=== PATIENT | male | born 1940 | race Caucasian/White ===

== ENCOUNTER 2016-06-02 20:44 | Inpatient (IN) | payer MEDICARE, BC ==
[~2016-06-02] VITALS: Ht 177.8 cm; Wt 103.5 kg
[~2016-06-02 20:44] MED LIST: ASPI81TA2 PO; CITA20TA5 PO; CLON0.5T3 PO; DOCU50CA9 PO; DONE10TA7 PO; LEVO137T3 PO; MELA3TAB PO; MEMA10TA PO; MULT-18 PO; OMEG300C PO; OMEP40CA5 PO; SIMV40TA3 PO; colon health
[2016-06-02 21:55] LABS: BASO # 0.1 x10^3/uL (0.0-0.2); BASO % 1 % (0-3); EOS % 2 % (0-3); HEMATOCRIT 31.7 % (39.0-53.0); HEMOGLOBIN 10.4 g/dL (13.0-17.5); LYMPH # 2.3 x10^3/uL (1.0-4.8); LYMPH % 20 % (24-48); MEAN CORPUSCULAR HEMOGLOBIN 29 pg (25-35); MEAN CORPUSCULAR HGB CONC 33 g/dL (31-37); MEAN CORPUSCULAR VOLUME 88 fL (79-100); MONO % 6 % (0-9); NEUT % 71 % (31-73); PLATELET COUNT 426 x10^3/uL (140-400); RED BLOOD COUNT 3.58 x10^6/uL (4.30-5.70); RED CELL DISTRIBUTION WIDTH 14.8 % (11.5-14.5); WHITE BLOOD COUNT 11.2 x10^3/uL (4.0-11.0)
[2016-06-02] MEDS ORDERED: FUROSEMIDE 40 MG/4 ML VIAL IVP ONE (22:00)
[2016-06-02 22:10] LABS: CALCIUM 8.8 mg/dL (8.5-10.1); CREATININE 1.4 mg/dL (0.7-1.3); GFR 49.4; POTASSIUM 4.1 mmol/L (3.5-5.1)
[2016-06-02 22:14] LABS: ALBUMIN 2.9 g/dL (3.4-5.0); DIRECT BILIRUBIN 0.1 mg/dL (0.0-0.2); TOTAL BILIRUBIN 0.6 mg/dL (0.2-1.0)
[2016-06-02 22:18] LABS: % BASOS 2 % (0-3); % EOS 1 % (0-5); PLT ESTIMATE INCREASED (ADEQUATE)
[2016-06-02] MEDS ORDERED: ACETAMINOPHEN 325 MG TABLET. PO PRN (23:00)
[2016-06-02] MEDS ORDERED: ONDANSETRON PF 4 MG/2 ML VIAL. IV PRN (23:00)
[2016-06-02 23:14] LABS: INR 1.7 (0.8-1.1); PROTHROMBIN TIME PATIENT 18.7 SEC (11.7-14.0)
[2016-06-03] VITALS (7 sets, daily range): BP systolic 100–131; BP diastolic 55–76
[2016-06-03] MEDS ORDERED: WARF5TAB7 PO (01:15)
[2016-06-03] MEDS ORDERED: LEVO150T5 PO (01:15)
[2016-06-03] MEDS ORDERED: CITA40TA5 PO (01:15)
[2016-06-03] MEDS ORDERED: ENOX100D3 SQ (01:15)
--- NOTE | 2016-06-03 05:20 | PHYS DOC ---
Past Medical History Past Medical History: DVT, Other Additional Past Medical Histor: pulmonary embolism, Alzheimer's, sleep apnea Past Surgical History: Knee Replacement, Other Additional Past Surgical Histo: IVC filter, stimulator in back, cataracts Alcohol Use: None Drug Use: None Adult General Chief Complaint Chief Complaint: LOWER EXTREMITY SWELLING HPI HPI Patient is a 76 year old gentleman who has a history significant for DVT in the past presents to ER today secondary to anasarca. Patient apparently had a DVT back in 2008 and had an inferior vena cava filter placed at that time. Patient was admitted to [facility] approximately 2 weeks ago at which time he was found to have a DVT in his right lower extremity on May 19 and then again another DVT. Left lower external E on May 27. Patient was discharged home on May 31. The patient's reports that she has been taking care of him without any incident up until this evening when she noticed that he was complaining of pain to his groin. She reports that she looked his groin and she had a significant amount of swelling around his scrotum although his legs as well as stomach. Patient reports that her has no shortness of breath chest pain fever shakes chills. She reports she has had a small cough. She reports it had decreased by mouth intake. She reports that he's had decreased urinary output as well. Patient has no history of hypertension diabetes living longer kidney problems. She denies any history of CHF in the past. Review of Systems Review of Systems Constitutional: Denies fever or chills [] Eyes: Denies change in visual acuity, redness, or eye pain [] All other review of systems are negative except as documented in the history of present illness portion. Current Medications Current Medications Current Medications Medications (Trade) Dose Ordered Sig/[facility] Start Time Stop Time Status Last Admin Dose Admin Acetaminophen (Tylenol) 650 mg PRN Q4HRS PRN 06/02/16 23:00 06/03/16 22:59 Furosemide (Lasix) 40 mg 1X ONCE 06/02/16 22:00 06/02/16 22:01 DC 06/02/16 22:13 40 MG Ondansetron HCl (Zofran) 4 mg PRN Q8HRS PRN 06/02/16 23:00 06/03/16 22:59 Allergies Allergies Allergies Coded Allergies Type Severity Reaction Last Updated Verified No Known Drug Allergies 06/18/14 No Physical Exam Physical Exam Constitutional: Well developed, well nourished, no acute distress, non-toxic appearance. [] HENT: Normocephalic, atraumatic, bilateral external ears normal, oropharynx moist, no oral exudates, nose normal. [] Eyes: PERRLA, EOMI, conjunctiva normal, no discharge. [] Neck: Normal range of motion, no tenderness, supple, no stridor. [] Cardiovascular:Heart rate regular rhythm, no murmur [] Lungs & Thorax: Bilateral breath sounds clear to auscultation [] Abdomen: Bowel sounds normal, soft, no tenderness, no masses, no pulsatile masses. [] Skin: Warm, dry, no erythema, no rash. [] Back: No tenderness, no CVA tenderness. [] Extremities: Patient has 3+ pitting edema all the way up to his abdomen. Patient has a significant amount of scrotal edema. Patient has a significant amount of penile edema. Neurologic: Alert and oriented X 3, normal motor function, normal sensory function, no focal deficits noted. [] Psychologic: Affect normal, judgement normal, mood normal. [] Current Patient Data Vital Signs Vital Signs Date Time Temp Pulse Resp B/P Pulse Ox O2 Delivery O2 Flow Rate FiO2 06/02/16 22:49 72 17 125/66 98 Room Air 06/02/16 20:45 98.8 98.8 Lab Values Laboratory Tests Test 06/02/16 20:50 White Blood Count 11.2x10^3/uL (4.0-11.0) H Red Blood Count 3.58x10^6/uL (4.30-5.70) L Hemoglobin 10.4g/dL (13.0-17.5) L Hematocrit 31.7% (39.0-53.0) L Mean Corpuscular Volume 88fL (79-100) Mean Corpuscular Hemoglobin 29pg (25-35) Mean Corpuscular Hemoglobin Concent 33g/dL (31-37) Red Cell Distribution Width 14.8% (11.5-14.5) H Platelet Count 426x10^3/uL (140-400) H Neutrophils (%) (Auto) 71% (31-73) Lymphocytes (%) (Auto) 20% (24-48) L Monocytes (%) (Auto) 6% (0-9) Eosinophils (%) (Auto) 2% (0-3) Basophils (%) (Auto) 1% (0-3) Neutrophils # (Auto) 8.0x10^3uL (1.8-7.7) H Lymphocytes # (Auto) 2.3x10^3/uL (1.0-4.8) Monocytes # (Auto) 0.7x10^3/uL (0.0-1.1) Eosinophils # (Auto) 0.2x10^3/uL (0.0-0.7) Basophils # (Auto) 0.1x10^3/uL (0.0-0.2) Segmented Neutrophils % 66% (35-66) Band Neutrophils % 2% (0-9) Lymphocytes % 21% (24-48) L Atypical Lymphocytes % (Manual) 1% (0-0) H Monocytes % 7% (0-10) Eosinophils % 1% (0-5) Basophils % 2% (0-3) Platelet Estimate Increased (ADEQUATE) Prothrombin Time 18.7SEC (11.7-14.0) H Prothrombin Time INR 1.7 (0.8-1.1) H Sodium Level 140mmol/L (136-145) Potassium Level 4.1mmol/L (3.5-5.1) Chloride Level 105mmol/L (98-107) Carbon Dioxide Level 26mmol/L (21-32) Anion Gap 9 (6-14) Blood Urea Nitrogen 23mg/dL (8-26) Creatinine 1.4mg/dL (0.7-1.3) H Estimated GFR (Cockcroft-Gault) 49.4 Glucose Level 95mg/dL (70-99) Calcium Level 8.8mg/dL (8.5-10.1) Total Bilirubin 0.6mg/dL (0.2-1.0) Direct Bilirubin 0.1mg/dL (0.0-0.2) Aspartate Amino Transferase (AST) 64U/L (15-37) H Alanine Aminotransferase (ALT) 60U/L (16-63) Alkaline Phosphatase 90U/L (46-116) Troponin I Quantitative < 0.017ng/mL (0.000-0.055) TE-Tjq-C-Type Natriuretic Peptide 559pg/mL (0-449) H Total Protein 7.0g/dL (6.4-8.2) Albumin 2.9g/dL (3.4-5.0) L Laboratory Tests 06/02/16 20:50 Laboratory Tests 06/02/16 20:50 EKG EKG [] Radiology/Procedures Radiology/Procedures [] Chest x-ray did not reveal any evidence of pulmonary edema. Patient's EKG reveals sinus tachycardia at 107 with evidence of a right bundle branch block. Course & Med Decision Making Course & Med Decision Making Pertinent Labs and Imaging studies reviewed. (See chart for details) [] This is a 76-year-old gentleman who presents to the ER today with anasarca. Patient has an elevated BNP. This is concerning for possible new onset CHF versus increased peripheral edema secondary to his IVC filter with possible migration of this clot proximally. Patient is currently on Lovenox and Coumadin. Patient will be admitted for diuresis and further evaluation of his cardiac status and for assessment and treatment of his anasarca. Dragon Disclaimer Dragon Disclaimer This electronic medical record was generated, in whole or in part, using a voice recognition dictation system. Departure Departure Impression: Primary Impression: Anasarca Disposition: ADMITTED INPATIENT Admitting Physician: Sam Warren Condition: GUARDED Referrals: LAURO PRESSLEY MD (PCP) VU URIBE MD Jun 03, 2016 05:20
--- NOTE | 2016-06-03 08:23 | RAD ---
Portable chest, 06/02/2016: History: Anasarca Comparison is made to a study from 06/18/2014. The heart size and pulmonary vascularity are normal. No pulmonary infiltrates are seen. There is no evidence of pleural fluid. IMPRESSION: No acute cardiopulmonary abnormality is detected.
--- NOTE | 2016-06-03 10:47 | PDOC2 ---
CHIQUI PLEITEZ BONUS CLERK 06/03/16 1047: CARDIAC CONSULT DATE OF CONSULT Date of Consult DATE: 06/03/16 TIME: 10:38 REASON FOR CONSULT Reason for Consult: Anasarca, elevated BNP REFERRING PHYSICIAN Referring Physician: Manjit SOURCE Source: Chart review, Patient HISTORY OF PRESENT ILLNESS HISTORY OF PRESENT ILLNESS This is a 76 yo male admitted for notable anasarca with LE DVTs. His LE DVTs are well documented with placement of IVC filter in the past as well. He has Alzheimers dementia and currently confused which is likely his baseline. I was unable to obtain details of his symptoms since his family is not available. Per chart review, no notable symptoms of SOA nor CORDOVA. No noted CP, no palpitations, or reports of any arrhythmias via tele monitor. He has been noted with right groin tenderness, scrotal edema, anasarca. Consult is for anasarca and elevated BNP. Clinically no symptoms of acute CHF. No known CAD. CHF. PAST MEDICAL HISTORY Cardiovascular: HTN, Syncope, Hyperlipidemia Pulmonary: Pulmonary embolus (with multiple LE DVT), Other (KEM) CENTRAL NERVOUS SYSTEM: CVA, Dementia (alzheimers) GI: Constipation Musculoskeletal: Osteoarthritis Endocrine: Diabetes (2), Hypothyroidism Dermatology: No pertinent hx PAST SURGICAL HISTORY Past Surgical History: Cataract Removal, Total knee replacement, Other (back stimulator; IVC filter; colon surgery) FAMILY HISTORY Family History: Family History Unknown SOCIAL HISTORY Smoke: No ALCOHOL: none Drugs: None Lives: Half-Way CURRENT MEDICATIONS CURRENT MEDICATIONS Current Medications Medications (Trade) Dose Ordered Sig/Luis Armando Route PRN Reason Start Time Stop Time Status Last Admin Dose Admin Furosemide (Lasix) 40 mg 1X ONCE IVP 06/02/16 22:00 06/02/16 22:01 DC 06/02/16 22:13 ALLERGIES ALLERGIES: Coded Allergies: No Known Drug Allergies (Unverified , 06/18/14) ROS Review of System unreliable due to dementia PHYSICAL EXAM General: Alert, Cooperative, No acute distress HEENT: Atraumatic, Mucous membr. moist/pink Lungs: Clear to auscultation, Normal air movement Heart: Regular rate, Normal S1, Normal S2, Other (possible ansarca) Abdomen: Other (unable to assess due to active tension to abdominal muscles during palpation, but notable grimacing) Extremities: No cyanosis, Other (2-3+ bilateral LE pitting edema from foot to thigh. scrotal edema, ) Skin: No breakdown, No significant lesion, Other (multiple small scab lesions to left thigh) Neuro: Normal speech, Sensation intact Psych/Mental Status: Other (confused but pleasant) MUSCULOSKELETAL: Osteoarthritic changes both hands VITALS VITALS Vital Signs Date Time Temp Pulse Resp B/P Pulse Ox O2 Delivery O2 Flow Rate FiO2 06/03/16 07:00 98.0 66 20 102/57 95 Nasal Cannula 2.0 98.0 LABS Lab: Laboratory Tests Test 06/02/16 20:50 White Blood Count 11.2x10^3/uL (4.0-11.0) Red Blood Count 3.58x10^6/uL (4.30-5.70) Hemoglobin 10.4g/dL (13.0-17.5) Hematocrit 31.7% (39.0-53.0) Mean Corpuscular Volume 88fL (79-100) Mean Corpuscular Hemoglobin 29pg (25-35) Mean Corpuscular Hemoglobin Concent 33g/dL (31-37) Red Cell Distribution Width 14.8% (11.5-14.5) Platelet Count 426x10^3/uL (140-400) Neutrophils (%) (Auto) 71% (31-73) Lymphocytes (%) (Auto) 20% (24-48) Monocytes (%) (Auto) 6% (0-9) Eosinophils (%) (Auto) 2% (0-3) Basophils (%) (Auto) 1% (0-3) Neutrophils # (Auto) 8.0x10^3uL (1.8-7.7) Lymphocytes # (Auto) 2.3x10^3/uL (1.0-4.8) Monocytes # (Auto) 0.7x10^3/uL (0.0-1.1) Eosinophils # (Auto) 0.2x10^3/uL (0.0-0.7) Basophils # (Auto) 0.1x10^3/uL (0.0-0.2) Segmented Neutrophils % 66% (35-66) Band Neutrophils % 2% (0-9) Lymphocytes % 21% (24-48) Atypical Lymphocytes % (Manual) 1% (0-0) Monocytes % 7% (0-10) Eosinophils % 1% (0-5) Basophils % 2% (0-3) Platelet Estimate Increased (ADEQUATE) Prothrombin Time 18.7SEC (11.7-14.0) Prothromb Time International Ratio 1.7 (0.8-1.1) Sodium Level 140mmol/L (136-145) Potassium Level 4.1mmol/L (3.5-5.1) Chloride Level 105mmol/L (98-107) Carbon Dioxide Level 26mmol/L (21-32) Anion Gap 9 (6-14) Blood Urea Nitrogen 23mg/dL (8-26) Creatinine 1.4mg/dL (0.7-1.3) Estimated GFR (Cockcroft-Gault) 49.4 Glucose Level 95mg/dL (70-99) Calcium Level 8.8mg/dL (8.5-10.1) Total Bilirubin 0.6mg/dL (0.2-1.0) Direct Bilirubin 0.1mg/dL (0.0-0.2) Aspartate Amino Transf (AST/SGOT) 64U/L (15-37) Alanine Aminotransferase (ALT/SGPT) 60U/L (16-63) Alkaline Phosphatase 90U/L (46-116) Troponin I Quantitative < 0.017ng/mL (0.000-0.055) JX-Dgb-C-Type Natriuretic Peptide 559pg/mL (0-449) Total Protein 7.0g/dL (6.4-8.2) Albumin 2.9g/dL (3.4-5.0) ASSESSMENT/PLAN ASSESSMENT/PLAN 1. Acute DVT: extensive to bilateral LE with ultrasound noted on 05/21/2016 and . Recent discharge from [facility] noted with start of lovenox and coumadin. Defer to PCP. 2. Anasarca with elevated BNP: No acute symptoms of CHF. Peripheral edema primarily to LE and scrotal region more likely from extensive DVT. Inferior vena cava syndrome would also be part of the differential. Would recommend imaging especially to IVC filter site and will defer to PCP. Pro NT BNP at 559 which is when age adjusted does not reflect any significant CHF. No notable bradycardia in relation to aricept use. Will obtain EKG and TTE if cooperative to note baseline otherwise no further cardiac testing is warranted. 3. HTN: controlled. 4. HLP 5. 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 Alzheimers dementia: likely moderate to advanced stage 7. Hx of CVA 8. Hx of hypothyroidism Problems: TINY TSANG MD 06/03/16 1156: CARDIAC CONSULT ALLERGIES ALLERGIES: Coded Allergies: No Known Drug Allergies (Unverified , 06/18/14) ASSESSMENT/PLAN ASSESSMENT/PLAN Patient seen and examined. Agree with AEROSPACE TECHNICIAN's assessment and plan. Anasarca multifactorial probably due to combination of extensive DVT, mild acute on chronic diastolic heart failure and hypoalbuminemia. Continue gentle diuresis. Continue treatment for DVT per PCP. Check 2-D echo to assess LV systolic function. Thank you for consultation. Problems: CHIQUI PLEITEZ APRN Jun 03, 2016 10:47 TINY TSANG MD Jun 03, 2016 11:56
[2016-06-03] MEDS ORDERED: FUROSEMIDE 40 MG/4 ML VIAL IVP ONE (12:00)
--- NOTE | 2016-06-03 12:22 | EKG ---
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
--- NOTE | 2016-06-03 12:32 | HP ---
ADMIT DATE: 06/03/2016 CHIEF COMPLAINT: Swelling of the legs. HISTORY OF PRESENT ILLNESS: The patient is a pleasant elderly male who presented to the ER with some swelling. He has a history of DVT and has an IVC filter. He also has anasarca. His BNP level was 559 in the ER. I have discussed the case with the ER physician. We are going to admit the patient and consult Cardiology. PAST MEDICAL HISTORY: DVT, chronic swelling, IVC filter, hypertension, previous syncope, previous PE, dementia, osteoarthritis, diabetes. ALLERGIES: None. FAMILY HISTORY: Diabetes. SOCIAL HISTORY: Does not drink, smoke or take drugs. MEDICATIONS: Reviewed, please refer to the MRAD. REVIEW OF SYSTEMS: Unreliable. The patient is too confused. PHYSICAL EXAMINATION: VITAL SIGNS: Temperature afebrile, pulse 80, respirations 18, blood pressure 117/65. GENERAL: He is alert but very confused, pleasant. HEART: Normal S1, S2. LUNGS: Clear. ABDOMEN: Soft, positive bowel sounds. EXTREMITIES: 2-3+ edema. SKIN: No rashes. PSYCHIATRIC: He is very anxious. VASCULAR: Good capillary refill. ENDOCRINE: No thyromegaly. LYMPHATICS: No cervical nodes. HEMATOPOIETIC: No bruising. LABORATORY DATA: White count 11, hemoglobin 10, platelets 426. Electrolytes are normal other than a creatinine of 1.4. AST slightly high at 64. Troponin is 0. BNP 559, albumin 2.9. ASSESSMENT AND PLAN: Swelling with probable anasarca and malnutrition and elevated BNP with possible congestive heart failure. The patient has been admitted, will consult Cardiology, serial enzymes, serial EKGs, cardiac monitoring, IV Lasix, continue home medicines, PT/OT, fdc evaluation. FELICITA GOMEZ DO DR: BEVERLY/aleksandr JOB#: [id number] / [id number]
--- NOTE | 2016-06-03 13:16 | EKG ---
[facility] [address] [place] [address] Test Date: 2016-06-03 Test Time: 13:02:14 Pat Name: LYNNE MCLEAN Department: Room: 532 1 Gender: M General Service Officer: TARUN : 1940 Requested By: CHIQUI PLEITEZ Order Number: [id number] Reading MD: Cici Kramer Measurements Intervals [place] Rate: 76 P: 0 CT: 176 QRS: -28 QRSD: 104 T: 20 QT: 422 QTc: 480 Interpretive Statements SINUS RHYTHM LEFTWARD AXIS LOW LIMB LEAD VOLTAGE QRS(T) CONTOUR ABNORMALITY CONSIDER ANTEROSEPTAL MYOCARDIAL DAMAGE T ABNORMALITY IN ANTERIOR LEADS PRLONGED QT ABNORMAL ECG Electronically Signed On 06-05-2016 0:34:24 ASSISTANT TENNIS COACH by Cici Kramer
[2016-06-03] MEDS ORDERED: WARFARIN 6 MG TABLET. PO ONE (16:00)
[2016-06-03] MEDS: ASPIRIN 81 MG TAB.CHEW PO SCH (17:25)
[2016-06-03] MEDS: CITALOPRAM 20 MG TABLET. PO SCH (17:25)
[2016-06-03] MEDS: DOCUSATE SODIUM 100 MG CAPSULE PO SCH (17:25)
[2016-06-03] MEDS: ENOXAPARIN ** NOTE DOSE ** SYRINGE SQ SCH ×2 (17:25→23:19)
[2016-06-03] MEDS: MULTIVITAMIN with MINERAL TABLET. PO SCH (17:25)
[2016-06-03] MEDS ORDERED: NON FORMULARY ITEM (Melatonin 1 TAB) PO SCH (21:00)
[2016-06-04 03:06] VITALS: BP 107/75
[2016-06-04 07:00] VITALS: BP 142/88
[2016-06-04] MEDS: PANTOPRAZOLE 40 MG TABLET. PO SCH ×2 (07:30→11:10)
[2016-06-04] MEDS ORDERED: WARFARIN 5 MG TABLET. PO SCH (09:00)
--- NOTE | 2016-06-04 10:06 | CARD ---
APPROVED REPORT EXAM: Two-dimensional and M-mode echocardiogram with Doppler and color Doppler. Other Information Quality : Fair INDICATION Murmur Elevated BNP 2D DIMENSIONS RVDd3.4 (2.9-3.5cm)Left Atrium(2D)4.2 (1.6-4.0cm) IVSd1.4 (0.7-1.1cm)Aortic Root(2D)3.6 (2.0-3.7cm) LVDd4.6 (3.9-5.9cm)LVOT Diameter2.2 (1.8-2.4cm) PWd1.3 (0.7-1.1cm)LVDs3.4 (2.5-4.0cm) FS (%) 27.2 %SV51.8 ml LVEF(%)53.0 (>50%) Mitral Valve MV E Ddunugll31.0cm/sMV DECEL ODOH555il MV A Dcarcyma98.4cm/sE/A Ratio0.6 TDI Lateral E' P. V8.37cm/sMedial E' P. V5.73cm/s E/Lateral E'6.5E/Medial E'9.4 LEFT VENTRICLE The left ventricle is normal size. There is mild concentric left ventricular hypertrophy. The left ve ntricular systolic function is normal. The Ejection Fraction is 55-60%. There is normal LV segmental wall motion. Transmitral Doppler flow pattern is Grade I-abnormal relaxation pattern. RIGHT VENTRICLE The right ventricle is normal size. The right ventricular systolic function is normal. ATRIA The left atrium is mildly dilated. The right atrium size is normal. The interatrial septum is intact with no evidence for an atrial septal defect or patent foramen ovale as noted on 2-D or Doppler imagi ng. AORTIC VALVE The aortic valve is calcified but opens well. Doppler and Color Flow revealed no significant aortic r egurgitation. There is no significant aortic valvular stenosis. MITRAL VALVE The mitral valve is calcified but opens well. There is no evidence of mitral valve prolapse. There is no mitral valve stenosis. Doppler and Color-flow revealed trace mitral regurgitation. TRICUSPID VALVE The tricuspid valve is normal in structure and function. Doppler and Color Flow revealed trace tricus pid regurgitation. There is no pulmonary hypertension. There is no tricuspid valve stenosis. PULMONIC VALVE The pulmonic valve is not well visualized. GREAT VESSELS The aortic root is mildly enlarged at 3.6 cm. The ascending aorta is not well seen. The IVC was not v isualized. PERICARDIAL EFFUSION There is no evidence of significant pericardial effusion. Critical Notification Critical Value: No <Conclusion> The left ventricular systolic function is normal. The Ejection Fraction is 55-60%. There is normal LV segmental wall motion. Transmitral Doppler flow pattern is Grade I-abnormal relaxation pattern. The left atrium is mildly dilated. Trace mitral regurgitation. Doppler and Color Flow revealed trace tricuspid regurgitation. There is no evidence of significant pericardial effusion.
[2016-06-04 10:27] VITALS: BP 140/80
[2016-06-04] MEDS: LEVOTHYROXINE 150 MCG TABLET PO SCH (11:10)
[2016-06-04] MEDS: MULTIVITAMIN with MINERAL TABLET. PO SCH (11:10)
[2016-06-04] MEDS: CITALOPRAM 20 MG TABLET. PO SCH (11:10)
[2016-06-04] MEDS: DOCUSATE SODIUM 100 MG CAPSULE PO SCH (11:10)
[2016-06-04] MEDS: ASPIRIN 81 MG TAB.CHEW PO SCH (11:10)
[2016-06-04] MEDS: ENOXAPARIN ** NOTE DOSE ** SYRINGE SQ SCH ×2 (11:11→21:01)
--- NOTE | 2016-06-04 14:20 | PDOC ---
PROGRESS NOTES Chief Complaint Chief Complaint CHF DVT, chronic swelling, IVC filter, hypertension, previous syncope, previous PE, dementia, osteoarthritis, diabetes. History of Present Illness History of Present Illness Pt pleasantly confused VSS DWRN Vitals Vitals Vital Signs Date Time Temp Pulse Resp B/P Pulse Ox O2 Delivery O2 Flow Rate FiO2 06/04/16 10:27 97.6 77 16 140/80 94 Room Air 97.6 06/03/16 11:00 Physical Exam General: Alert, Cooperative, No acute distress Heart: Regular rate, Normal S1, Normal S2, Other (possible ansarca) Lungs: Crackles Abdomen: Normal bowel sounds, Soft, Other (unable to assess due to active tension to abdominal muscles during palpation, but notable grimacing) Extremities: Other (2-3+ bilateral LE pitting edema from foot to thigh. scrotal edema, ) Skin: No rashes, No breakdown, No significant lesion, Other (multiple small scab lesions to left thigh) Review of Systems Review of Systems unreliable Assessment and Plan Assessmemt and Plan Problems Medical Problems: (1) Anasarca Status: Acute CHF DVT, chronic swelling, IVC filter, hypertension, previous syncope, previous PE, dementia, osteoarthritis, diabetes. Plan Diuretics Cardio consult Enzymes Echo PTOT Home meds child monitor Prog guarded long trem LTC? Problems: Comment Review of Relevant I have reviewed the following items jorge (where applicable) has been applied. Labs Laboratory Tests Test 06/02/16 20:50 White Blood Count 11.2x10^3/uL (4.0-11.0) Red Blood Count 3.58x10^6/uL (4.30-5.70) Hemoglobin 10.4g/dL (13.0-17.5) Hematocrit 31.7% (39.0-53.0) Mean Corpuscular Volume 88fL (79-100) Mean Corpuscular Hemoglobin 29pg (25-35) Mean Corpuscular Hemoglobin Concent 33g/dL (31-37) Red Cell Distribution Width 14.8% (11.5-14.5) Platelet Count 426x10^3/uL (140-400) Neutrophils (%) (Auto) 71% (31-73) Lymphocytes (%) (Auto) 20% (24-48) Monocytes (%) (Auto) 6% (0-9) Eosinophils (%) (Auto) 2% (0-3) Basophils (%) (Auto) 1% (0-3) Neutrophils # (Auto) 8.0x10^3uL (1.8-7.7) Lymphocytes # (Auto) 2.3x10^3/uL (1.0-4.8) Monocytes # (Auto) 0.7x10^3/uL (0.0-1.1) Eosinophils # (Auto) 0.2x10^3/uL (0.0-0.7) Basophils # (Auto) 0.1x10^3/uL (0.0-0.2) Segmented Neutrophils % 66% (35-66) Band Neutrophils % 2% (0-9) Lymphocytes % 21% (24-48) Atypical Lymphocytes % (Manual) 1% (0-0) Monocytes % 7% (0-10) Eosinophils % 1% (0-5) Basophils % 2% (0-3) Platelet Estimate Increased (ADEQUATE) Prothrombin Time 18.7SEC (11.7-14.0) Prothromb Time International Ratio 1.7 (0.8-1.1) Sodium Level 140mmol/L (136-145) Potassium Level 4.1mmol/L (3.5-5.1) Chloride Level 105mmol/L (98-107) Carbon Dioxide Level 26mmol/L (21-32) Anion Gap 9 (6-14) Blood Urea Nitrogen 23mg/dL (8-26) Creatinine 1.4mg/dL (0.7-1.3) Estimated GFR (Cockcroft-Gault) 49.4 Glucose Level 95mg/dL (70-99) Calcium Level 8.8mg/dL (8.5-10.1) Total Bilirubin 0.6mg/dL (0.2-1.0) Direct Bilirubin 0.1mg/dL (0.0-0.2) Aspartate Amino Transf (AST/SGOT) 64U/L (15-37) Alanine Aminotransferase (ALT/SGPT) 60U/L (16-63) Alkaline Phosphatase 90U/L (46-116) Troponin I Quantitative < 0.017ng/mL (0.000-0.055) KT-Gpk-M-Type Natriuretic Peptide 559pg/mL (0-449) Total Protein 7.0g/dL (6.4-8.2) Albumin 2.9g/dL (3.4-5.0) Medications Current Medications Furosemide (Lasix) 40 mg 1X ONCE IVP Last administered on 06/02/16 22:13; Start 06/02/16 at 22:00; Stop 06/02/16 at 22:01; Status DC Ondansetron HCl (Zofran) 4 mg PRN Q8HRS PRN IV NAUSEA/VOMITING; Start 06/02/16 at 23:00; Stop 06/03/16 at 22:59; Status DC Acetaminophen (Tylenol) 650 mg PRN Q4HRS PRN PO FEVER; Start 06/02/16 at 23:00 ; Stop 06/03/16 at 22:59; Status DC Furosemide (Lasix) 40 mg 1X ONCE IVP Last administered on 06/03/16 12:23; Start 06/03/16 at 12:00; Stop 06/03/16 at 12:01; Status DC Aspirin (Children'S Aspirin) 81 mg DAILY PO Last administered on 06/04/16 11: 10; Start 06/03/16 at 15:00 Enoxaparin Sodium (Lovenox 100mg Syringe) 100 mg BID SQ Last administered on 11:11; Start 06/03/16 at 14:00 Levothyroxine Sodium (Synthroid) 150 mcg DAILYAC PO Last administered on 11:10; Start 06/04/16 at 07:30 Warfarin Sodium (Coumadin) 5 mg DAILY PO ; Start 06/04/16 at 09:00; Stop at 09:00; Status DC Citalopram Hydrobromide (Celexa) 40 mg DAILY PO Last administered on 06/04/16 11:10; Start 06/03/16 at 15:00 Non-Formulary Medication 1 tab QHS PO ; Start 06/03/16 at 21:00; Stop 06/03/16 at 21:00; Status DC Pantoprazole Sodium (Protonix) 40 mg DAILYAC PO Last administered on 06/04/16 11:10; Start 06/03/16 at 17:30 Docusate Sodium (Colace) 100 mg DAILY PO Last administered on 06/04/16 11:10; Start 06/03/16 at 15:00 Multivitamins/ Calcium (Thera M Plus) 1 tab DAILY PO Last administered on 11:10; Start 06/03/16 at 15:00 Warfarin Sodium (Coumadin Per Pharmacy) 1 each PRN DAILY PRN [facility] SEE COMMENTS Last administered on 06/03/16 15:35; Start 06/03/16 at 15:00 Warfarin Sodium (Coumadin) 6 mg 1X WARF ONCE PO Last administered on 17:25; Start 06/03/16 at 16:00; Stop 06/03/16 at 16:01; Status DC Active Scripts Active Reported Levothyroxine Sodium 150 Mcg Tablet 150 Mcg PO DAILY Enoxaparin Sodium 100 Mg/1 Ml Disp.syrin 100 Mg SQ BID Warfarin Sodium 5 Mg Tablet 5 Mg PO DAILY Citalopram Hbr (Citalopram Hydrobromide) 40 Mg Tablet 40 Mg PO DAILY Stool Softener (Docusate Sodium) 50 Mg Capsule Unknown Dose PO Daily Vitamin (Multivitamin) 1 Each Tablet 1 Each PO Melatonin 3 Mg Tablet 1 Tab PO QHS Aspirin 81 Mg Tab.chew 1 Tab PO DAILY Simvastatin 40 Mg Tablet 1 Tab PO QHS Omeprazole 40 Mg Capsule. 1 Cap PO DAILY Vitals/I & O Vital Sign - Last 24 Hours 06/03/16 06/03/16 06/03/16 06/03/16 14:56 19:00 20:00 23:00 Temp 97.9 95.9 97.5 97.9 95.9 97.5 Pulse 72 79 78 Resp 20 20 20 B/P 100/55 107/70 131/76 Pulse Ox 96 94 96 O2 Delivery Room Air Room Air Room Air Room Air 06/04/16 06/04/16 06/04/16 03:06 07:00 10:27 Temp 98.5 98.1 97.6 98.5 98.1 97.6 Pulse 66 76 77 Resp 20 16 16 B/P 107/75 142/88 140/80 Pulse Ox 95 95 94 O2 Delivery Room Air Room Air Room Air Intake and Output 06/03/16 06/03/16 06/04/16 15:00 23:00 07:00 Intake Total 100 ml 60 ml Output Total 1550 ml 1300 ml 250 ml Balance -1550 ml -1200 ml -190 ml CASTLE,NIAL K III DO Jun 04, 2016 14:20
[2016-06-04 14:33] VITALS: BP 125/68
[2016-06-04 17:33] LABS: INR 2.2 (0.8-1.1)
[2016-06-04 19:00] VITALS: BP 125/75
[2016-06-04] MEDS ORDERED: ANTI-COAG MONITOR BY PHARMACY. MC PRN (19:00)
[2016-06-04] MEDS: WARFARIN 5 MG TABLET. PO SCH (21:11)
[2016-06-04 23:00] VITALS: BP 152/95
[2016-06-05 03:08] VITALS: BP 122/66
[2016-06-05 07:00] VITALS: BP 118/71
[2016-06-05 08:04] LABS: INR 2.4 (0.8-1.1); PROTHROMBIN TIME PATIENT 25.1 SEC (11.7-14.0)
[2016-06-05] MEDS: ENOXAPARIN ** NOTE DOSE ** SYRINGE SQ SCH (09:00)
--- NOTE | 2016-06-05 09:28 | PDOC ---
PROGRESS NOTES Chief Complaint Chief Complaint A/P 1. Acute DVT: extensive to bilateral LE on Warfarin 2. Anasarca with elevated BNP: Echo normal EF, due to DVT, 3. HTN: controlled. 5. 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 Alzheimer dementia: at baseline 7. Hx of CVA 8. Hx of hypothyroidism Plan Echo results reviewed, not acute CHF leg swelling due to DVT Warfarin INR goal 2-3. Placement SNU vs HH , History of Present Illness History of Present Illness Pt pleasantly confused VSS DWRN Vitals Vitals Vital Signs Date Time Temp Pulse Resp B/P Pulse Ox O2 Delivery O2 Flow Rate FiO2 06/05/16 07:00 98.3 68 118/71 99 Room Air 98.3 06/05/16 03:08 20 Physical Exam General: Alert, Cooperative, No acute distress, Other (not oriented. ) Heart: Regular rate, Normal S1, Normal S2, Other (possible ansarca) Lungs: Crackles Abdomen: Normal bowel sounds, Soft, Other (unable to assess due to active tension to abdominal muscles during palpation, but notable grimacing) Extremities: Other (2-3+ bilateral LE pitting edema from foot to thigh. scrotal edema, ) Skin: No rashes, No breakdown, No significant lesion, Other (multiple small scab lesions to left thigh) Labs LABS Laboratory Tests Test 06/04/16 17:05 06/05/16 07:25 Prothrombin Time 23.0SEC (11.7-14.0) 25.1SEC (11.7-14.0) Prothromb Time International Ratio 2.2 (0.8-1.1) 2.4 (0.8-1.1) Assessment and Plan Assessmemt and Plan Problems Medical Problems: (1) Anasarca Status: Acute Problems: Comment Review of Relevant I have reviewed the following items jorge (where applicable) has been applied. Labs Laboratory Tests Test 06/04/16 17:05 06/05/16 07:25 Prothrombin Time 23.0SEC (11.7-14.0) 25.1SEC (11.7-14.0) Prothromb Time International Ratio 2.2 (0.8-1.1) 2.4 (0.8-1.1) Laboratory Tests Test 06/04/16 17:05 06/05/16 07:25 Prothrombin Time 23.0SEC (11.7-14.0) 25.1SEC (11.7-14.0) Prothromb Time International Ratio 2.2 (0.8-1.1) 2.4 (0.8-1.1) Medications Current Medications Furosemide (Lasix) 40 mg 1X ONCE IVP Last administered on 06/02/16 22:13; Start 06/02/16 at 22:00; Stop 06/02/16 at 22:01; Status DC Ondansetron HCl (Zofran) 4 mg PRN Q8HRS PRN IV NAUSEA/VOMITING; Start 06/02/16 at 23:00; Stop 06/03/16 at 22:59; Status DC Acetaminophen (Tylenol) 650 mg PRN Q4HRS PRN PO FEVER; Start 06/02/16 at 23:00 ; Stop 06/03/16 at 22:59; Status DC Furosemide (Lasix) 40 mg 1X ONCE IVP Last administered on 06/03/16 12:23; Start 06/03/16 at 12:00; Stop 06/03/16 at 12:01; Status DC Aspirin (Children'S Aspirin) 81 mg DAILY PO Last administered on 06/04/16 11: 10; Start 06/03/16 at 15:00 Enoxaparin Sodium (Lovenox 100mg Syringe) 100 mg BID SQ Last administered on 21:01; Start 06/03/16 at 14:00 Levothyroxine Sodium (Synthroid) 150 mcg DAILYAC PO Last administered on 11:10; Start 06/04/16 at 07:30 Warfarin Sodium (Coumadin) 5 mg DAILY PO ; Start 06/04/16 at 09:00; Stop at 09:00; Status DC Citalopram Hydrobromide (Celexa) 40 mg DAILY PO Last administered on 06/04/16 11:10; Start 06/03/16 at 15:00 Non-Formulary Medication 1 tab QHS PO ; Start 06/03/16 at 21:00; Stop 06/03/16 at 21:00; Status DC Pantoprazole Sodium (Protonix) 40 mg DAILYAC PO Last administered on 06/04/16 11:10; Start 06/03/16 at 17:30 Docusate Sodium (Colace) 100 mg DAILY PO Last administered on 06/04/16 11:10; Start 06/03/16 at 15:00 Multivitamins/ Calcium (Thera M Plus) 1 tab DAILY PO Last administered on 11:10; Start 06/03/16 at 15:00 Warfarin Sodium (Coumadin Per Pharmacy) 1 each PRN DAILY PRN [facility] SEE COMMENTS Last administered on 06/04/16 19:01; Start 06/03/16 at 15:00 Warfarin Sodium (Coumadin) 6 mg 1X WARF ONCE PO Last administered on 17:25; Start 06/03/16 at 16:00; Stop 06/03/16 at 16:01; Status DC Warfarin Sodium (Coumadin) 5 mg DAILY16 PO Last administered on 06/04/16 21:11 ; Start 06/04/16 at 18:51 Info (Anti-Coagulation Monitoring By Pharmacy) 1 each PRN DAILY PRN [facility] SEE COMMENTS; Start 06/04/16 at 19:00 Active Scripts Active Reported Levothyroxine Sodium 150 Mcg Tablet 150 Mcg PO DAILY Enoxaparin Sodium 100 Mg/1 Ml Disp.syrin 100 Mg SQ BID Warfarin Sodium 5 Mg Tablet 5 Mg PO DAILY Citalopram Hbr (Citalopram Hydrobromide) 40 Mg Tablet 40 Mg PO DAILY Stool Softener (Docusate Sodium) 50 Mg Capsule Unknown Dose PO Daily Vitamin (Multivitamin) 1 Each Tablet 1 Each PO Melatonin 3 Mg Tablet 1 Tab PO QHS Aspirin 81 Mg Tab.chew 1 Tab PO DAILY Simvastatin 40 Mg Tablet 1 Tab PO QHS Omeprazole 40 Mg Capsule. 1 Cap PO DAILY Vitals/I & O Vital Sign - Last 24 Hours 06/04/16 06/04/16 06/04/16 06/04/16 10:27 14:33 19:00 20:00 Temp 97.6 97.5 98.4 97.6 97.5 98.4 Pulse 77 69 74 Resp 16 16 20 B/P 140/80 125/68 125/75 Pulse Ox 94 94 95 O2 Delivery Room Air Room Air Room Air Room Air 06/04/16 06/05/16 06/05/16 23:00 03:08 07:00 Temp 98.7 98.7 98.3 98.7 98.7 98.3 Pulse 91 73 68 Resp 20 20 B/P 152/95 122/66 118/71 Pulse Ox 94 95 99 O2 Delivery Room Air Room Air Room Air Intake and Output 06/04/16 06/04/16 06/05/16 15:00 23:00 07:00 Intake Total 360 ml 580 ml 240 ml Output Total 350 ml 300 ml Balance 360 ml 230 ml -60 ml LEONOR ALBARRAN MD Jun 05, 2016 09:28
[2016-06-05 10:35] VITALS: BP 126/66
[2016-06-05] MEDS: PANTOPRAZOLE 40 MG TABLET. PO SCH (13:21)
[2016-06-05] MEDS: DOCUSATE SODIUM 100 MG CAPSULE PO SCH (13:22)
[2016-06-05] MEDS: ASPIRIN 81 MG TAB.CHEW PO SCH (13:22)
[2016-06-05] MEDS: LEVOTHYROXINE 150 MCG TABLET PO SCH (13:22)
[2016-06-05] MEDS: CITALOPRAM 20 MG TABLET. PO SCH (13:22)
[2016-06-05] MEDS: MULTIVITAMIN with MINERAL TABLET. PO SCH (13:22)
[2016-06-05 15:00] VITALS: BP 121/72
[2016-06-05] MEDS: WARFARIN 5 MG TABLET. PO SCH (17:19)
[2016-06-05 19:00] VITALS: BP 120/77
[2016-06-05 23:00] VITALS: BP 110/64
[2016-06-06 03:00] VITALS: BP 124/48
[2016-06-06 05:39] LABS: BASO # 0.1 x10^3/uL (0.0-0.2); BASO % 1 % (0-3); EOS % 3 % (0-3); HEMOGLOBIN 9.8 g/dL (13.0-17.5); LYMPH # 2.2 x10^3/uL (1.0-4.8); LYMPH % 24 % (24-48); MEAN CORPUSCULAR HEMOGLOBIN 29 pg (25-35); MEAN CORPUSCULAR HGB CONC 33 g/dL (31-37); MEAN CORPUSCULAR VOLUME 88 fL (79-100); MONO % 6 % (0-9); NEUT % 67 % (31-73); PLATELET COUNT 392 x10^3/uL (140-400); RED CELL DISTRIBUTION WIDTH 14.6 % (11.5-14.5); WHITE BLOOD COUNT 9.2 x10^3/uL (4.0-11.0)
[2016-06-06 05:45] LABS: INR 2.4 (0.8-1.1); PROTHROMBIN TIME PATIENT 24.9 SEC (11.7-14.0)
[2016-06-06 06:00] LABS: CALCIUM 8.5 mg/dL (8.5-10.1); CREATININE 1.2 mg/dL (0.7-1.3); POTASSIUM 3.8 mmol/L (3.5-5.1)
[2016-06-06 07:00] VITALS: BP 114/58
[2016-06-06] MEDS: PANTOPRAZOLE 40 MG TABLET. PO SCH (08:35)
[2016-06-06] MEDS: LEVOTHYROXINE 150 MCG TABLET PO SCH (08:35)
[2016-06-06] MEDS: CITALOPRAM 20 MG TABLET. PO SCH (08:35)
[2016-06-06] MEDS: MULTIVITAMIN with MINERAL TABLET. PO SCH (08:35)
[2016-06-06] MEDS: DOCUSATE SODIUM 100 MG CAPSULE PO SCH (08:35)
[2016-06-06] MEDS: ASPIRIN 81 MG TAB.CHEW PO SCH (08:35)
[2016-06-06 11:00] VITALS: BP 110/60
[2016-06-06 15:00] VITALS: BP_SYST 112; BP_SYST 118; BP_DIAS 19; BP_DIAS 22
--- NOTE | 2016-06-06 15:12 | PDOC ---
PROGRESS NOTES Chief Complaint Chief Complaint A/P 1. Acute DVT: extensive to bilateral LE on Warfarin 2. Anasarca with elevated BNP: Echo normal EF, due to DVT, 3. HTN: controlled. 5. 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 Alzheimer dementia: at baseline 7. Hx of CVA 8. Hx of hypothyroidism 9. Jerky movements , History of Present Illness History of Present Illness Pt pleasantly confused Jerky movements ABle to feed himself Recently klonipin was dcd bec "had too many meds". HAs been on it for yrs - Will go home with HH PLAN: REstart low dose klonipin BID Likely this is from withdrawal of the benzo causing the jerky movements MAy consult [facility] ilia with HH Dw family -agreeable Vitals Vitals Vital Signs Date Time Temp Pulse Resp B/P Pulse Ox O2 Delivery O2 Flow Rate FiO2 06/06/16 11:00 97.7 70 20 110/60 96 Room Air 97.7 Physical Exam General: Alert, Cooperative, No acute distress, Other (not oriented. ) Heart: Regular rate, Normal S1, Normal S2, Other (possible ansarca) Lungs: Crackles Abdomen: Normal bowel sounds, Soft, Other (unable to assess due to active tension to abdominal muscles during palpation, but notable grimacing) Extremities: Other (2-3+ bilateral LE pitting edema from foot to thigh. scrotal edema, ) Skin: No rashes, No breakdown, No significant lesion, Other (multiple small scab lesions to left thigh) Labs LABS Laboratory Tests Test 06/06/16 05:00 White Blood Count 9.2x10^3/uL (4.0-11.0) Red Blood Count 3.40x10^6/uL (4.30-5.70) Hemoglobin 9.8g/dL (13.0-17.5) Hematocrit 30.0% (39.0-53.0) Mean Corpuscular Volume 88fL (79-100) Mean Corpuscular Hemoglobin 29pg (25-35) Mean Corpuscular Hemoglobin Concent 33g/dL (31-37) Red Cell Distribution Width 14.6% (11.5-14.5) Platelet Count 392x10^3/uL (140-400) Neutrophils (%) (Auto) 67% (31-73) Lymphocytes (%) (Auto) 24% (24-48) Monocytes (%) (Auto) 6% (0-9) Eosinophils (%) (Auto) 3% (0-3) Basophils (%) (Auto) 1% (0-3) Neutrophils # (Auto) 6.1x10^3uL (1.8-7.7) Lymphocytes # (Auto) 2.2x10^3/uL (1.0-4.8) Monocytes # (Auto) 0.6x10^3/uL (0.0-1.1) Eosinophils # (Auto) 0.2x10^3/uL (0.0-0.7) Basophils # (Auto) 0.1x10^3/uL (0.0-0.2) Prothrombin Time 24.9SEC (11.7-14.0) Prothromb Time International Ratio 2.4 (0.8-1.1) Sodium Level 143mmol/L (136-145) Potassium Level 3.8mmol/L (3.5-5.1) Chloride Level 106mmol/L (98-107) Carbon Dioxide Level 30mmol/L (21-32) Anion Gap 7 (6-14) Blood Urea Nitrogen 16mg/dL (8-26) Creatinine 1.2mg/dL (0.7-1.3) Estimated GFR (Cockcroft-Gault) 59.0 Glucose Level 98mg/dL (70-99) Calcium Level 8.5mg/dL (8.5-10.1) Review of Systems Review of Systems limited - dementia Assessment and Plan Assessmemt and Plan REstart low dose klonipin BID Likely this is from withdrawal of the benzo causing the jerky movements MAy consult [facility] ilia with SANJANA Winkler family -agreeable Problems Medical Problems: (1) Anasarca Status: Acute Problems: Comment Review of Relevant I have reviewed the following items jorge (where applicable) has been applied. Labs Laboratory Tests Test 06/04/16 17:05 06/05/16 07:25 06/06/16 05:00 Prothrombin Time 23.0SEC (11.7-14.0) 25.1SEC (11.7-14.0) 24.9SEC (11.7-14.0) Prothromb Time International Ratio 2.2 (0.8-1.1) 2.4 (0.8-1.1) 2.4 (0.8-1.1) White Blood Count 9.2x10^3/uL (4.0-11.0) Red Blood Count 3.40x10^6/uL (4.30-5.70) Hemoglobin 9.8g/dL (13.0-17.5) Hematocrit 30.0% (39.0-53.0) Mean Corpuscular Volume 88fL (79-100) Mean Corpuscular Hemoglobin 29pg (25-35) Mean Corpuscular Hemoglobin Concent 33g/dL (31-37) Red Cell Distribution Width 14.6% (11.5-14.5) Platelet Count 392x10^3/uL (140-400) Neutrophils (%) (Auto) 67% (31-73) Lymphocytes (%) (Auto) 24% (24-48) Monocytes (%) (Auto) 6% (0-9) Eosinophils (%) (Auto) 3% (0-3) Basophils (%) (Auto) 1% (0-3) Neutrophils # (Auto) 6.1x10^3uL (1.8-7.7) Lymphocytes # (Auto) 2.2x10^3/uL (1.0-4.8) Monocytes # (Auto) 0.6x10^3/uL (0.0-1.1) Eosinophils # (Auto) 0.2x10^3/uL (0.0-0.7) Basophils # (Auto) 0.1x10^3/uL (0.0-0.2) Sodium Level 143mmol/L (136-145) Potassium Level 3.8mmol/L (3.5-5.1) Chloride Level 106mmol/L (98-107) Carbon Dioxide Level 30mmol/L (21-32) Anion Gap 7 (6-14) Blood Urea Nitrogen 16mg/dL (8-26) Creatinine 1.2mg/dL (0.7-1.3) Estimated GFR (Cockcroft-Gault) 59.0 Glucose Level 98mg/dL (70-99) Calcium Level 8.5mg/dL (8.5-10.1) Laboratory Tests Test 06/06/16 05:00 White Blood Count 9.2x10^3/uL (4.0-11.0) Red Blood Count 3.40x10^6/uL (4.30-5.70) Hemoglobin 9.8g/dL (13.0-17.5) Hematocrit 30.0% (39.0-53.0) Mean Corpuscular Volume 88fL (79-100) Mean Corpuscular Hemoglobin 29pg (25-35) Mean Corpuscular Hemoglobin Concent 33g/dL (31-37) Red Cell Distribution Width 14.6% (11.5-14.5) Platelet Count 392x10^3/uL (140-400) Neutrophils (%) (Auto) 67% (31-73) Lymphocytes (%) (Auto) 24% (24-48) Monocytes (%) (Auto) 6% (0-9) Eosinophils (%) (Auto) 3% (0-3) Basophils (%) (Auto) 1% (0-3) Neutrophils # (Auto) 6.1x10^3uL (1.8-7.7) Lymphocytes # (Auto) 2.2x10^3/uL (1.0-4.8) Monocytes # (Auto) 0.6x10^3/uL (0.0-1.1) Eosinophils # (Auto) 0.2x10^3/uL (0.0-0.7) Basophils # (Auto) 0.1x10^3/uL (0.0-0.2) Prothrombin Time 24.9SEC (11.7-14.0) Prothromb Time International Ratio 2.4 (0.8-1.1) Sodium Level 143mmol/L (136-145) Potassium Level 3.8mmol/L (3.5-5.1) Chloride Level 106mmol/L (98-107) Carbon Dioxide Level 30mmol/L (21-32) Anion Gap 7 (6-14) Blood Urea Nitrogen 16mg/dL (8-26) Creatinine 1.2mg/dL (0.7-1.3) Estimated GFR (Cockcroft-Gault) 59.0 Glucose Level 98mg/dL (70-99) Calcium Level 8.5mg/dL (8.5-10.1) Medications Current Medications Furosemide (Lasix) 40 mg 1X ONCE IVP Last administered on 06/02/16 22:13; Start 06/02/16 at 22:00; Stop 06/02/16 at 22:01; Status DC Ondansetron HCl (Zofran) 4 mg PRN Q8HRS PRN IV NAUSEA/VOMITING; Start 06/02/16 at 23:00; Stop 06/03/16 at 22:59; Status DC Acetaminophen (Tylenol) 650 mg PRN Q4HRS PRN PO FEVER; Start 06/02/16 at 23:00 ; Stop 06/03/16 at 22:59; Status DC Furosemide (Lasix) 40 mg 1X ONCE IVP Last administered on 06/03/16 12:23; Start 06/03/16 at 12:00; Stop 06/03/16 at 12:01; Status DC Aspirin (Children'S Aspirin) 81 mg DAILY PO Last administered on 06/06/16 08: 35; Start 06/03/16 at 15:00 Enoxaparin Sodium (Lovenox 100mg Syringe) 100 mg BID SQ Last administered on 21:01; Start 06/03/16 at 14:00; Stop 06/05/16 at 12:51; Status DC Levothyroxine Sodium (Synthroid) 150 mcg DAILYAC PO Last administered on 08:35; Start 06/04/16 at 07:30 Warfarin Sodium (Coumadin) 5 mg DAILY PO ; Start 06/04/16 at 09:00; Stop at 09:00; Status DC Citalopram Hydrobromide (Celexa) 40 mg DAILY PO Last administered on 06/06/16 08:35; Start 06/03/16 at 15:00 Non-Formulary Medication 1 tab QHS PO ; Start 06/03/16 at 21:00; Stop 06/03/16 at 21:00; Status DC Pantoprazole Sodium (Protonix) 40 mg DAILYAC PO Last administered on 06/06/16 08:35; Start 06/03/16 at 17:30 Docusate Sodium (Colace) 100 mg DAILY PO Last administered on 06/06/16 08:35; Start 06/03/16 at 15:00 Multivitamins/ Calcium (Thera M Plus) 1 tab DAILY PO Last administered on 08:35; Start 06/03/16 at 15:00 Warfarin Sodium (Coumadin Per Pharmacy) 1 each PRN DAILY PRN MC SEE COMMENTS Last administered on 06/06/16 13:20; Start 06/03/16 at 15:00 Warfarin Sodium (Coumadin) 6 mg 1X WARF ONCE PO Last administered on 17:25; Start 06/03/16 at 16:00; Stop 06/03/16 at 16:01; Status DC Warfarin Sodium (Coumadin) 5 mg DAILY16 PO Last administered on 06/05/16 17:19 ; Start 06/04/16 at 18:51 Info (Anti-Coagulation Monitoring By Pharmacy) 1 each PRN DAILY PRN MC SEE COMMENTS; Start 06/04/16 at 19:00; Stop 06/05/16 at 12:51; Status DC Active Scripts Active Reported Levothyroxine Sodium 150 Mcg Tablet 150 Mcg PO DAILY Enoxaparin Sodium 100 Mg/1 Ml Disp.syrin 100 Mg SQ BID Warfarin Sodium 5 Mg Tablet 5 Mg PO DAILY Citalopram Hbr (Citalopram Hydrobromide) 40 Mg Tablet 40 Mg PO DAILY Stool Softener (Docusate Sodium) 50 Mg Capsule Unknown Dose PO Daily Vitamin (Multivitamin) 1 Each Tablet 1 Each PO Melatonin 3 Mg Tablet 1 Tab PO QHS Aspirin 81 Mg Tab.chew 1 Tab PO DAILY Simvastatin 40 Mg Tablet 1 Tab PO QHS Omeprazole 40 Mg Capsule. 1 Cap PO DAILY Vitals/I & O Vital Sign - Last 24 Hours 06/05/16 06/05/16 06/05/16 06/06/16 19:00 20:00 23:00 03:00 Temp 98.1 97.5 97.7 98.1 97.5 97.7 Pulse 74 69 65 Resp 18 18 18 B/P 120/77 110/64 124/48 Pulse Ox 95 97 97 O2 Delivery Room Air Room Air Room Air Room Air 06/06/16 06/06/16 06/06/16 07:00 08:00 11:00 Temp 98.4 97.7 98.4 97.7 Pulse 61 70 Resp 19 20 B/P 114/58 110/60 Pulse Ox 96 96 O2 Delivery Room Air Room Air Room Air Intake and Output 06/05/16 06/05/16 06/06/16 15:00 23:00 07:00 Intake Total 350 ml 360 ml 0 ml Output Total 650 ml Balance 350 ml 360 ml -650 ml EKATERINA CRUMP MD Jun 06, 2016 15:12
[2016-06-06] MEDS: WARFARIN 5 MG TABLET. PO SCH (15:29)
[2016-06-06] MEDS: CLONAZEPAM 0.5 MG TABLET PO SCH ×2 (15:29→23:02)
--- NOTE | 2016-06-06 16:54 | PDOC2 ---
NEUROLOGY CONSULT Date of Admission Date of Admission DATE: 06/06/16 TIME: 16:43 Reason for Consult Reason for Consult: IMPRESSION: Abnormal jerking movements. LE edema. HTN HLD Hypothyroidism Anxiety Depression DVT s/p IVC placement RECOMMENDATIONS/PLAN: HCT Lab: see orders. EEG Beta-block Treat medical diseases. HISTORY OF THE PRESENT ILLNESS: [id number]-male patient was admitted due to LE edema and other medical diseases. He has been having chronic abnormal jerking like movements in hands and feet, but more obvious in hands. PAST MEDICAL HISTORY: Please see above. PAST SURGERY HISTORY: IVC placement. Knee surgery ALLERGY: Reviewed. MEDICATIONS: Refer to [facility] HISTORY: Non contributory. Unknown PD hx. SOCIAL HISTORY: Denies smoking, drinking, and illicit drug use. REVIEW OF SYSTEMS: Constitutional: No malnutrition, weight loss, cachexia. Head: No traumatic brain or head injury. Skin: No edema, or rash. Ear: No infection, tinnitus. Eyes: No vision loss or color blindness. Nose: No bleeding or purulent discharges. Hearing: Hearing decrease. Neck: No injury. Cardiac: Syncope, HTN, HLD. Pulmonary: No COPD. GI: No GI ulcer, GI bleeding. Urinary/genital: No dysuria, hematuria, incontinence. Endocrinologic: Diabetes Mellitus Skeletomuscular: No muscular atrophy, deformity. Neurological: see HP. Psychiatric: Denies drug use/abuse. Otherwise, not [id number] review of systems. PHYSICAL EXAMINATION: General appearance is in no acute distress. HEENT: Normocephalic and nontraumatic. Eyes, nose, ears, and throat are unremarkable. Neck is supple. No lymphadenopathy. No bruits are heard over the carotid artery. No crepitus. Cardiovascular: S1, S2, regular rate and rhythm. Pulmonary: Clear to auscultation bilaterally. Abdomen: Bowel sounds are positive. Extremities: No rash, lesions, or edema. No restriction of range of motion NEUROLOGICAL EXAMINATION: Awake. Oriented to time, place and person. PERRL. EOMI. CN: no focal findings. Muscle tone: Mildly increased in right UE. Muscle strength: 5- DTR: 2- Plantar reflex: Flexor response bilaterally Gait: not examined in bed. Sensory exam: no abnormal findings. No cerebellar signs elicited. F-T-N test accurate. Current Medications Current Medications Current Medications Furosemide (Lasix) 40 mg 1X ONCE IVP Last administered on 06/02/16 22:13; Start 06/02/16 at 22:00; Stop 06/02/16 at 22:01; Status DC Ondansetron HCl (Zofran) 4 mg PRN Q8HRS PRN IV NAUSEA/VOMITING; Start 06/02/16 at 23:00; Stop 06/03/16 at 22:59; Status DC Acetaminophen (Tylenol) 650 mg PRN Q4HRS PRN PO FEVER; Start 06/02/16 at 23:00 ; Stop 06/03/16 at 22:59; Status DC Furosemide (Lasix) 40 mg 1X ONCE IVP Last administered on 06/03/16 12:23; Start 06/03/16 at 12:00; Stop 06/03/16 at 12:01; Status DC Aspirin (Children'S Aspirin) 81 mg DAILY PO Last administered on 06/06/16 08: 35; Start 06/03/16 at 15:00 Enoxaparin Sodium (Lovenox 100mg Syringe) 100 mg BID SQ Last administered on 21:01; Start 06/03/16 at 14:00; Stop 06/05/16 at 12:51; Status DC Levothyroxine Sodium (Synthroid) 150 mcg DAILYAC PO Last administered on 08:35; Start 06/04/16 at 07:30 Warfarin Sodium (Coumadin) 5 mg DAILY PO ; Start 06/04/16 at 09:00; Stop at 09:00; Status DC Citalopram Hydrobromide (Celexa) 40 mg DAILY PO Last administered on 06/06/16 08:35; Start 06/03/16 at 15:00 Non-Formulary Medication 1 tab QHS PO ; Start 06/03/16 at 21:00; Stop 06/03/16 at 21:00; Status DC Pantoprazole Sodium (Protonix) 40 mg DAILYAC PO Last administered on 06/06/16 08:35; Start 06/03/16 at 17:30 Docusate Sodium (Colace) 100 mg DAILY PO Last administered on 06/06/16 08:35; Start 06/03/16 at 15:00 Multivitamins/ Calcium (Thera M Plus) 1 tab DAILY PO Last administered on 08:35; Start 06/03/16 at 15:00 Warfarin Sodium (Coumadin Per Pharmacy) 1 each PRN DAILY PRN MC SEE COMMENTS Last administered on 06/06/16 13:20; Start 06/03/16 at 15:00 Warfarin Sodium (Coumadin) 6 mg 1X WARF ONCE PO Last administered on 17:25; Start 06/03/16 at 16:00; Stop 06/03/16 at 16:01; Status DC Warfarin Sodium (Coumadin) 5 mg DAILY16 PO Last administered on 06/06/16 15:29 ; Start 06/04/16 at 18:51 Info (Anti-Coagulation Monitoring By Pharmacy) 1 each PRN DAILY PRN MC SEE COMMENTS; Start 06/04/16 at 19:00; Stop 06/05/16 at 12:51; Status DC Clonazepam (Klonopin) 0.5 mg BID PO Last administered on 06/06/16 15:29; Start 06/06/16 at 15:15 Active Scripts Active Reported Levothyroxine Sodium 150 Mcg Tablet 150 Mcg PO DAILY Enoxaparin Sodium 100 Mg/1 Ml Disp.syrin 100 Mg SQ BID Warfarin Sodium 5 Mg Tablet 5 Mg PO DAILY Citalopram Hbr (Citalopram Hydrobromide) 40 Mg Tablet 40 Mg PO DAILY Stool Softener (Docusate Sodium) 50 Mg Capsule Unknown Dose PO Daily Vitamin (Multivitamin) 1 Each Tablet 1 Each PO Melatonin 3 Mg Tablet 1 Tab PO QHS Aspirin 81 Mg Tab.chew 1 Tab PO DAILY Simvastatin 40 Mg Tablet 1 Tab PO QHS Omeprazole 40 Mg Capsule. 1 Cap PO DAILY Allergies Allergies: Coded Allergies: No Known Drug Allergies (Unverified , 06/18/14) Vitals VITALS Vital Signs Date Time Temp Pulse Resp B/P Pulse Ox O2 Delivery O2 Flow Rate FiO2 06/06/16 15:00 112/22 06/06/16 15:00 98.1 81 22 92 Room Air 98.1 Labs Labs Laboratory Tests Test 06/04/16 17:05 06/05/16 07:25 06/06/16 05:00 Prothrombin Time 23.0SEC (11.7-14.0) 25.1SEC (11.7-14.0) 24.9SEC (11.7-14.0) Prothromb Time International Ratio 2.2 (0.8-1.1) 2.4 (0.8-1.1) 2.4 (0.8-1.1) White Blood Count 9.2x10^3/uL (4.0-11.0) Red Blood Count 3.40x10^6/uL (4.30-5.70) Hemoglobin 9.8g/dL (13.0-17.5) Hematocrit 30.0% (39.0-53.0) Mean Corpuscular Volume 88fL (79-100) Mean Corpuscular Hemoglobin 29pg (25-35) Mean Corpuscular Hemoglobin Concent 33g/dL (31-37) Red Cell Distribution Width 14.6% (11.5-14.5) Platelet Count 392x10^3/uL (140-400) Neutrophils (%) (Auto) 67% (31-73) Lymphocytes (%) (Auto) 24% (24-48) Monocytes (%) (Auto) 6% (0-9) Eosinophils (%) (Auto) 3% (0-3) Basophils (%) (Auto) 1% (0-3) Neutrophils # (Auto) 6.1x10^3uL (1.8-7.7) Lymphocytes # (Auto) 2.2x10^3/uL (1.0-4.8) Monocytes # (Auto) 0.6x10^3/uL (0.0-1.1) Eosinophils # (Auto) 0.2x10^3/uL (0.0-0.7) Basophils # (Auto) 0.1x10^3/uL (0.0-0.2) Sodium Level 143mmol/L (136-145) Potassium Level 3.8mmol/L (3.5-5.1) Chloride Level 106mmol/L (98-107) Carbon Dioxide Level 30mmol/L (21-32) Anion Gap 7 (6-14) Blood Urea Nitrogen 16mg/dL (8-26) Creatinine 1.2mg/dL (0.7-1.3) Estimated GFR (Cockcroft-Gault) 59.0 Glucose Level 98mg/dL (70-99) Calcium Level 8.5mg/dL (8.5-10.1) Laboratory Tests Test 06/06/16 05:00 White Blood Count 9.2x10^3/uL (4.0-11.0) Red Blood Count 3.40x10^6/uL (4.30-5.70) Hemoglobin 9.8g/dL (13.0-17.5) Hematocrit 30.0% (39.0-53.0) Mean Corpuscular Volume 88fL (79-100) Mean Corpuscular Hemoglobin 29pg (25-35) Mean Corpuscular Hemoglobin Concent 33g/dL (31-37) Red Cell Distribution Width 14.6% (11.5-14.5) Platelet Count 392x10^3/uL (140-400) Neutrophils (%) (Auto) 67% (31-73) Lymphocytes (%) (Auto) 24% (24-48) Monocytes (%) (Auto) 6% (0-9) Eosinophils (%) (Auto) 3% (0-3) Basophils (%) (Auto) 1% (0-3) Neutrophils # (Auto) 6.1x10^3uL (1.8-7.7) Lymphocytes # (Auto) 2.2x10^3/uL (1.0-4.8) Monocytes # (Auto) 0.6x10^3/uL (0.0-1.1) Eosinophils # (Auto) 0.2x10^3/uL (0.0-0.7) Basophils # (Auto) 0.1x10^3/uL (0.0-0.2) Prothrombin Time 24.9SEC (11.7-14.0) Prothromb Time International Ratio 2.4 (0.8-1.1) Sodium Level 143mmol/L (136-145) Potassium Level 3.8mmol/L (3.5-5.1) Chloride Level 106mmol/L (98-107) Carbon Dioxide Level 30mmol/L (21-32) Anion Gap 7 (6-14) Blood Urea Nitrogen 16mg/dL (8-26) Creatinine 1.2mg/dL (0.7-1.3) Estimated GFR (Cockcroft-Gault) 59.0 Glucose Level 98mg/dL (70-99) Calcium Level 8.5mg/dL (8.5-10.1) ARLENE ZHOU MD Jun 06, 2016 16:54
--- NOTE | 2016-06-06 17:54 | RAD ---
PROCEDURE CT scan of the head without contrast 06/06/2016 HISTORY Abnormal movements with confusion and dementia. TECHNIQUE Unenhanced contiguous, 5 millimeter axial sections were obtained through the head. One or more of the following individualized dose reduction techniques were utilized for this study: 1. Automated exposure control. 2. Adjustment of the mA and/or kV according to patient size. 3. Use of iterative reconstruction technique. FINDINGS Comparison study is dated 06/18/2014. There is generalized parenchymal atrophy. Areas of decreased attenuation are seen within the periventricular and subcortical white matter both cerebral hemispheres consistent with areas of small vessel ischemic disease. No acute parenchymal abnormality is seen. No extra-axial fluid collection is noted. No skull fracture is seen. Moderate mucosal thickening is seen involving right maxillary sinus. The moderate-sized fluid level seen involving left maxillary sinus. Mild mucosal thickening is seen along the left maxillary sinus. Mild to moderate mucosal thickening is seen involving the ethmoid air cells bilaterally. IMPRESSION No acute intracranial abnormality is seen. Electronically signed by: Saurav Putnam MD (Jun 06, 2016 17:53:19)
[2016-06-06] MEDS: METOPROLOL SUCC 24HR ER 25 MG TAB.ER.24H. PO SCH (18:00)
[2016-06-06 19:00] VITALS: BP 129/64
[2016-06-06 23:00] VITALS: BP 121/70
[2016-06-07 03:00] VITALS: BP 108/59
[2016-06-07 06:30] LABS: INR 2.4 (0.8-1.1); PROTHROMBIN TIME PATIENT 24.6 SEC (11.7-14.0)
[2016-06-07 07:00] VITALS: BP 106/48
[2016-06-07] MEDS: LEVOTHYROXINE 150 MCG TABLET PO SCH (07:30)
[2016-06-07] MEDS: PANTOPRAZOLE 40 MG TABLET. PO SCH (07:30)
[2016-06-07] MEDS: CITALOPRAM 20 MG TABLET. PO SCH (09:00)
[2016-06-07] MEDS: DOCUSATE SODIUM 100 MG CAPSULE PO SCH (09:00)
[2016-06-07] MEDS: ASPIRIN 81 MG TAB.CHEW PO SCH (10:30)
[2016-06-07] MEDS: CLONAZEPAM 0.5 MG TABLET PO SCH ×2 (10:30→20:23)
[2016-06-07] MEDS: MULTIVITAMIN with MINERAL TABLET. PO SCH (10:30)
[2016-06-07] MEDS: METOPROLOL SUCC 24HR ER 25 MG TAB.ER.24H. PO SCH (10:30)
[2016-06-07 11:00] VITALS: BP_SYST 107; BP_SYST 112; BP_SYST 78; BP_DIAS 47; BP_DIAS 62; BP_DIAS 68
--- NOTE | 2016-06-07 13:24 | EEG ---
DATE OF SERVICE: 06/07/2016 EEG NUMBER: [id number] OBJECTIVE: This is a 76-year-old male patient with history of mental status changes and abnormal jerking movements. EEG was requested to evaluate cerebral activity and help rule out seizure. METHODS: Twenty electrodes were applied according to the international 10-20 electrode placement system. EKG monitoring, hyperventilation, intermittent photic stimulation, monopolar and bipolar montages are routinely utilized. The record was obtained on a digital system with video monitoring. MEDICATIONS: No antiseizure medication. FINDINGS: 1. Background: The patient was recorded in the awake, drowsy and sleep states. The overall background amplitude is 10-20 microvolts. A posterior dominant rhythm of 7-8 Hz is observed with superimposed mixture in theta frequency. 2. Abnormalities: No specific epileptiform discharge or electrographic seizure is seen. Slowing in theta frequency noted < 50% of time. 3. Activation: Hyperventilation was not performed because the patient was unable to fully follow the commands. Intermittent photic stimulation was performed with photic driving. IMPRESSION: This EEG is an abnormal study for the awake, drowsy and sleep states. The posterior dominant rhythm of 7-8 Hz is slow for age. There is superimposed slowing in theta frequency < 50% of the time. No focal, lateralizing, specific epileptiform discharge, or electrographic seizure is seen. This pattern of EEG may suggest mild encephalopathy. ARLENE ZHOU MD DR: ISAC/aleksandr JOB#: [id number] / [id number] ELEUTERIO
--- NOTE | 2016-06-07 13:41 | PDOC ---
PROGRESS NOTES Chief Complaint Chief Complaint A/P 1. Acute DVT: extensive to bilateral LE on Warfarin 2. Anasarca with elevated BNP: Echo normal EF, due to DVT, 3. HTN: controlled. 5. 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 Alzheimer dementia: at baseline 7. Hx of CVA 8. Hypothyroidism, not controlled, TSH 15, 9. Jerky movements Plan 1. EEG Pending, 2. Orthostatic hypotension this morning, Bolus 500mls NS 3. Hold metoprolol 4. Echo results reviewed 5. PT/OT 6. either administration of Synthroid or timing of Synthroid should be reconsidered, it should on empty stomach, in AM Repeat TSH in few weeks and follow up with pcp. , History of Present Illness History of Present Illness Pt pleasantly confused Jerky movements ABle to feed himself Recently klonipin was dcd bec "had too many meds". HAs been on it for yrs - Will go home with HH PLAN: REstart low dose klonipin BID Likely this is from withdrawal of the benzo causing the jerky movements MAy consult enuro Home ilia with Dw family -agreeable Vitals Vitals Vital Signs Date Time Temp Pulse Resp B/P Pulse Ox O2 Delivery O2 Flow Rate FiO2 06/07/16 11:00 98.1 69 20 112/68 97 Room Air 98.1 Physical Exam General: Alert, Cooperative, No acute distress, Other (not oriented. ) Heart: Regular rate, Normal S1, Normal S2, Other Lungs: Crackles Abdomen: Normal bowel sounds, Soft, Other (unable to assess due to active tension to abdominal muscles during palpation, but notable grimacing) Extremities: Other (2-3+ bilateral LE pitting edema from foot to thigh. scrotal edema, ) Skin: No rashes, No breakdown, No significant lesion, Other (multiple small scab lesions to left thigh) Labs LABS Laboratory Tests Test 06/06/16 18:50 06/07/16 05:55 Ionized Calcium 1.16mmol/L (1.13-1.32) Thyroid Stimulating Hormone (TSH) 17.719uIU/mL (0.358-3.74) Prothrombin Time 24.6SEC (11.7-14.0) Prothromb Time International Ratio 2.4 (0.8-1.1) Assessment and Plan Assessmemt and Plan Problems Medical Problems: (1) Anasarca Status: Acute Problems: Comment Review of Relevant I have reviewed the following items jorge (where applicable) has been applied. Labs Laboratory Tests Test 06/06/16 05:00 06/06/16 18:50 06/07/16 05:55 White Blood Count 9.2x10^3/uL (4.0-11.0) Red Blood Count 3.40x10^6/uL (4.30-5.70) Hemoglobin 9.8g/dL (13.0-17.5) Hematocrit 30.0% (39.0-53.0) Mean Corpuscular Volume 88fL (79-100) Mean Corpuscular Hemoglobin 29pg (25-35) Mean Corpuscular Hemoglobin Concent 33g/dL (31-37) Red Cell Distribution Width 14.6% (11.5-14.5) Platelet Count 392x10^3/uL (140-400) Neutrophils (%) (Auto) 67% (31-73) Lymphocytes (%) (Auto) 24% (24-48) Monocytes (%) (Auto) 6% (0-9) Eosinophils (%) (Auto) 3% (0-3) Basophils (%) (Auto) 1% (0-3) Neutrophils # (Auto) 6.1x10^3uL (1.8-7.7) Lymphocytes # (Auto) 2.2x10^3/uL (1.0-4.8) Monocytes # (Auto) 0.6x10^3/uL (0.0-1.1) Eosinophils # (Auto) 0.2x10^3/uL (0.0-0.7) Basophils # (Auto) 0.1x10^3/uL (0.0-0.2) Prothrombin Time 24.9SEC (11.7-14.0) 24.6SEC (11.7-14.0) Prothromb Time International Ratio 2.4 (0.8-1.1) 2.4 (0.8-1.1) Sodium Level 143mmol/L (136-145) Potassium Level 3.8mmol/L (3.5-5.1) Chloride Level 106mmol/L (98-107) Carbon Dioxide Level 30mmol/L (21-32) Anion Gap 7 (6-14) Blood Urea Nitrogen 16mg/dL (8-26) Creatinine 1.2mg/dL (0.7-1.3) Estimated GFR (Cockcroft-Gault) 59.0 Glucose Level 98mg/dL (70-99) Calcium Level 8.5mg/dL (8.5-10.1) Ionized Calcium 1.16mmol/L (1.13-1.32) Thyroid Stimulating Hormone (TSH) 17.719uIU/mL (0.358-3.74) Laboratory Tests Test 06/06/16 18:50 06/07/16 05:55 Ionized Calcium 1.16mmol/L (1.13-1.32) Thyroid Stimulating Hormone (TSH) 17.719uIU/mL (0.358-3.74) Prothrombin Time 24.6SEC (11.7-14.0) Prothromb Time International Ratio 2.4 (0.8-1.1) Medications Current Medications Furosemide (Lasix) 40 mg 1X ONCE IVP Last administered on 06/02/16 22:13; Start 06/02/16 at 22:00; Stop 06/02/16 at 22:01; Status DC Ondansetron HCl (Zofran) 4 mg PRN Q8HRS PRN IV NAUSEA/VOMITING; Start 06/02/16 at 23:00; Stop 06/03/16 at 22:59; Status DC Acetaminophen (Tylenol) 650 mg PRN Q4HRS PRN PO FEVER; Start 06/02/16 at 23:00 ; Stop 06/03/16 at 22:59; Status DC Furosemide (Lasix) 40 mg 1X ONCE IVP Last administered on 06/03/16 12:23; Start 06/03/16 at 12:00; Stop 06/03/16 at 12:01; Status DC Aspirin (Children'S Aspirin) 81 mg DAILY PO Last administered on 06/06/16 08: 35; Start 06/03/16 at 15:00 Enoxaparin Sodium (Lovenox 100mg Syringe) 100 mg BID SQ Last administered on 21:01; Start 06/03/16 at 14:00; Stop 06/05/16 at 12:51; Status DC Levothyroxine Sodium (Synthroid) 150 mcg DAILYAC PO Last administered on 08:35; Start 06/04/16 at 07:30 Warfarin Sodium (Coumadin) 5 mg DAILY PO ; Start 06/04/16 at 09:00; Stop at 09:00; Status DC Citalopram Hydrobromide (Celexa) 40 mg DAILY PO Last administered on 06/06/16 08:35; Start 06/03/16 at 15:00 Non-Formulary Medication 1 tab QHS PO ; Start 06/03/16 at 21:00; Stop 06/03/16 at 21:00; Status DC Pantoprazole Sodium (Protonix) 40 mg DAILYAC PO Last administered on 06/06/16 08:35; Start 06/03/16 at 17:30 Docusate Sodium (Colace) 100 mg DAILY PO Last administered on 06/06/16 08:35; Start 06/03/16 at 15:00 Multivitamins/ Calcium (Thera M Plus) 1 tab DAILY PO Last administered on 08:35; Start 06/03/16 at 15:00 Warfarin Sodium (Coumadin Per Pharmacy) 1 each PRN DAILY PRN MC SEE COMMENTS Last administered on 06/06/16 13:20; Start 06/03/16 at 15:00 Warfarin Sodium (Coumadin) 6 mg 1X WARF ONCE PO Last administered on 17:25; Start 06/03/16 at 16:00; Stop 06/03/16 at 16:01; Status DC Warfarin Sodium (Coumadin) 5 mg DAILY16 PO Last administered on 06/06/16 15:29 ; Start 06/04/16 at 18:51 Info (Anti-Coagulation Monitoring By Pharmacy) 1 each PRN DAILY PRN MC SEE COMMENTS; Start 06/04/16 at 19:00; Stop 06/05/16 at 12:51; Status DC Clonazepam (Klonopin) 0.5 mg BID PO Last administered on 06/06/16 23:02; Start 06/06/16 at 15:15 Metoprolol Succinate (Toprol Xl) 25 mg DAILY PO ; Start 06/06/16 at 18:00 Active Scripts Active Reported Levothyroxine Sodium 150 Mcg Tablet 150 Mcg PO DAILY Enoxaparin Sodium 100 Mg/1 Ml Disp.syrin 100 Mg SQ BID Warfarin Sodium 5 Mg Tablet 5 Mg PO DAILY Citalopram Hbr (Citalopram Hydrobromide) 40 Mg Tablet 40 Mg PO DAILY Stool Softener (Docusate Sodium) 50 Mg Capsule Unknown Dose PO Daily Vitamin (Multivitamin) 1 Each Tablet 1 Each PO Melatonin 3 Mg Tablet 1 Tab PO QHS Aspirin 81 Mg Tab.chew 1 Tab PO DAILY Simvastatin 40 Mg Tablet 1 Tab PO QHS Omeprazole 40 Mg Capsule. 1 Cap PO DAILY Vitals/I & O Vital Sign - Last 24 Hours 06/06/16 06/06/16 06/06/16 06/06/16 15:00 15:00 19:00 20:00 Temp 98.1 97.9 98.1 97.9 Pulse 81 77 Resp 22 20 B/P 118/19 112/22 129/64 Pulse Ox 92 91 O2 Delivery Room Air Room Air Room Air 06/06/16 06/07/16 06/07/16 06/07/16 23:00 03:00 07:00 11:00 Temp 97.9 97.9 97.7 98.1 97.9 97.9 97.7 98.1 Pulse 74 64 65 67 Resp 16 20 20 19 B/P 121/70 108/59 106/48 107/62 Pulse Ox 98 92 95 97 O2 Delivery Room Air Room Air Room Air Room Air 06/07/16 06/07/16 11:00 11:00 Temp 98.1 98.1 98.1 98.1 Pulse 74 69 Resp 22 20 B/P 78/47 112/68 Pulse Ox 97 97 O2 Delivery Room Air Room Air Intake and Output 06/06/16 06/06/16 06/07/16 15:00 23:00 07:00 Intake Total 300 ml 850 ml 0 ml Output Total 600 ml 225 ml Balance 300 ml 250 ml -225 ml LEONOR ALBARRAN MD Jun 07, 2016 13:41
--- NOTE | 2016-06-07 14:56 | PDOC ---
PROGRESS NOTES Assessment Assessment Abnormal jerking movements. LE edema. HTN HLD Hypothyroidism, TSH 17.7 Anxiety Depression DVT s/p IVC placement RECOMMENDATIONS/PLAN: Beta-block Treat medical diseases. OT/PT HCT on 06/06: No acute findings. EEG on 06/07/16: Posterior dominant rhythm is slow for age. HISTORY OF THE PRESENT ILLNESS: 57-s-[id number]-male patient was admitted due to LE edema and other medical diseases. He has been having chronic abnormal jerking like movements in hands and feet, but more obvious in hands. PAST MEDICAL HISTORY: Please see above. PAST SURGERY HISTORY: IVC placement. Knee surgery ALLERGY: Reviewed. MEDICATIONS: Refer to [facility] HISTORY: Non contributory. Unknown PD hx. SOCIAL HISTORY: Denies smoking, drinking, and illicit drug use. REVIEW OF SYSTEMS: Constitutional: No malnutrition, weight loss, cachexia. Head: No traumatic brain or head injury. Skin: No edema, or rash. Ear: No infection, tinnitus. Eyes: No vision loss or color blindness. Nose: No bleeding or purulent discharges. Hearing: Hearing decrease. Neck: No injury. Cardiac: Syncope, HTN, HLD. Pulmonary: No COPD. GI: No GI ulcer, GI bleeding. Urinary/genital: No dysuria, hematuria, incontinence. Endocrinologic: Diabetes Mellitus Skeletomuscular: No muscular atrophy, deformity. Neurological: see HP. Psychiatric: Denies drug use/abuse. Otherwise, not [id number] review of systems. PHYSICAL EXAMINATION: General appearance is in no acute distress. HEENT: Normocephalic and nontraumatic. Eyes, nose, ears, and throat are unremarkable. Neck is supple. No lymphadenopathy. No bruits are heard over the carotid artery. No crepitus. Cardiovascular: S1, S2, regular rate and rhythm. Pulmonary: Clear to auscultation bilaterally. Abdomen: Bowel sounds are positive. Extremities: No rash, lesions. Edema in LE. No restriction of range of motion NEUROLOGICAL EXAMINATION: Awake. Oriented to time, place and person. PERRL. EOMI. CN: no focal findings. Muscle tone: Mildly increased in right UE. Muscle strength: 4+ DTR: 2- Plantar reflex: Flexor response bilaterally Gait: not examined in bed. Sensory exam: no abnormal findings. No obvious cerebellar signs elicited. F-T-N test fine. Objective Objective Vital Signs Date Time Temp Pulse Resp B/P Pulse Ox O2 Delivery O2 Flow Rate FiO2 06/07/16 11:00 98.1 69 20 112/68 97 Room Air 98.1 Intake and Output 06/07/16 07:00 Intake Total 1150 ml Output Total 825 ml Balance 325 ml Intake Oral 1150 ml Output Urine Total 825 ml Vitals Signs Vitals VS - Last 72 Hours, by Label Date Time Temp Pulse Resp B/P Pulse Ox O2 Delivery O2 Flow Rate FiO2 06/07/16 11:00 98.1 69 20 112/68 97 Room Air 98.1 06/07/16 11:00 98.1 74 22 78/47 97 Room Air 98.1 06/07/16 11:00 98.1 67 19 107/62 97 Room Air 98.1 06/07/16 10:30 74 78/47 06/07/16 08:00 Room Air 06/07/16 07:00 97.7 65 20 106/48 95 Room Air 97.7 06/07/16 03:00 97.9 64 20 108/59 92 Room Air 97.9 06/06/16 23:00 97.9 74 16 121/70 98 Room Air 97.9 06/06/16 20:00 Room Air 06/06/16 19:00 97.9 77 20 129/64 91 Room Air 97.9 06/06/16 15:00 112/22 06/06/16 15:00 98.1 81 22 118/19 92 Room Air 98.1 06/06/16 11:00 97.7 70 20 110/60 96 Room Air 97.7 06/06/16 08:00 Room Air 06/06/16 07:00 98.4 61 19 114/58 96 Room Air 98.4 Laboratory Laboratory Laboratory Tests Test 06/06/16 18:50 06/07/16 05:55 Ionized Calcium 1.16mmol/L (1.13-1.32) Vitamin B12 Level 550pg/mL (211-946) Thyroid Stimulating Hormone (TSH) 17.719uIU/mL (0.358-3.74) Prothrombin Time 24.6SEC (11.7-14.0) Prothromb Time International Ratio 2.4 (0.8-1.1) Medication Medications Current Medications Clonazepam (Klonopin) 0.5 mg BID PO Last administered on 06/07/16t 10:30; Start 06/06/16 at 15:15 Metoprolol Succinate (Toprol Xl) 25 mg DAILY PO ; Start 06/06/16 at 18:00 Comment Review of Relevant I have reviewed the following items jorge (where applicable) has been applied. ARLENE ZHOU MD Jun 07, 2016 14:56
[2016-06-07 15:00] VITALS: BP_SYST 111; BP_SYST 173; BP_SYST 95; BP_DIAS 107; BP_DIAS 73; BP_DIAS 75
[2016-06-07 17:17] LABS: PTH INTACT 26 pg/mL (15-65)
[2016-06-07 19:00] VITALS: BP 105/65
[2016-06-07] MEDS: WARFARIN 5 MG TABLET. PO SCH (20:23)
[2016-06-07 23:00] VITALS: BP 109/62
[2016-06-07 23:10] LABS: VITAMIN D25(OH)TOTAL 27.8 ng/mL (30.0-100.0)
[2016-06-08 02:55] VITALS: BP 108/59
[2016-06-08 07:00] VITALS: BP 119/59
[2016-06-08] MEDS ORDERED: POLYETHYLENE GLYCOL 3350 17 GM PACKET. PO ONE (08:00)
[2016-06-08] MEDS: CLONAZEPAM 0.5 MG TABLET PO SCH ×2 (08:32→19:52)
[2016-06-08] MEDS: CITALOPRAM 20 MG TABLET. PO SCH (08:32)
[2016-06-08] MEDS: PANTOPRAZOLE 40 MG TABLET. PO SCH (08:32)
[2016-06-08] MEDS: ASPIRIN 81 MG TAB.CHEW PO SCH (08:32)
[2016-06-08] MEDS: LEVOTHYROXINE 150 MCG TABLET PO SCH (08:32)
[2016-06-08] MEDS: MULTIVITAMIN with MINERAL TABLET. PO SCH (08:32)
[2016-06-08] MEDS: DOCUSATE SODIUM 100 MG CAPSULE PO SCH (08:33)
[2016-06-08] MEDS ORDERED: CLON0.5T PO (09:58)
--- NOTE | 2016-06-08 10:02 | PDOC3 ---
Discharge Summary Visit Information Date of Admission: Jun 02, 2016 Date of Discharge: Jun 08, 2016 Admitting Diagnosis Comment: 1. 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 Anasarca with elevated BNP: Echo normal EF,resolved 3. Tremors sec to BZ witrhdrawal 4. Alzheimer dementia: at baseline 5. Hx of CVA 6. Hx of hypothyroidism 7. Orthostatic HYPOtension Final Diagnosis Problems Medical Problems: (1) Anasarca Status: Acute (2) Orthostatic hypotension Status: Acute Brief Hospital Course Allergies Allergies Coded Allergies Type Severity Reaction Last Updated Verified No Known Drug Allergies 06/18/14 No Vital Signs Vital Signs Date Time Temp Pulse Resp B/P Pulse Ox O2 Delivery O2 Flow Rate FiO2 06/08/16 08:00 Room Air 06/08/16 07:00 98.8 60 19 119/59 96 98.8 Lab Results Laboratory Tests Test 06/06/16 18:50 06/07/16 05:55 Estimated GFR (Non- 64 (>59) Ionized Calcium 1.16mmol/L (1.13-1.32) EGFR 74 (>59) Vitamin B12 Level 550pg/mL (211-946) 25-Hydroxy Vitamin D Total 27.8ng/mL (30.0-100.0) Thyroid Stimulating Hormone (TSH) 17.719uIU/mL (0.358-3.74) PTH (Intact) Specimen Description Comment (.) Parathyroid Hormone (Intact) 26pg/mL (15-65) Calcium (PTH Intact) 8.3mg/dL (8.6-10.2) Creatinine (PTH Intact) 1.12mg/dL (0.76-1.27) Phosphorus (PTH Intact) 3.2mg/dL (2.5-4.5) Prothrombin Time 24.6SEC (11.7-14.0) Prothromb Time International Ratio 2.4 (0.8-1.1) Brief Hospital Course Mr. Syed is a 76 old male with baseline dementia, lives at home with family admitted for new DVT, on top of old pE on warf, INR at goal. IVC filter indwelling. VEry limited mobility sec to dementia,. COurse remarkable for tremors, has been on klonipin for yrs and dcd by PCP bec "too much meds" Upon resumption of low dose klonipin jerky movements gone, able to sleep and feed himslef. COurse remarkable for orthostasis with PT. Dcd BB, better BP now, WIll go home with HH Pt seen and examined Dw RN at bedside/; time 31 mins in paperowrk etc Discharge Information Condition at Discharge: Improved, Stable Disposition/Orders: D/C to Home w/ HH Scheduled Aspirin (Aspirin) 1 TAB PO DAILY (Reported) Citalopram Hydrobromide (Citalopram Hbr) 40 MG PO DAILY (Reported) Enoxaparin Sodium (Enoxaparin Sodium) 100 MG SQ BID (Reported) Levothyroxine Sodium (Levothyroxine Sodium) 150 MCG PO DAILY (Reported) Melatonin (Melatonin) 1 TAB PO QHS (Reported) Omeprazole (Omeprazole) 1 CAP PO DAILY (Reported) Simvastatin (Simvastatin) 1 TAB PO QHS (Reported) Warfarin Sodium (Warfarin Sodium) 5 MG PO DAILY (Reported) Miscellaneous Medications Docusate Sodium (Stool Softener) Unknown Dose PO (Reported) Multivitamin (Daily Vitamin) 1 EACH PO (Reported) Discontinued Medications Clonazepam (Clonazepam) 1 TAB PO QHS (Reported) Levothyroxine Sodium (Levothyroxine Sodium) 1 TAB PO DAILY (Reported) Memantine Hcl (Namenda) 1 TAB PO BID (Reported) [place]-3 Fatty Acids (Fish Oil) Unknown Dose PO (Reported) EKATERINA CRUMP MD Jun 08, 2016 10:02
[2016-06-08 11:00] VITALS: BP 106/64
--- NOTE | 2016-06-08 11:57 | PDOC ---
Provider Note Provider Note orthostatic still TSH is 17, on synthroid 150 PLAN: NS bokl Abdominal binder Inc synthroid to 175 Check AM cortisiol Hold dc EKATERINA Marshall RN, MD Jun 08, 2016 11:57
[2016-06-08] MEDS: CHOLECALCIFEROL (VITAMIN D3) 5,000 UNIT CAPSULE PO SCH (11:59)
[2016-06-08] MEDS: CALCIUM CARBONATE 500 MG TABLET PO SCH ×2 (11:59→18:09)
[2016-06-08] MEDS ORDERED: IV NORMAL SALINE 500ML BAG 500 ML IV ONE (12:00)
[2016-06-08] MEDS: MIDODRINE 2.5 MG TABLET PO SCH ×2 (13:09→18:09)
--- NOTE | 2016-06-08 13:59 | PDOC ---
PROGRESS NOTES Assessment Assessment Abnormal jerking movements. Orthostatic hypotension. LE edema. HTN HLD Hypothyroidism, TSH 17.7 Vit D insufficience/deficience. Anxiety Depression DVT s/p IVC placement RECOMMENDATIONS/PLAN: Discontinue beta-block, though low dose. Treat medical diseases. Vit D and Ca++ supplement, further management per PCP. OT/PT HCT on 06/06: No acute findings. EEG on 06/07/16: Posterior dominant rhythm is slow for age. HISTORY OF THE PRESENT ILLNESS: 38-i-aez-male patient was admitted due to LE edema and other medical diseases. He has been having chronic abnormal jerking like movements in hands and feet, but more obvious in hands. PAST MEDICAL HISTORY: Please see above. PAST SURGERY HISTORY: IVC placement. Knee surgery ALLERGY: Reviewed. MEDICATIONS: Refer to [facility] FAMILY HISTORY: Non contributory. Unknown PD hx. SOCIAL HISTORY: Denies smoking, drinking, and illicit drug use. REVIEW OF SYSTEMS: Constitutional: No malnutrition, weight loss, cachexia. Head: No traumatic brain or head injury. Skin: No edema, or rash. Ear: No infection, tinnitus. Eyes: No vision loss or color blindness. Nose: No bleeding or purulent discharges. Hearing: Hearing decrease. Neck: No injury. Cardiac: Syncope, HTN, HLD. Pulmonary: No COPD. GI: No GI ulcer, GI bleeding. Urinary/genital: No dysuria, hematuria, incontinence. Endocrinologic: Diabetes Mellitus Skeletomuscular: No muscular atrophy, deformity. Neurological: see HP. Psychiatric: Denies drug use/abuse. Otherwise, not [id number] review of systems. PHYSICAL EXAMINATION: General appearance is in no acute distress. HEENT: Normocephalic and nontraumatic. Eyes, nose, ears, and throat are unremarkable. Neck is supple. No lymphadenopathy. No bruits are heard over the carotid artery. No crepitus. Cardiovascular: S1, S2, regular rate and rhythm. Pulmonary: Clear to auscultation bilaterally. Abdomen: Bowel sounds are positive. Extremities: No rash, lesions. Non pitting edema in LE. No restriction of range of motion NEUROLOGICAL EXAMINATION: Awake. Oriented to time, place and person. PERRL. EOMI. CN: no focal findings. Muscle tone: Mildly increased in right UE. Muscle strength: 4+ DTR: 2- Plantar reflex: Flexor response bilaterally Gait: not examined in bed. Sensory exam: no abnormal findings. No obvious cerebellar signs elicited. F-T-N test fine. Objective Objective Vital Signs Date Time Temp Pulse Resp B/P Pulse Ox O2 Delivery O2 Flow Rate FiO2 06/08/16 13:09 65 106/64 06/08/16 11:00 98.9 19 96 Room Air 98.9 Intake and Output 06/08/16 07:00 Intake Total 1050 ml Output Total 950 ml Balance 100 ml Intake Oral 1050 ml Output Urine Total 950 ml Vitals Signs Vitals VS - Last 72 Hours, by Label Date Time Temp Pulse Resp B/P Pulse Ox O2 Delivery O2 Flow Rate FiO2 06/08/16 13:09 65 106/64 06/08/16 11:00 98.9 65 19 106/64 96 Room Air 98.9 06/08/16 08:00 Room Air 06/08/16 07:00 98.8 60 19 119/59 96 Room Air 98.8 06/08/16 02:55 97.7 61 20 108/59 97 Room Air 97.7 06/07/16 23:00 98.1 57 20 109/62 96 Room Air 98.1 06/07/16 20:00 Room Air 06/07/16 19:00 97.7 73 20 105/65 97 Room Air 97.7 06/07/16 15:00 96.6 73 19 111/75 94 Room Air 96.6 06/07/16 15:00 96.6 77 19 95/73 94 Room Air 96.6 06/07/16 15:00 96.6 64 19 173/107 98 Room Air 96.6 06/07/16 11:00 98.1 69 20 112/68 97 Room Air 98.1 06/07/16 11:00 98.1 74 22 78/47 97 Room Air 98.1 06/07/16 11:00 98.1 67 19 107/62 97 Room Air 98.1 06/07/16 10:30 74 78/47 06/07/16 08:00 Room Air 06/07/16 07:00 97.7 65 20 106/48 95 Room Air 97.7 Medication Medications Current Medications Calcium Carbonate/ Glycine (Oscal) 500 mg BIDWMEALS PO Last administered on t 11:59; Start 06/08/16 at 11:30 Levothyroxine Sodium (Synthroid) 175 mcg DAILY07 PO ; Start 06/09/16 at 07:00 Midodrine 2.5 mg 2.5 mg [id number] PO Last administered on 06/08/16 13:09; Start 06/08/16 at 13:00 Polyethylene Glycol (miraLAX PACKET) 17 gm 1X ONCE PO Last administered on 08:32; Start 06/08/16 at 08:00; Stop 06/08/16 at 08:04; Status DC Sodium Chloride (Iv Sodium Chloride 0.9% 500ml Bag) 500 ml @ 500 mls/hr 1X ONCE IV Last administered on 06/08/16 11:59; Start 06/08/16 at 12:00; Stop at 12:59; Status DC Vitamin D (Vitamin D3) 5,000 unit DAILY PO Last administered on 06/08/16 11:59 ; Start 06/08/16 at 11:00 Comment Review of Relevant I have reviewed the following items jorge (where applicable) has been applied. ARLENE ZHOU MD Jun 08, 2016 13:59
[2016-06-08 15:30] VITALS: BP_SYST 100; BP_SYST 107; BP_SYST 115; BP_DIAS 56; BP_DIAS 60; BP_DIAS 70
[2016-06-08] MEDS: WARFARIN 5 MG TABLET. PO SCH (18:09)
[2016-06-08] MEDS ORDERED: LORAZEPAM 2 MG/ML VIAL IV ONE (18:20)
[2016-06-08 19:00] VITALS: BP 120/65
[2016-06-08 23:00] VITALS: BP 128/56
[2016-06-09] VITALS (7 sets, daily range): BP systolic 67–126; BP diastolic 42–71
[2016-06-09] MEDS: PANTOPRAZOLE 40 MG TABLET. PO SCH (06:53)
[2016-06-09] MEDS: LEVOTHYROXINE 175 MCG TABLET PO SCH (06:54)
[2016-06-09] MEDS: CHOLECALCIFEROL (VITAMIN D3) 5,000 UNIT CAPSULE PO SCH (08:41)
[2016-06-09] MEDS: ASPIRIN 81 MG TAB.CHEW PO SCH (08:41)
[2016-06-09] MEDS: CALCIUM CARBONATE 500 MG TABLET PO SCH ×2 (08:41→17:49)
[2016-06-09] MEDS: CLONAZEPAM 0.5 MG TABLET PO SCH ×2 (08:41→21:48)
[2016-06-09] MEDS: MULTIVITAMIN with MINERAL TABLET. PO SCH (08:41)
[2016-06-09] MEDS: CITALOPRAM 20 MG TABLET. PO SCH (08:41)
[2016-06-09] MEDS: MIDODRINE 2.5 MG TABLET PO SCH ×2 (08:42→13:58)
[2016-06-09 08:49] LABS: INR 2.4 (0.8-1.1); PROTHROMBIN TIME PATIENT 24.8 SEC (11.7-14.0)
[2016-06-09] MEDS: DOCUSATE SODIUM 100 MG CAPSULE PO SCH (09:00)
--- NOTE | 2016-06-09 12:04 | PDOC ---
Provider Note Provider Note UROLOGY; c/c scrotal/penile mass Patient examined, advanced Alzheimers dx Exam: patient has an inflatable penile prosthesis 2 corporal cylinders and a pump located in Right scrotum does not appear functional. Plan: no intervention necessary ThanksKARINA ROY K DO Jun 09, 2016 12:04
--- NOTE | 2016-06-09 12:55 | PDOC ---
PROGRESS NOTES Chief Complaint Chief Complaint A/P 1. Acute DVT: extensive to bilateral LE on Warfarin 2. Anasarca with elevated BNP: Echo normal EF, due to DVT, 3. HTN: controlled. 5. 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 Alzheimer dementia: at baseline 7. Hx of CVA 8. Hypothyroidism, not controlled, TSH 15, 9. Jerky movements 10. Orthostatic Hypotension Plan 1. EEG no acute findings. 2. severe Orthostatic hypotension didn't' respond to fluids, re consult cardiology 3. Hold metoprolol 4. Echo results reviewed 5. PT/OT 6. either administration of Synthroid or timing of Synthroid should be reconsidered, it should on empty stomach, in AM Repeat TSH in few weeks and follow up with pcp. 7. Urology consult 8. Fall risk , History of Present Illness History of Present Illness no fever no chills low BP Vitals Vitals Vital Signs Date Time Temp Pulse Resp B/P Pulse Ox O2 Delivery O2 Flow Rate FiO2 06/09/16 11:49 98.1 67 16 105/69 93 Room Air 98.1 Physical Exam General: Alert, Cooperative, No acute distress, Other (not oriented. ) Heart: Regular rate, Normal S1, Normal S2, Other Lungs: Crackles Abdomen: Normal bowel sounds, Soft, Other (unable to assess due to active tension to abdominal muscles during palpation, but notable grimacing) Extremities: Other (2-3+ bilateral LE pitting edema from foot to thigh. scrotal edema, ) Skin: No rashes, No breakdown, No significant lesion, Other (multiple small scab lesions to left thigh) Labs LABS Laboratory Tests Test 06/08/16 15:35 06/09/16 08:10 Creatine Kinase 57U/L (39-308) Prothrombin Time 24.8SEC (11.7-14.0) Prothromb Time International Ratio 2.4 (0.8-1.1) Assessment and Plan Assessmemt and Plan Problems Medical Problems: (1) Anasarca Status: Acute (2) Orthostatic hypotension Status: Acute Problems: Comment Review of Relevant I have reviewed the following items jorge (where applicable) has been applied. Labs Laboratory Tests Test 06/08/16 15:35 06/09/16 08:10 Creatine Kinase 57U/L (39-308) Prothrombin Time 24.8SEC (11.7-14.0) Prothromb Time International Ratio 2.4 (0.8-1.1) Laboratory Tests Test 06/08/16 15:35 06/09/16 08:10 Creatine Kinase 57U/L (39-308) Prothrombin Time 24.8SEC (11.7-14.0) Prothromb Time International Ratio 2.4 (0.8-1.1) Medications Current Medications Furosemide (Lasix) 40 mg 1X ONCE IVP Last administered on 06/02/16 22:13; Start 06/02/16 at 22:00; Stop 06/02/16 at 22:01; Status DC Ondansetron HCl (Zofran) 4 mg PRN Q8HRS PRN IV NAUSEA/VOMITING; Start 06/02/16 at 23:00; Stop 06/03/16 at 22:59; Status DC Acetaminophen (Tylenol) 650 mg PRN Q4HRS PRN PO FEVER; Start 06/02/16 at 23:00 ; Stop 06/03/16 at 22:59; Status DC Furosemide (Lasix) 40 mg 1X ONCE IVP Last administered on 06/03/16 12:23; Start 06/03/16 at 12:00; Stop 06/03/16 at 12:01; Status DC Aspirin (Children'S Aspirin) 81 mg DAILY PO Last administered on 06/09/16 08: 41; Start 06/03/16 at 15:00 Enoxaparin Sodium (Lovenox 100mg Syringe) 100 mg BID SQ Last administered on 21:01; Start 06/03/16 at 14:00; Stop 06/05/16 at 12:51; Status DC Levothyroxine Sodium (Synthroid) 150 mcg DAILYAC PO Last administered on 08:32; Start 06/04/16 at 07:30; Stop 06/08/16 at 11:57; Status DC Warfarin Sodium (Coumadin) 5 mg DAILY PO ; Start 06/04/16 at 09:00; Stop at 09:00; Status DC Citalopram Hydrobromide (Celexa) 40 mg DAILY PO Last administered on 06/09/16 08:41; Start 06/03/16 at 15:00 Non-Formulary Medication 1 tab QHS PO ; Start 06/03/16 at 21:00; Stop 06/03/16 at 21:00; Status DC Pantoprazole Sodium (Protonix) 40 mg DAILYAC PO Last administered on 06/09/16 06:53; Start 06/03/16 at 17:30 Docusate Sodium (Colace) 100 mg DAILY PO Last administered on 06/06/16 08:35; Start 06/03/16 at 15:00 Multivitamins/ Calcium (Thera M Plus) 1 tab DAILY PO Last administered on 08:41; Start 06/03/16 at 15:00 Warfarin Sodium (Coumadin Per Pharmacy) 1 each PRN DAILY PRN MC SEE COMMENTS Last administered on 06/08/16 14:09; Start 06/03/16 at 15:00 Warfarin Sodium (Coumadin) 6 mg 1X WARF ONCE PO Last administered on 17:25; Start 06/03/16 at 16:00; Stop 06/03/16 at 16:01; Status DC Warfarin Sodium (Coumadin) 5 mg DAILY16 PO Last administered on 06/08/16 18:09 ; Start 06/04/16 at 18:51 Info (Anti-Coagulation Monitoring By Pharmacy) 1 each PRN DAILY PRN MC SEE COMMENTS; Start 06/04/16 at 19:00; Stop 06/05/16 at 12:51; Status DC Clonazepam (Klonopin) 0.5 mg BID PO Last administered on 06/09/16 08:41; Start 06/06/16 at 15:15 Metoprolol Succinate (Toprol Xl) 25 mg DAILY PO ; Start 06/06/16 at 18:00; Stop 06/07/16 at 16:24; Status DC Polyethylene Glycol (miraLAX PACKET) 17 gm 1X ONCE PO Last administered on 08:32; Start 06/08/16 at 08:00; Stop 06/08/16 at 08:04; Status DC Vitamin D (Vitamin D3) 5,000 unit DAILY PO Last administered on 06/09/16 08:41 ; Start 06/08/16 at 11:00 Calcium Carbonate/ Glycine (Oscal) 500 mg BIDWMEALS PO Last administered on 08:41; Start 06/08/16 at 11:30 Midodrine 2.5 mg 2.5 mg [id number] PO Last administered on 06/09/16 08:42; Start 06/08/16 at 13:00 Sodium Chloride (Iv Sodium Chloride 0.9% 500ml Bag) 500 ml @ 500 mls/hr 1X ONCE IV Last administered on 06/08/16 11:59; Start 06/08/16 at 12:00; Stop at 12:59; Status DC Levothyroxine Sodium (Synthroid) 175 mcg DAILY07 PO Last administered on 06:54; Start 06/09/16 at 07:00 Lorazepam (Ativan) 1 mg 1X ONCE IV Last administered on 06/08/16 18:25; Start 06/08/16 at 18:20; Stop 06/08/16 at 18:21; Status DC Active Scripts Active Klonopin (Clonazepam) 0.5 Mg Tablet 1 Tab PO BID Reported Levothyroxine Sodium 150 Mcg Tablet 150 Mcg PO DAILY Warfarin Sodium 5 Mg Tablet 5 Mg PO DAILY Citalopram Hbr (Citalopram Hydrobromide) 40 Mg Tablet 40 Mg PO DAILY Stool Softener (Docusate Sodium) 50 Mg Capsule Unknown Dose PO Daily Vitamin (Multivitamin) 1 Each Tablet 1 Each PO Melatonin 3 Mg Tablet 1 Tab PO QHS Aspirin 81 Mg Tab.chew 1 Tab PO DAILY Simvastatin 40 Mg Tablet 1 Tab PO QHS Omeprazole 40 Mg Capsule.dr Thomas Cap PO DAILY Vitals/I & O Vital Sign - Last 24 Hours 06/08/16 06/08/16 06/08/16 06/08/16 13:09 15:30 15:30 15:30 Pulse 65 68 66 79 B/P 106/64 107/56 115/70 100/60 06/08/16 06/08/16 06/08/16 06/08/16 18:09 19:00 20:00 23:00 Temp 97.7 96.8 97.7 96.8 Pulse 68 56 55 Resp 18 18 B/P 115/70 120/65 128/56 Pulse Ox 92 98 O2 Delivery Room Air Room Air Room Air 06/09/16 06/09/16 06/09/16 06/09/16 03:00 07:00 08:00 08:42 Temp 97.9 97.9 Pulse 61 58 58 Resp 20 14 B/P 126/63 114/69 114/69 Pulse Ox 97 93 O2 Delivery Room Air Room Air Room Air 06/09/16 06/09/16 06/09/16 10:30 10:40 11:49 Temp 98.1 98.1 Pulse 67 80 67 Resp 16 B/P 105/66 67/42 105/69 Pulse Ox 93 O2 Delivery Room Air Intake and Output 06/08/16 06/08/16 06/09/16 15:00 23:00 07:00 Intake Total 430 ml 440 ml Balance 430 ml 440 ml LEONOR ALBARRAN MD Jun 09, 2016 12:55
--- NOTE | 2016-06-09 13:21 | PDOC ---
CHIQUI PLEITEZ BOW REHAIRER 06/09/16 1321: CARDIO Progress Notes Date and Time Date of Service 06/09/2016 Time of Evaluation 1410 Subjective Subjective: No Chest Pain, No shortness of breath, No Palpitations, Other (no discomfort, confuse) Vitals Vitals Vital Signs Date Time Temp Pulse Resp B/P Pulse Ox O2 Delivery O2 Flow Rate FiO2 06/09/16 11:49 98.1 67 16 105/69 93 Room Air 98.1 Weight Weight [ ] Input and Output Intake and Output Intake and Output 06/09/16 07:00 Intake Total 870 ml Balance 870 ml Intake Oral 870 ml # Voids 7 Laboratory Labs Laboratory Tests Test 06/08/16 15:35 06/09/16 08:10 Creatine Kinase 57U/L (39-308) Prothrombin Time 24.8SEC (11.7-14.0) Prothromb Time International Ratio 2.4 (0.8-1.1) Physical Exam HEENT: Neck Supple W Full Motion Chest: Symmetric LUNGS: Clear to Auscultation Heart: S1S2, RRR Abdomen: Other (anasarca) Extremities: No Calf Tenderness, Other (3-4+ bilateral LE pitting edema) Neurology: alert, follow commands, confused (but cooperative) Assessment Assessment 1. Acute bilateral LE DVT: Extensive. on coumadin. Defer to PCP. 2. Anasarca with elevated BNP: Improved Due to extensive DVT. 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 IVC filter in place and on coumadin. Recent TTE with normal wall motion, preserved EF and no significant valvular abnormalities. 3. Orthostatic Hypotension: Persist even with IVF. Would consider neurogenic hypotension but would also suspect of orthostasis likely from inadequate preload from third spacing and possible IVC syndrome as well as contributing compression r/t constipation, Await further verification via abd CT.. Hypothyroidism contributing. Agree with midodrine. Florinef is an alternative. Mechanical compression mainly abd binder to continue. Would defer to neurology if there is an element of neurogenic issue. Await result of CT before further recommendation. 4. Constipation: no BM for 7 days now. 3. HTN: antiHTN being held. 4. HLP 5. 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 Alzheimers dementia: likely moderate to advanced stage 7. Hx of CVA 8. Hx of hypothyroidism TINY TSANG MD 06/09/16 1650: CARDIO Progress Notes Assessment Assessment Patient seen and examined. Agree with TOLL BRIDGE ATTENDANT's assessment and plan. CT scan abdomen pending. Agree with midodrine for orthostasis. CHIQUI PLEITEZ APRN Jun 09, 2016 13:21 TINY TSANG MD Jun 09, 2016 16:50
--- NOTE | 2016-06-09 14:33 | PDOC ---
PROGRESS NOTES Assessment Assessment Abnormal jerking movements. Orthostatic hypotension. LE edema. LE weakness. HTN HLD Hypothyroidism, TSH 17.7 Vit D insufficience/deficience. Anxiety Depression DVT s/p IVC placement RECOMMENDATIONS/PLAN: L-spine MRI w/wo contrast. Treat medical diseases. Vit D and Ca++ supplement, further management per PCP. OT/PT HCT on 06/06: No acute findings. EEG on 06/07/16: Posterior dominant rhythm is slow for age. HISTORY OF THE PRESENT ILLNESS: 5-g-mrc-male patient was admitted due to LE edema and other medical diseases. He has been having chronic abnormal jerking like movements in hands and feet, but more obvious in hands. PAST MEDICAL HISTORY: Please see above. PAST SURGERY HISTORY: IVC placement. Knee surgery ALLERGY: Reviewed. MEDICATIONS: Refer to [facility] FAMILY HISTORY: Non contributory. Unknown PD hx. SOCIAL HISTORY: Denies smoking, drinking, and illicit drug use. REVIEW OF SYSTEMS: Constitutional: No malnutrition, weight loss, cachexia. Head: No traumatic brain or head injury. Skin: No edema, or rash. Ear: No infection, tinnitus. Eyes: No vision loss or color blindness. Nose: No bleeding or purulent discharges. Hearing: Hearing decrease. Neck: No injury. Cardiac: Syncope, HTN, HLD. Pulmonary: No COPD. GI: No GI ulcer, GI bleeding. Urinary/genital: No dysuria, hematuria, incontinence. Endocrinologic: Diabetes Mellitus Skeletomuscular: No muscular atrophy, deformity. Neurological: see HP. Psychiatric: Denies drug use/abuse. Otherwise, not [id number] review of systems. PHYSICAL EXAMINATION: General appearance is in no acute distress. HEENT: Normocephalic and nontraumatic. Eyes, nose, ears, and throat are unremarkable. Neck is supple. No lymphadenopathy. No bruits are heard over the carotid artery. No crepitus. Cardiovascular: S1, S2, regular rate and rhythm. Pulmonary: Clear to auscultation bilaterally. Abdomen: Bowel sounds are positive. Extremities: No rash, lesions. Non pitting edema in LE. No restriction of range of motion NEUROLOGICAL EXAMINATION: Sleepiness but arousable. Oriented to place and person. PERRL. EOMI. CN: no focal findings. Muscle tone: Mildly increased in right UE. Muscle strength: 4+ UE, 3 LE DTR: 2-, 1 LE Plantar reflex: Flexor response bilaterally Gait: not examined in bed. Sensory exam: no abnormal findings. No obvious cerebellar signs elicited. F-T-N test fine. Objective Objective Vital Signs Date Time Temp Pulse Resp B/P Pulse Ox O2 Delivery O2 Flow Rate FiO2 06/09/16 13:58 63 107/61 06/09/16 11:49 98.1 16 93 Room Air 98.1 Intake and Output 06/09/16 07:00 Intake Total 870 ml Balance 870 ml Intake Oral 870 ml # Voids 7 Vitals Signs Vitals VS - Last 72 Hours, by Label Date Time Temp Pulse Resp B/P Pulse Ox O2 Delivery O2 Flow Rate FiO2 06/09/16 13:58 63 107/61 06/09/16 11:49 98.1 67 16 105/69 93 Room Air 98.1 06/09/16 10:40 80 67/42 06/09/16 10:30 67 105/66 06/09/16 08:42 58 114/69 06/09/16 08:00 Room Air 06/09/16 07:00 58 14 114/69 93 Room Air 06/09/16 03:00 97.9 61 20 126/63 97 Room Air 97.9 06/08/16 23:00 96.8 55 18 128/56 98 Room Air 96.8 06/08/16 20:00 Room Air 06/08/16 19:00 97.7 56 18 120/65 92 Room Air 97.7 06/08/16 18:09 68 115/70 06/08/16 15:30 79 100/60 06/08/16 15:30 66 115/70 06/08/16 15:30 68 107/56 06/08/16 13:09 65 106/64 06/08/16 11:00 98.9 65 19 106/64 96 Room Air 98.9 06/08/16 08:00 Room Air 06/08/16 07:00 98.8 60 19 119/59 96 Room Air 98.8 Laboratory Laboratory Laboratory Tests Test 06/08/16 15:35 06/09/16 08:10 Creatine Kinase 57U/L (39-308) Prothrombin Time 24.8SEC (11.7-14.0) Prothromb Time International Ratio 2.4 (0.8-1.1) Medication Medications Current Medications Levothyroxine Sodium (Synthroid) 175 mcg DAILY07 PO Last administered on 06:54; Start 06/09/16 at 07:00 Lorazepam (Ativan) 1 mg 1X ONCE IV Last administered on 06/08/16 18:25; Start 06/08/16 at 18:20; Stop 06/08/16 at 18:21; Status DC Comment Review of Relevant I have reviewed the following items jorge (where applicable) has been applied. ARLENE ZHOU MD Jun 09, 2016 14:33
[2016-06-09 14:34] LABS: ALBUMIN 2.8 g/dL (3.4-5.0); ALBUMIN/GLOBULIN RATIO 0.7 (1.0-1.7); CALCIUM 8.6 mg/dL (8.5-10.1); CREATININE 1.1 mg/dL (0.7-1.3); GFR 65.3; MAGNESIUM 2.2 mg/dL (1.8-2.4); POTASSIUM 4.4 mmol/L (3.5-5.1); TOTAL BILIRUBIN 0.5 mg/dL (0.2-1.0); TOTAL PROTEIN 7.1 g/dL (6.4-8.2)
[2016-06-09] MEDS ORDERED: IOHEXOL 300 MG/ML 75 ML VIAL IV ONE (15:00)
[2016-06-09] MEDS ORDERED: CONTRAST GIVEN MC PRN (15:00)
--- NOTE | 2016-06-09 16:00 | RAD ---
CT of the abdomen and pelvis with contrast, 06/09/2016: History: Abdominal pain, constipation, check IVC filter Multidetector CT imaging was performed following an IV bolus injection of iodinated contrast material. No oral contrast material was administered for this study. Comparison is made to a study from 01/13/2009. There are artifacts projected over the upper abdomen related to the patient's arms. No hepatic abnormality is seen. The gallbladder is unremarkable. The pancreas and spleen show no abnormality. There are several intrarenal calculi on the right. The renal collecting systems are not dilated. No renal mass is evident. There is moderate aortoiliac calcific plaquing. There is no evidence of aneurysm. An inferior vena cava filter is in place centered below the level of the renal veins. It appears to be unchanged. No abdominal or pelvic adenopathy is detected. There is mild diffuse thickening of the bladder ratliff, probably accentuated by its lack of distention. A penile implant is in place. There is a fluid collection in the anterior aspect of the upper pelvis on the right adjacent to the inflation bulb of the implant. It measures 6 x 3.5 cm. This presumably represents a reservoir. An old seroma on a postsurgical basis could give a similar appearance. Stool mixed with radiopaque material is present throughout the colon. The radiopaque material likely represents medication. There is no evidence of obstruction. The small bowel loops are unremarkable. No free air or free fluid is evident in the abdomen or pelvis. There is electronic device in the subcutaneous soft tissues in the right gluteal region posteriorly. An electrode lead, or less likely a catheter, extends through the left sacral foramen into the left presacral region. There is streaky increased density in the presacral fat compatible with inflammation. Moderate degenerative change is noted in the lower lumbar spine. There is mild subcutaneous edema in the flank regions posterolaterally extending into the lateral gluteal regions. IMPRESSION: 1. An inferior vena cava filter is unchanged in position. 2. Nonobstructing intrarenal calculi on the right. 3. Mild presacral edema and/or scarring, perhaps related to a surgical implant extending into this region. 4. Mild diffuse bladder wall thickening. 5. Penile implant in place.
[2016-06-09] MEDS ORDERED: MIDODRINE 2.5 MG TABLET PO PRN (16:30)
[2016-06-09] MEDS: FLUDROCORTISONE 0.1 MG TABLET PO SCH (17:48)
[2016-06-09] MEDS: WARFARIN 5 MG TABLET. PO SCH (17:49)
[2016-06-10] VITALS (7 sets, daily range): BP systolic 102–123; BP diastolic 53–72
--- NOTE | 2016-06-10 05:26 | CONS ---
DATE OF CONSULTATION: 06/09/2016 CHIEF COMPLAINT: Penile/scrotal mass. HISTORY OF PRESENT ILLNESS: This is a 76-year-old male who was admitted to the hospital on 06/03/2016. He is experiencing swelling of the legs, findings consistent with anasarca and congestive heart failure. The patient also has Alzheimer disease, rather advanced and he is not a historian. PAST MEDICAL HISTORY: Includes deep vein thrombosis, chronic swelling, hypertension, syncope, previous pulmonary embolus, advanced dementia, osteoarthritis and diabetes. Urology was asked to see the patient. He was found to have scrotal mass and a mass alongside the penis. PHYSICAL EXAMINATION: GENERAL DESCRIPTION: A 76-year-old male. He has a serious dementia. He cannot give any history. His is not present at the time. ABDOMEN: Soft, nontender. Negative for flank pain bilaterally. No palpable abdominal masses. No suprapubic tenderness. GENITALIA: The penis is palpated. The patient appears to have a penile prosthesis with a cylinder in each corpora, which is deflated. Scrotal examination reveals that the mass on the right scrotum was actually a pump mechanism for his inflatable penile prosthesis. It does not appear to be working. EXTREMITIES: Lower extremities, the patient has edema of the lower extremities. IMPRESSION: Penile/scrotal mass -- nonfunctioning inflatable penile prosthesis. PLAN: No intervention is necessary at this time. SAMANTHA COLLINS DO DR: DEBORAH/[email or web address] JOB#: [id number] / [id number]
[2016-06-10] MEDS: LEVOTHYROXINE 175 MCG TABLET PO SCH (06:39)
[2016-06-10] MEDS: PANTOPRAZOLE 40 MG TABLET. PO SCH (07:30)
[2016-06-10] MEDS: LANSOPRAZOLE 30 MG TAB.RAP.DR FT SCH (08:59)
[2016-06-10] MEDS: CLONAZEPAM 0.5 MG TABLET PO SCH ×2 (09:00→19:42)
[2016-06-10] MEDS: MULTIVITAMIN with MINERAL TABLET. PO SCH (09:00)
[2016-06-10] MEDS: FLUDROCORTISONE 0.1 MG TABLET PO SCH (09:00)
[2016-06-10] MEDS: CITALOPRAM 20 MG TABLET. PO SCH (09:00)
[2016-06-10] MEDS: DOCUSATE SODIUM 100 MG CAPSULE PO SCH (09:00)
[2016-06-10] MEDS: ASPIRIN 81 MG TAB.CHEW PO SCH (09:00)
[2016-06-10] MEDS: CALCIUM CARBONATE 500 MG TABLET PO SCH ×2 (09:00→16:15)
[2016-06-10] MEDS: CHOLECALCIFEROL (VITAMIN D3) 5,000 UNIT CAPSULE PO SCH (09:00)
--- NOTE | 2016-06-10 09:15 | RAD ---
EXAM: Lumbar spine CT without contrast. HISTORY: Pain. TECHNIQUE: Computed tomographic images of the lumbar spine were obtained without contrast. Multiplanar reformatting was performed. COMPARISON: Abdomen and pelvis CT obtained on the same date. FINDINGS: There is mild S-shaped thoracolumbar scoliosis. There is grade 1 anterolisthesis of L4 on L5, measuring 3 mm. There is retrolisthesis of L5 on S1, measuring 4 mm. There is degenerative endplate remodeling at all levels, predominantly L5-S1. There is disc space narrowing, vacuum phenomena and and osteophytosis at this level. This is described in detail below. There is a stimulator lead traversing the left S3-S4 neural foramen to terminate within the left presacral space. There is degenerative subchondral sclerosis and vacuum phenomenon involving the sacroiliac joints. There is an inferior vena cava filter. There is hypodensity inferior to the filter within the inferior vena cava and iliac veins likely due to thrombus. There is calcified atherosclerotic plaque within the aorta and main aortic branch vessels. There is right nephrolithiasis. There is a 5 mm hypodense lesion within the lower pole the right kidney, partially excluded from the [id number] and likely a cyst. There is stranding within the retroperitoneum and a small amount of fluid within the presacral space, better characterized on the abdomen and pelvis CT obtained on the same date. There is urinary bladder wall thickening which may be due to underdistention. At T12-L1, there is a disc bulge and endplate remodeling. There is mild facet arthropathy. There is no stenosis. At L1-L2, there is a disc bulge and left lateral predominant endplate osteophytosis. There is mild bilateral foraminal stenosis. At L2-L3, there is a disc bulge and endplate osteophytosis. There is mild facet arthropathy. There is mild right foraminal stenosis. At L3-L4, there is a disc bulge and endplate osteophytosis. There is mild right and moderate left facet arthropathy. There is mild bilateral foraminal stenosis. There is mild central canal stenosis. At L4-L5, there is a posterior central to left paracentral disc protrusion superimposed on a disc bulge and endplate osteophytosis. There is moderate facet arthropathy. 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 There is grade 1 anterolisthesis. There is moderate right and mild left foraminal stenosis. There is moderate central canal stenosis. At L5-S1, there are bilateral foraminal extraforaminal disc osteophyte complexes superimposed on a disc bulge and endplate osteophytosis. There is retrolisthesis. There is moderate to severe bilateral foraminal stenosis. There is mild central canal stenosis. IMPRESSION: 1. Multilevel degenerative change throughout the lumbar spine, predominantly at the lower lumbar levels. This results in foraminal and central canal stenosis as described above. 2. Lumbar scoliosis, grade 1 anterolisthesis of L4 on L5 and retrolisthesis of L5 on S1. 3. Inferior vena cava filter in expected position. There is hypodensity within the inferior vena cava and iliac veins inferior to this level possibly due to thrombus. 4. Right nephrolithiasis and subcentimeter hypodense lesion within the lower pole the right kidney, possibly a cyst. 5. Stranding within the retroperitoneum and presacral space, of uncertain etiology. PQRS Compliance Statement: One or more of the following individualized dose reduction techniques were utilized for this examination: 1. Automated exposure control 2. Adjustment of the mA and/or kV according to patient size 3. Use of iterative reconstruction technique
--- NOTE | 2016-06-10 12:46 | PDOC ---
PROGRESS NOTES Chief Complaint Chief Complaint A/P 1. Acute DVT: extensive to bilateral LE on Warfarin 2. Bilateral lower extremity swelling, Echo normal EF, due to DVT, 3. HTN: controlled. 5. Hx of DVT/PE: IVC filter , patent. 6. Alzheimer dementia: at baseline 7. Hx of CVA 8. Hypothyroidism, not controlled, TSH 15, 9. Jerky movements 10. Orthostatic Hypotension Plan 1. EEG no acute findings. 2. severe Orthostatic hypotension didn't' respond to fluids, on midodrine. 3. Hold metoprolol 4. Echo results reviewed NO CHF 5. PT/OT 6. either administration of Synthroid or timing of Synthroid should be reconsidered, it should on empty stomach, in AM Repeat TSH in few weeks and follow up with pcp. 7. Hypotension persists, CT abd/pelvis results reviwed, no acute findings noted , will talk to IR on Sunday for further recommendations. , History of Present Illness History of Present Illness no fever no chills low BP Vitals Vitals Vital Signs Date Time Temp Pulse Resp B/P Pulse Ox O2 Delivery O2 Flow Rate FiO2 06/10/16 08:05 Room Air 06/10/16 07:30 97.5 59 20 112/68 96 97.5 Physical Exam General: Alert, Cooperative, No acute distress, Other (not oriented. ) Heart: Regular rate, Normal S1, Normal S2, Other Lungs: Crackles Abdomen: Normal bowel sounds, Soft, Other (unable to assess due to active tension to abdominal muscles during palpation, but notable grimacing) Extremities: Other (2-3+ bilateral LE pitting edema from foot to thigh. scrotal edema, ) Skin: No rashes, No breakdown, No significant lesion, Other (multiple small scab lesions to left thigh) Labs LABS Laboratory Tests Test 06/09/16 14:05 Sodium Level 139mmol/L (136-145) Potassium Level 4.4mmol/L (3.5-5.1) Chloride Level 104mmol/L (98-107) Carbon Dioxide Level 30mmol/L (21-32) Anion Gap 5 (6-14) Blood Urea Nitrogen 12mg/dL (8-26) Creatinine 1.1mg/dL (0.7-1.3) Estimated GFR (Cockcroft-Gault) 65.3 BUN/Creatinine Ratio 11 (6-20) Glucose Level 95mg/dL (70-99) Calcium Level 8.6mg/dL (8.5-10.1) Magnesium Level 2.2mg/dL (1.8-2.4) Total Bilirubin 0.5mg/dL (0.2-1.0) Aspartate Amino Transf (AST/SGOT) 29U/L (15-37) Alanine Aminotransferase (ALT/SGPT) 29U/L (16-63) Alkaline Phosphatase 74U/L (46-116) Total Protein 7.1g/dL (6.4-8.2) Albumin 2.8g/dL (3.4-5.0) Albumin/Globulin Ratio 0.7 (1.0-1.7) Assessment and Plan Assessmemt and Plan Problems Medical Problems: (1) Anasarca Status: Acute (2) Orthostatic hypotension Status: Acute Problems: Comment Review of Relevant I have reviewed the following items jorge (where applicable) has been applied. Labs Laboratory Tests Test 06/08/16 15:35 06/09/16 08:10 06/09/16 14:05 Creatine Kinase 57U/L (39-308) Prothrombin Time 24.8SEC (11.7-14.0) Prothromb Time International Ratio 2.4 (0.8-1.1) Cortisol AM Sample 16.3ug/dL (6.2-19.4) Sodium Level 139mmol/L (136-145) Potassium Level 4.4mmol/L (3.5-5.1) Chloride Level 104mmol/L (98-107) Carbon Dioxide Level 30mmol/L (21-32) Anion Gap 5 (6-14) Blood Urea Nitrogen 12mg/dL (8-26) Creatinine 1.1mg/dL (0.7-1.3) Estimated GFR (Cockcroft-Gault) 65.3 BUN/Creatinine Ratio 11 (6-20) Glucose Level 95mg/dL (70-99) Calcium Level 8.6mg/dL (8.5-10.1) Magnesium Level 2.2mg/dL (1.8-2.4) Total Bilirubin 0.5mg/dL (0.2-1.0) Aspartate Amino Transf (AST/SGOT) 29U/L (15-37) Alanine Aminotransferase (ALT/SGPT) 29U/L (16-63) Alkaline Phosphatase 74U/L (46-116) Total Protein 7.1g/dL (6.4-8.2) Albumin 2.8g/dL (3.4-5.0) Albumin/Globulin Ratio 0.7 (1.0-1.7) Laboratory Tests Test 06/09/16 14:05 Sodium Level 139mmol/L (136-145) Potassium Level 4.4mmol/L (3.5-5.1) Chloride Level 104mmol/L (98-107) Carbon Dioxide Level 30mmol/L (21-32) Anion Gap 5 (6-14) Blood Urea Nitrogen 12mg/dL (8-26) Creatinine 1.1mg/dL (0.7-1.3) Estimated GFR (Cockcroft-Gault) 65.3 BUN/Creatinine Ratio 11 (6-20) Glucose Level 95mg/dL (70-99) Calcium Level 8.6mg/dL (8.5-10.1) Magnesium Level 2.2mg/dL (1.8-2.4) Total Bilirubin 0.5mg/dL (0.2-1.0) Aspartate Amino Transf (AST/SGOT) 29U/L (15-37) Alanine Aminotransferase (ALT/SGPT) 29U/L (16-63) Alkaline Phosphatase 74U/L (46-116) Total Protein 7.1g/dL (6.4-8.2) Albumin 2.8g/dL (3.4-5.0) Albumin/Globulin Ratio 0.7 (1.0-1.7) Medications Current Medications Furosemide (Lasix) 40 mg 1X ONCE IVP Last administered on 06/02/16t 22:13; Start 06/02/16 at 22:00; Stop 06/02/16 at 22:01; Status DC Ondansetron HCl (Zofran) 4 mg PRN Q8HRS PRN IV NAUSEA/VOMITING; Start 06/02/16 at 23:00; Stop 06/03/16 at 22:59; Status DC Acetaminophen (Tylenol) 650 mg PRN Q4HRS PRN PO FEVER; Start 06/02/16 at 23:00 ; Stop 06/03/16 at 22:59; Status DC Furosemide (Lasix) 40 mg 1X ONCE IVP Last administered on 06/03/16 12:23; Start 06/03/16 at 12:00; Stop 06/03/16 at 12:01; Status DC Aspirin (Children'S Aspirin) 81 mg DAILY PO Last administered on 06/10/16 09: 00; Start 06/03/16 at 15:00 Enoxaparin Sodium (Lovenox 100mg Syringe) 100 mg BID SQ Last administered on 21:01; Start 06/03/16 at 14:00; Stop 06/05/16 at 12:51; Status DC Levothyroxine Sodium (Synthroid) 150 mcg DAILYAC PO Last administered on 08:32; Start 06/04/16 at 07:30; Stop 06/08/16 at 11:57; Status DC Warfarin Sodium (Coumadin) 5 mg DAILY PO ; Start 06/04/16 at 09:00; Stop at 09:00; Status DC Citalopram Hydrobromide (Celexa) 40 mg DAILY PO Last administered on 06/10/16 09:00; Start 06/03/16 at 15:00 Non-Formulary Medication 1 tab QHS PO ; Start 06/03/16 at 21:00; Stop 06/03/16 at 21:00; Status DC Pantoprazole Sodium (Protonix) 40 mg DAILYAC PO Last administered on 06/09/16 06:53; Start 06/03/16 at 17:30; Stop 06/10/16 at 08:03; Status DC Docusate Sodium (Colace) 100 mg DAILY PO Last administered on 06/10/16 09:00; Start 06/03/16 at 15:00 Multivitamins/ Calcium (Thera M Plus) 1 tab DAILY PO Last administered on 09:00; Start 06/03/16 at 15:00 Warfarin Sodium (Coumadin Per Pharmacy) 1 each PRN DAILY PRN MC SEE COMMENTS Last administered on 06/09/16 15:28; Start 06/03/16 at 15:00 Warfarin Sodium (Coumadin) 6 mg 1X WARF ONCE PO Last administered on 17:25; Start 06/03/16 at 16:00; Stop 06/03/16 at 16:01; Status DC Warfarin Sodium (Coumadin) 5 mg DAILY16 PO Last administered on 06/09/16 17:49 ; Start 06/04/16 at 18:51 Info (Anti-Coagulation Monitoring By Pharmacy) 1 each PRN DAILY PRN MC SEE COMMENTS; Start 06/04/16 at 19:00; Stop 06/05/16 at 12:51; Status DC Clonazepam (Klonopin) 0.5 mg BID PO Last administered on 06/10/16 09:00; Start 06/06/16 at 15:15 Metoprolol Succinate (Toprol Xl) 25 mg DAILY PO ; Start 06/06/16 at 18:00; Stop 06/07/16 at 16:24; Status DC Polyethylene Glycol (miraLAX PACKET) 17 gm 1X ONCE PO Last administered on 08:32; Start 06/08/16 at 08:00; Stop 06/08/16 at 08:04; Status DC Vitamin D (Vitamin D3) 5,000 unit DAILY PO Last administered on 06/10/16 09:00 ; Start 06/08/16 at 11:00 Calcium Carbonate/ Glycine (Oscal) 500 mg BIDWMEALS PO Last administered on 09:00; Start 06/08/16 at 11:30 Midodrine 2.5 mg 2.5 mg [id number] PO Last administered on 06/09/16 13:58; Start 06/08/16 at 13:00; Stop 06/09/16 at 16:19; Status DC Sodium Chloride (Iv Sodium Chloride 0.9% 500ml Bag) 500 ml @ 500 mls/hr 1X ONCE IV Last administered on 06/08/16 11:59; Start 06/08/16 at 12:00; Stop at 12:59; Status DC Levothyroxine Sodium (Synthroid) 175 mcg DAILY07 PO Last administered on 06:39; Start 06/09/16 at 07:00 Lorazepam (Ativan) 1 mg 1X ONCE IV Last administered on 06/08/16 18:25; Start 06/08/16 at 18:20; Stop 06/08/16 at 18:21; Status DC Iohexol (Omnipaque 300 Mg/ml) 75 ml 1X ONCE IV Last administered on 06/09/16 15:22; Start 06/09/16 at 15:00; Stop 06/09/16 at 15:01; Status DC Info (Do NOT chart on this entry -- for MONITORING) 1 each PRN DAILY PRN MC SEE COMMENTS; Start 06/09/16 at 15:00; Stop 06/11/16 at 14:59 Midodrine (Proamatine) 2.5 mg [id number] PRN PO ELEVATED BP, SEE COMMENTS; Start at 16:30 Fludrocortisone Acetate (Florinef) 0.1 mg DAILY PO Last administered on 09:00; Start 06/09/16 at 17:00 Lansoprazole (Prevacid) 30 mg DAILYAC FT Last administered on 06/10/16 08:59; Start 06/10/16 at 08:30 Active Scripts Active Klonopin (Clonazepam) 0.5 Mg Tablet 1 Tab PO BID Reported Levothyroxine Sodium 150 Mcg Tablet 150 Mcg PO DAILY Warfarin Sodium 5 Mg Tablet 5 Mg PO DAILY Citalopram Hbr (Citalopram Hydrobromide) 40 Mg Tablet 40 Mg PO DAILY Stool Softener (Docusate Sodium) 50 Mg Capsule Unknown Dose PO Daily Vitamin (Multivitamin) 1 Each Tablet 1 Each PO Melatonin 3 Mg Tablet 1 Tab PO QHS Aspirin 81 Mg Tab.chew 1 Tab PO DAILY Simvastatin 40 Mg Tablet 1 Tab PO QHS Omeprazole 40 Mg Capsule.dr Thoams Cap PO DAILY Vitals/I & O Vital Sign - Last 24 Hours 06/09/16 06/09/16 06/09/16 06/09/16 13:58 19:00 20:00 23:00 Temp 97.8 98.1 97.8 98.1 Pulse 63 60 52 Resp 20 20 B/P 107/61 123/71 94/59 Pulse Ox 90 93 O2 Delivery Room Air Room Air Room Air 06/10/16 06/10/16 06/10/16 03:00 07:30 08:05 Temp 98.1 97.5 98.1 97.5 Pulse 63 59 Resp 20 20 B/P 115/56 112/68 Pulse Ox 99 96 O2 Delivery Room Air Room Air Room Air Intake and Output 06/09/16 06/09/16 06/10/16 15:00 23:00 07:00 Intake Total 120 ml 300 ml Balance 120 ml 300 ml LEONOR ALBARRAN MD Jun 10, 2016 12:46
[2016-06-10] MEDS: WARFARIN 5 MG TABLET. PO SCH (16:15)
[2016-06-11 03:00] VITALS: BP 115/72
[2016-06-11] MEDS: LEVOTHYROXINE 175 MCG TABLET PO SCH (05:33)
[2016-06-11 08:00] VITALS: BP 114/64
[2016-06-11] MEDS: CITALOPRAM 20 MG TABLET. PO SCH (08:13)
[2016-06-11] MEDS: MULTIVITAMIN with MINERAL TABLET. PO SCH (08:13)
[2016-06-11] MEDS: FLUDROCORTISONE 0.1 MG TABLET PO SCH (08:13)
[2016-06-11] MEDS: DOCUSATE SODIUM 100 MG CAPSULE PO SCH (08:13)
[2016-06-11] MEDS: CALCIUM CARBONATE 500 MG TABLET PO SCH ×2 (08:13→16:48)
[2016-06-11] MEDS: CHOLECALCIFEROL (VITAMIN D3) 5,000 UNIT CAPSULE PO SCH (08:13)
[2016-06-11] MEDS: ASPIRIN 81 MG TAB.CHEW PO SCH (08:13)
[2016-06-11] MEDS: LANSOPRAZOLE 30 MG TAB.RAP.DR FT SCH (08:14)
[2016-06-11] MEDS: CLONAZEPAM 0.5 MG TABLET PO SCH ×2 (08:14→20:35)
[2016-06-11 10:10] VITALS: BP 126/72
[2016-06-11] MEDS ORDERED: POLYETHYLENE GLYCOL 3350 17 GM PACKET. PO PRN (13:30)
[2016-06-11 15:15] VITALS: BP 102/51
--- NOTE | 2016-06-11 16:33 | PDOC ---
PROGRESS NOTES Chief Complaint Chief Complaint A/P 1. Acute DVT: extensive to bilateral LE on Warfarin 2. Bilateral lower extremity swelling, Echo normal EF, due to DVT, 3. HTN: controlled. 5. Hx of DVT/PE: IVC filter , patent. 6. Alzheimer dementia: at baseline 7. Hx of CVA 8. Hypothyroidism, not controlled, TSH 15, 9. Jerky movements 10. Orthostatic Hypotension Plan 1. EEG no acute findings. 2. severe Orthostatic hypotension on midodrine and Florinef 3. Hold metoprolol 4. Echo results reviewed NO CHF 5. PT/OT 6. CT abd/pelvis results reviwed, no acute findings noted, will talk to IR on Sunday for further recommendations, IVC filter was placed on 2008, any possible interventions family at bed side, all questions answered, , History of Present Illness History of Present Illness no fever no chills low BP Vitals Vitals Vital Signs Date Time Temp Pulse Resp B/P Pulse Ox O2 Delivery O2 Flow Rate FiO2 06/11/16 15:15 97.9 76 20 102/51 98 Room Air 97.9 Physical Exam General: Alert, Cooperative, No acute distress, Other (not oriented. ) Heart: Regular rate, Normal S1, Normal S2, Other Lungs: Crackles Abdomen: Normal bowel sounds, Soft, Other (unable to assess due to active tension to abdominal muscles during palpation, but notable grimacing) Extremities: Other (2-3+ bilateral LE pitting edema from foot to thigh. scrotal edema, ) Skin: No rashes, No breakdown, No significant lesion, Other (multiple small scab lesions to left thigh) Assessment and Plan Assessmemt and Plan Problems Medical Problems: (1) Anasarca Status: Acute (2) Orthostatic hypotension Status: Acute Problems: Comment Review of Relevant I have reviewed the following items jorge (where applicable) has been applied. Medications Current Medications Furosemide (Lasix) 40 mg 1X ONCE IVP Last administered on 06/02/16t 22:13; Start 06/02/16 at 22:00; Stop 06/02/16 at 22:01; Status DC Ondansetron HCl (Zofran) 4 mg PRN Q8HRS PRN IV NAUSEA/VOMITING; Start 06/02/16 at 23:00; Stop 06/03/16 at 22:59; Status DC Acetaminophen (Tylenol) 650 mg PRN Q4HRS PRN PO FEVER; Start 06/02/16 at 23:00 ; Stop 06/03/16 at 22:59; Status DC Furosemide (Lasix) 40 mg 1X ONCE IVP Last administered on 06/03/16 12:23; Start 06/03/16 at 12:00; Stop 06/03/16 at 12:01; Status DC Aspirin (Children'S Aspirin) 81 mg DAILY PO Last administered on 06/11/16 08: 13; Start 06/03/16 at 15:00 Enoxaparin Sodium (Lovenox 100mg Syringe) 100 mg BID SQ Last administered on 21:01; Start 06/03/16 at 14:00; Stop 06/05/16 at 12:51; Status DC Levothyroxine Sodium (Synthroid) 150 mcg DAILYAC PO Last administered on 08:32; Start 06/04/16 at 07:30; Stop 06/08/16 at 11:57; Status DC Warfarin Sodium (Coumadin) 5 mg DAILY PO ; Start 06/04/16 at 09:00; Stop at 09:00; Status DC Citalopram Hydrobromide (Celexa) 40 mg DAILY PO Last administered on 06/11/16 08:13; Start 06/03/16 at 15:00 Non-Formulary Medication 1 tab QHS PO ; Start 06/03/16 at 21:00; Stop 06/03/16 at 21:00; Status DC Pantoprazole Sodium (Protonix) 40 mg DAILYAC PO Last administered on 06/09/16 06:53; Start 06/03/16 at 17:30; Stop 06/10/16 at 08:03; Status DC Docusate Sodium (Colace) 100 mg DAILY PO Last administered on 06/11/16 08:13; Start 06/03/16 at 15:00 Multivitamins/ Calcium (Thera M Plus) 1 tab DAILY PO Last administered on 08:13; Start 06/03/16 at 15:00 Warfarin Sodium (Coumadin Per Pharmacy) 1 each PRN DAILY PRN MC SEE COMMENTS Last administered on 06/09/16 15:28; Start 06/03/16 at 15:00 Warfarin Sodium (Coumadin) 6 mg 1X WARF ONCE PO Last administered on 17:25; Start 06/03/16 at 16:00; Stop 06/03/16 at 16:01; Status DC Warfarin Sodium (Coumadin) 5 mg DAILY16 PO Last administered on 06/10/16 16:15 ; Start 06/04/16 at 18:51 Info (Anti-Coagulation Monitoring By Pharmacy) 1 each PRN DAILY PRN MC SEE COMMENTS; Start 06/04/16 at 19:00; Stop 06/05/16 at 12:51; Status DC Clonazepam (Klonopin) 0.5 mg BID PO Last administered on 06/11/16 08:14; Start 06/06/16 at 15:15 Metoprolol Succinate (Toprol Xl) 25 mg DAILY PO ; Start 06/06/16 at 18:00; Stop 06/07/16 at 16:24; Status DC Polyethylene Glycol (miraLAX PACKET) 17 gm 1X ONCE PO Last administered on 08:32; Start 06/08/16 at 08:00; Stop 06/08/16 at 08:04; Status DC Vitamin D (Vitamin D3) 5,000 unit DAILY PO Last administered on 06/11/16 08:13 ; Start 06/08/16 at 11:00 Calcium Carbonate/ Glycine (Oscal) 500 mg BIDWMEALS PO Last administered on 08:13; Start 06/08/16 at 11:30 Midodrine 2.5 mg 2.5 mg [id number] PO Last administered on 06/09/16 13:58; Start 06/08/16 at 13:00; Stop 06/09/16 at 16:19; Status DC Sodium Chloride (Iv Sodium Chloride 0.9% 500ml Bag) 500 ml @ 500 mls/hr 1X ONCE IV Last administered on 06/08/16 11:59; Start 06/08/16 at 12:00; Stop at 12:59; Status DC Levothyroxine Sodium (Synthroid) 175 mcg DAILY07 PO Last administered on 05:33; Start 06/09/16 at 07:00 Lorazepam (Ativan) 1 mg 1X ONCE IV Last administered on 06/08/16 18:25; Start 06/08/16 at 18:20; Stop 06/08/16 at 18:21; Status DC Iohexol (Omnipaque 300 Mg/ml) 75 ml 1X ONCE IV Last administered on 06/09/16 15:22; Start 06/09/16 at 15:00; Stop 06/09/16 at 15:01; Status DC Info (Do NOT chart on this entry -- for MONITORING) 1 each PRN DAILY PRN MC SEE COMMENTS; Start 06/09/16 at 15:00; Stop 06/11/16 at 14:59; Status DC Midodrine (Proamatine) 2.5 mg [id number] PRN PO ELEVATED BP, SEE COMMENTS; Start at 16:30 Fludrocortisone Acetate (Florinef) 0.1 mg DAILY PO Last administered on 08:13; Start 06/09/16 at 17:00 Lansoprazole (Prevacid) 30 mg DAILYAC FT Last administered on 06/11/16 08:14; Start 06/10/16 at 08:30 Polyethylene Glycol (miraLAX PACKET) 17 gm PRN DAILY PRN PO CONSTIPATION Last administered on 06/11/16 13:47; Start 06/11/16 at 13:30 Active Scripts Active Klonopin (Clonazepam) 0.5 Mg Tablet 1 Tab PO BID Reported Levothyroxine Sodium 150 Mcg Tablet 150 Mcg PO DAILY Warfarin Sodium 5 Mg Tablet 5 Mg PO DAILY Citalopram Hbr (Citalopram Hydrobromide) 40 Mg Tablet 40 Mg PO DAILY Stool Softener (Docusate Sodium) 50 Mg Capsule Unknown Dose PO Daily Vitamin (Multivitamin) 1 Each Tablet 1 Each PO Melatonin 3 Mg Tablet 1 Tab PO QHS Aspirin 81 Mg Tab.chew 1 Tab PO DAILY Simvastatin 40 Mg Tablet 1 Tab PO QHS Omeprazole 40 Mg Capsule. 1 Cap PO DAILY Vitals/I & O Vital Sign - Last 24 Hours 06/10/16 06/10/16 06/10/16 06/11/16 19:00 19:15 23:00 03:00 Temp 100.0 99.9 97.9 100.0 99.9 97.9 Pulse 75 64 62 Resp 18 20 24 B/P 102/53 114/66 115/72 Pulse Ox 96 95 95 O2 Delivery Room Air Room Air Room Air Room Air 06/11/16 06/11/16 06/11/16 06/11/16 07:30 08:00 10:10 15:15 Temp 97.7 97.7 97.9 97.7 97.7 97.9 Pulse 61 63 76 Resp 20 20 20 B/P 114/64 126/72 102/51 Pulse Ox 99 98 98 O2 Delivery Room Air Room Air Room Air Room Air Intake and Output 06/10/16 06/10/16 06/11/16 15:00 23:00 07:00 Intake Total 60 ml 100 ml Balance 60 ml 100 ml LEONOR ALBARRAN MD Jun 11, 2016 16:33
[2016-06-11] MEDS: WARFARIN 5 MG TABLET. PO SCH (16:48)
--- NOTE | 2016-06-11 18:45 | PDOC ---
PROGRESS NOTES Assessment Problems Medical Problems: (1) Anasarca Status: Acute (2) Orthostatic hypotension Status: Acute Problems: Plan Abnormal jerking movements. Orthostatic hypotension. LE edema. LE weakness. HTN HLD RECOMMENDATIONS/PLAN: L-spine MRI w/wo contrast.could not be done due to spine stimulator Treat medical diseases. Vit D and Ca++ supplement, further management per PCP. OT/PT HCT on 06/06: No acute findings. EEG on 06/07/16: Posterior dominant rhythm is slow for age. IMPRESSION: 1. Multilevel degenerative change throughout the lumbar spine, predominantly at the lower lumbar levels. This results in foraminal and central canal stenosis as described above. 2. Lumbar scoliosis, grade 1 anterolisthesis of L4 on L5 and retrolisthesis of L5 on S1. 3. Inferior vena cava filter in expected position. There is hypodensity within the inferior vena cava and iliac veins inferior to this level possibly due to thrombus. 4. Right nephrolithiasis and subcentimeter hypodense lesion within the lower pole the right kidney, possibly a cyst. 5. Stranding within the retroperitoneum and presacral space, of uncertain etiology. Subjective no acute events Objective Vital Signs Date Time Temp Pulse Resp B/P Pulse Ox O2 Delivery O2 Flow Rate FiO2 06/11/16 15:15 97.9 76 20 102/51 98 Room Air 97.9 Intake and Output 06/11/16 07:00 Intake Total 160 ml Balance 160 ml Intake Oral 160 ml # Voids 3 PHYSICAL EXAM Oriented to place and person. PERRL. EOMI. CN: no focal findings. Muscle strength: 4+ UE, 3 LE DTR:1-2 Plantar reflex: Flexor response bilaterally Gait: not examined in bed. Sensory exam: no abnormal findings. No obvious cerebellar signs elicited. F-T-N test fine. Review of Relevant I have reviewed the following items jorge (where applicable) has been applied. Medications Current Medications Furosemide (Lasix) 40 mg 1X ONCE IVP Last administered on 06/02/16t 22:13; Start 06/02/16 at 22:00; Stop 06/02/16 at 22:01; Status DC Ondansetron HCl (Zofran) 4 mg PRN Q8HRS PRN IV NAUSEA/VOMITING; Start 06/02/16 at 23:00; Stop 06/03/16 at 22:59; Status DC Acetaminophen (Tylenol) 650 mg PRN Q4HRS PRN PO FEVER; Start 06/02/16 at 23:00 ; Stop 06/03/16 at 22:59; Status DC Furosemide (Lasix) 40 mg 1X ONCE IVP Last administered on 06/03/16 12:23; Start 06/03/16 at 12:00; Stop 06/03/16 at 12:01; Status DC Aspirin (Children'S Aspirin) 81 mg DAILY PO Last administered on 06/11/16 08: 13; Start 06/03/16 at 15:00 Enoxaparin Sodium (Lovenox 100mg Syringe) 100 mg BID SQ Last administered on 21:01; Start 06/03/16 at 14:00; Stop 06/05/16 at 12:51; Status DC Levothyroxine Sodium (Synthroid) 150 mcg DAILYAC PO Last administered on 08:32; Start 06/04/16 at 07:30; Stop 06/08/16 at 11:57; Status DC Warfarin Sodium (Coumadin) 5 mg DAILY PO ; Start 06/04/16 at 09:00; Stop at 09:00; Status DC Citalopram Hydrobromide (Celexa) 40 mg DAILY PO Last administered on 06/11/16 08:13; Start 06/03/16 at 15:00 Non-Formulary Medication 1 tab QHS PO ; Start 06/03/16 at 21:00; Stop 06/03/16 at 21:00; Status DC Pantoprazole Sodium (Protonix) 40 mg DAILYAC PO Last administered on 06/09/16 06:53; Start 06/03/16 at 17:30; Stop 06/10/16 at 08:03; Status DC Docusate Sodium (Colace) 100 mg DAILY PO Last administered on 06/11/16 08:13; Start 06/03/16 at 15:00 Multivitamins/ Calcium (Thera M Plus) 1 tab DAILY PO Last administered on 08:13; Start 06/03/16 at 15:00 Warfarin Sodium (Coumadin Per Pharmacy) 1 each PRN DAILY PRN MC SEE COMMENTS Last administered on 06/09/16 15:28; Start 06/03/16 at 15:00 Warfarin Sodium (Coumadin) 6 mg 1X WARF ONCE PO Last administered on 17:25; Start 06/03/16 at 16:00; Stop 06/03/16 at 16:01; Status DC Warfarin Sodium (Coumadin) 5 mg DAILY16 PO Last administered on 06/11/16 16:48 ; Start 06/04/16 at 18:51 Info (Anti-Coagulation Monitoring By Pharmacy) 1 each PRN DAILY PRN MC SEE COMMENTS; Start 06/04/16 at 19:00; Stop 06/05/16 at 12:51; Status DC Clonazepam (Klonopin) 0.5 mg BID PO Last administered on 06/11/16 08:14; Start 06/06/16 at 15:15 Metoprolol Succinate (Toprol Xl) 25 mg DAILY PO ; Start 06/06/16 at 18:00; Stop 06/07/16 at 16:24; Status DC Polyethylene Glycol (miraLAX PACKET) 17 gm 1X ONCE PO Last administered on 08:32; Start 06/08/16 at 08:00; Stop 06/08/16 at 08:04; Status DC Vitamin D (Vitamin D3) 5,000 unit DAILY PO Last administered on 06/11/16 08:13 ; Start 06/08/16 at 11:00 Calcium Carbonate/ Glycine (Oscal) 500 mg BIDWMEALS PO Last administered on 16:48; Start 06/08/16 at 11:30 Midodrine 2.5 mg 2.5 mg [id number] PO Last administered on 06/09/16 13:58; Start 06/08/16 at 13:00; Stop 06/09/16 at 16:19; Status DC Sodium Chloride (Iv Sodium Chloride 0.9% 500ml Bag) 500 ml @ 500 mls/hr 1X ONCE IV Last administered on 06/08/16 11:59; Start 06/08/16 at 12:00; Stop at 12:59; Status DC Levothyroxine Sodium (Synthroid) 175 mcg DAILY07 PO Last administered on 05:33; Start 06/09/16 at 07:00 Lorazepam (Ativan) 1 mg 1X ONCE IV Last administered on 06/08/16 18:25; Start 06/08/16 at 18:20; Stop 06/08/16 at 18:21; Status DC Iohexol (Omnipaque 300 Mg/ml) 75 ml 1X ONCE IV Last administered on 06/09/16 15:22; Start 06/09/16 at 15:00; Stop 06/09/16 at 15:01; Status DC Info (Do NOT chart on this entry -- for MONITORING) 1 each PRN DAILY PRN MC SEE COMMENTS; Start 06/09/16 at 15:00; Stop 06/11/16 at 14:59; Status DC Midodrine (Proamatine) 2.5 mg [id number] PRN PO ELEVATED BP, SEE COMMENTS; Start at 16:30 Fludrocortisone Acetate (Florinef) 0.1 mg DAILY PO Last administered on 08:13; Start 06/09/16 at 17:00 Lansoprazole (Prevacid) 30 mg DAILYAC FT Last administered on 06/11/16 08:14; Start 06/10/16 at 08:30 Polyethylene Glycol (miraLAX PACKET) 17 gm PRN DAILY PRN PO CONSTIPATION Last administered on 06/11/16 13:47; Start 06/11/16 at 13:30 Active Scripts Active Klonopin (Clonazepam) 0.5 Mg Tablet 1 Tab PO BID Reported Levothyroxine Sodium 150 Mcg Tablet 150 Mcg PO DAILY Warfarin Sodium 5 Mg Tablet 5 Mg PO DAILY Citalopram Hbr (Citalopram Hydrobromide) 40 Mg Tablet 40 Mg PO DAILY Stool Softener (Docusate Sodium) 50 Mg Capsule Unknown Dose PO Daily Vitamin (Multivitamin) 1 Each Tablet 1 Each PO Melatonin 3 Mg Tablet 1 Tab PO QHS Aspirin 81 Mg Tab.chew 1 Tab PO DAILY Simvastatin 40 Mg Tablet 1 Tab PO QHS Omeprazole 40 Mg Capsule. 1 Cap PO DAILY Vitals/I & O Vital Sign - Last 24 Hours 06/10/16 06/10/16 06/10/16 06/11/16 19:00 19:15 23:00 03:00 Temp 100.0 99.9 97.9 100.0 99.9 97.9 Pulse 75 64 62 Resp 18 20 24 B/P 102/53 114/66 115/72 Pulse Ox 96 95 95 O2 Delivery Room Air Room Air Room Air Room Air 06/11/16 06/11/16 06/11/16 06/11/16 07:30 08:00 10:10 15:15 Temp 97.7 97.7 97.9 97.7 97.7 97.9 Pulse 61 63 76 Resp 20 20 20 B/P 114/64 126/72 102/51 Pulse Ox 99 98 98 O2 Delivery Room Air Room Air Room Air Room Air Intake and Output 06/10/16 06/10/16 06/11/16 15:00 23:00 07:00 Intake Total 60 ml 100 ml Balance 60 ml 100 ml KIKI GORDILLO MD Jun 11, 2016 18:45
[2016-06-11 19:00] VITALS: BP 127/63
[2016-06-11 23:00] VITALS: BP 122/64
[2016-06-12 03:00] VITALS: BP 129/52
[2016-06-12] MEDS: LEVOTHYROXINE 175 MCG TABLET PO SCH (04:56)
[2016-06-12 07:00] VITALS: BP 133/68
[2016-06-12 11:45] VITALS: BP 107/62
--- NOTE | 2016-06-12 14:27 | PDOC ---
PROGRESS NOTES Chief Complaint Chief Complaint A/P 1. Acute DVT: extensive to bilateral LE on Warfarin 2. Bilateral lower extremity swelling, Echo normal EF, due to DVT, 3. HTN: controlled. 5. Hx of DVT/PE: IVC filter , patent. 6. Alzheimer dementia: at baseline 7. Hx of CVA 8. Hypothyroidism, not controlled, TSH 15, 9. Jerky movements 10. Orthostatic Hypotension Plan 1. EEG no acute findings. 2. severe Orthostatic hypotension on midodrine and Florinef 3. Hold metoprolol, IVF today, add midodrine 4. Echo results reviewed NO CHF 5. PT/OT 6. CT abd/pelvis results reviwed talked to SW again, recommend SNF, but seems family just wanna go home family at bed side, all questions answered, , History of Present Illness History of Present Illness no fever no chills severe orthostatic hypotension very demented Vitals Vitals Vital Signs Date Time Temp Pulse Resp B/P Pulse Ox O2 Delivery O2 Flow Rate FiO2 06/12/16 11:45 98.1 65 20 107/62 98 Room Air 98.1 Physical Exam Physical Exam not answer questions or follow commands General: Alert, Cooperative, No acute distress, Other (not oriented. ) Heart: Regular rate, Normal S1, Normal S2, Other Lungs: Crackles Abdomen: Normal bowel sounds, Soft, Other (unable to assess due to active tension to abdominal muscles during palpation, but notable grimacing) Extremities: Other (2-3+ bilateral LE pitting edema from foot to thigh. scrotal edema, ) Skin: No rashes, No breakdown, No significant lesion, Other (multiple small scab lesions to left thigh) Review of Systems Review of Systems no fever, chills, sob or chest pain Assessment and Plan Assessmemt and Plan Problems Medical Problems: (1) Anasarca Status: Acute (2) Orthostatic hypotension Status: Acute Problems: Comment Review of Relevant I have reviewed the following items jorge (where applicable) has been applied. Medications Current Medications Furosemide (Lasix) 40 mg 1X ONCE IVP Last administered on 06/02/16t 22:13; Start 06/02/16 at 22:00; Stop 06/02/16 at 22:01; Status DC Ondansetron HCl (Zofran) 4 mg PRN Q8HRS PRN IV NAUSEA/VOMITING; Start 06/02/16 at 23:00; Stop 06/03/16 at 22:59; Status DC Acetaminophen (Tylenol) 650 mg PRN Q4HRS PRN PO FEVER; Start 06/02/16 at 23:00 ; Stop 06/03/16 at 22:59; Status DC Furosemide (Lasix) 40 mg 1X ONCE IVP Last administered on 06/03/16 12:23; Start 06/03/16 at 12:00; Stop 06/03/16 at 12:01; Status DC Aspirin (Children'S Aspirin) 81 mg DAILY PO Last administered on 06/11/16 08: 13; Start 06/03/16 at 15:00 Enoxaparin Sodium (Lovenox 100mg Syringe) 100 mg BID SQ Last administered on 21:01; Start 06/03/16 at 14:00; Stop 06/05/16 at 12:51; Status DC Levothyroxine Sodium (Synthroid) 150 mcg DAILYAC PO Last administered on 08:32; Start 06/04/16 at 07:30; Stop 06/08/16 at 11:57; Status DC Warfarin Sodium (Coumadin) 5 mg DAILY PO ; Start 06/04/16 at 09:00; Stop at 09:00; Status DC Citalopram Hydrobromide (Celexa) 40 mg DAILY PO Last administered on 06/11/16 08:13; Start 06/03/16 at 15:00 Non-Formulary Medication 1 tab QHS PO ; Start 06/03/16 at 21:00; Stop 06/03/16 at 21:00; Status DC Pantoprazole Sodium (Protonix) 40 mg DAILYAC PO Last administered on 06/09/16 06:53; Start 06/03/16 at 17:30; Stop 06/10/16 at 08:03; Status DC Docusate Sodium (Colace) 100 mg DAILY PO Last administered on 06/11/16 08:13; Start 06/03/16 at 15:00 Multivitamins/ Calcium (Thera M Plus) 1 tab DAILY PO Last administered on 08:13; Start 06/03/16 at 15:00 Warfarin Sodium (Coumadin Per Pharmacy) 1 each PRN DAILY PRN MC SEE COMMENTS Last administered on 06/09/16 15:28; Start 06/03/16 at 15:00 Warfarin Sodium (Coumadin) 6 mg 1X WARF ONCE PO Last administered on 17:25; Start 06/03/16 at 16:00; Stop 06/03/16 at 16:01; Status DC Warfarin Sodium (Coumadin) 5 mg DAILY16 PO Last administered on 06/11/16 16:48 ; Start 06/04/16 at 18:51 Info (Anti-Coagulation Monitoring By Pharmacy) 1 each PRN DAILY PRN MC SEE COMMENTS; Start 06/04/16 at 19:00; Stop 06/05/16 at 12:51; Status DC Clonazepam (Klonopin) 0.5 mg BID PO Last administered on 06/11/16 20:35; Start 06/06/16 at 15:15 Metoprolol Succinate (Toprol Xl) 25 mg DAILY PO ; Start 06/06/16 at 18:00; Stop 06/07/16 at 16:24; Status DC Polyethylene Glycol (miraLAX PACKET) 17 gm 1X ONCE PO Last administered on 08:32; Start 06/08/16 at 08:00; Stop 06/08/16 at 08:04; Status DC Vitamin D (Vitamin D3) 5,000 unit DAILY PO Last administered on 06/11/16 08:13 ; Start 06/08/16 at 11:00 Calcium Carbonate/ Glycine (Oscal) 500 mg BIDWMEALS PO Last administered on 16:48; Start 06/08/16 at 11:30 Midodrine 2.5 mg 2.5 mg [id number] PO Last administered on 06/09/16 13:58; Start 06/08/16 at 13:00; Stop 06/09/16 at 16:19; Status DC Sodium Chloride (Iv Sodium Chloride 0.9% 500ml Bag) 500 ml @ 500 mls/hr 1X ONCE IV Last administered on 06/08/16 11:59; Start 06/08/16 at 12:00; Stop at 12:59; Status DC Levothyroxine Sodium (Synthroid) 175 mcg DAILY07 PO Last administered on 04:56; Start 06/09/16 at 07:00 Lorazepam (Ativan) 1 mg 1X ONCE IV Last administered on 06/08/16 18:25; Start 06/08/16 at 18:20; Stop 06/08/16 at 18:21; Status DC Iohexol (Omnipaque 300 Mg/ml) 75 ml 1X ONCE IV Last administered on 06/09/16 15:22; Start 06/09/16 at 15:00; Stop 06/09/16 at 15:01; Status DC Info (Do NOT chart on this entry -- for MONITORING) 1 each PRN DAILY PRN MC SEE COMMENTS; Start 06/09/16 at 15:00; Stop 06/11/16 at 14:59; Status DC Midodrine (Proamatine) 2.5 mg [id number] PRN PO ELEVATED BP, SEE COMMENTS; Start at 16:30 Fludrocortisone Acetate (Florinef) 0.1 mg DAILY PO Last administered on 08:13; Start 06/09/16 at 17:00 Lansoprazole (Prevacid) 30 mg DAILYAC FT Last administered on 06/11/16 08:14; Start 06/10/16 at 08:30 Polyethylene Glycol (miraLAX PACKET) 17 gm PRN DAILY PRN PO CONSTIPATION Last administered on 06/11/16 13:47; Start 06/11/16 at 13:30 Active Scripts Active Klonopin (Clonazepam) 0.5 Mg Tablet 1 Tab PO BID Reported Levothyroxine Sodium 150 Mcg Tablet 150 Mcg PO DAILY Warfarin Sodium 5 Mg Tablet 5 Mg PO DAILY Citalopram Hbr (Citalopram Hydrobromide) 40 Mg Tablet 40 Mg PO DAILY Stool Softener (Docusate Sodium) 50 Mg Capsule Unknown Dose PO Daily Vitamin (Multivitamin) 1 Each Tablet 1 Each PO Melatonin 3 Mg Tablet 1 Tab PO QHS Aspirin 81 Mg Tab.chew 1 Tab PO DAILY Simvastatin 40 Mg Tablet 1 Tab PO QHS Omeprazole 40 Mg Capsule. 1 Cap PO DAILY Vitals/I & O Vital Sign - Last 24 Hours 06/11/16 06/11/16 06/11/16 06/11/16 15:15 19:00 19:20 23:00 Temp 97.9 97.7 97.7 97.9 97.7 97.7 Pulse 76 72 69 Resp 20 22 22 B/P 102/51 127/63 122/64 Pulse Ox 98 96 96 O2 Delivery Room Air Room Air Room Air Room Air 06/12/16 06/12/16 06/12/16 03:00 07:00 11:45 Temp 97.5 98.1 98.1 97.5 98.1 98.1 Pulse 62 60 65 Resp 20 20 20 B/P 129/52 133/68 107/62 Pulse Ox 96 97 98 O2 Delivery Room Air Room Air Room Air Intake and Output 06/11/16 06/11/16 06/12/16 15:00 23:00 07:00 Intake Total 60 ml 0 ml Balance 60 ml 0 ml GREGORY ZUNIGA MD Jun 12, 2016 14:27
[2016-06-12] MEDS ORDERED: IV NORMAL SALINE 1000ML BAG 1,000 ML IV ONE (14:30)
[2016-06-12] MEDS: CALCIUM CARBONATE 500 MG TABLET PO SCH ×2 (14:47→17:00)
[2016-06-12] MEDS: CHOLECALCIFEROL (VITAMIN D3) 5,000 UNIT CAPSULE PO SCH (14:47)
[2016-06-12] MEDS: DOCUSATE SODIUM 100 MG CAPSULE PO SCH (14:48)
[2016-06-12] MEDS: CITALOPRAM 20 MG TABLET. PO SCH (14:48)
[2016-06-12] MEDS: FLUDROCORTISONE 0.1 MG TABLET PO SCH (14:48)
[2016-06-12] MEDS: CLONAZEPAM 0.5 MG TABLET PO SCH ×2 (14:49→20:43)
[2016-06-12] MEDS: ASPIRIN 81 MG TAB.CHEW PO SCH (14:49)
[2016-06-12] MEDS: MULTIVITAMIN with MINERAL TABLET. PO SCH (14:49)
[2016-06-12] MEDS: LANSOPRAZOLE 30 MG TAB.RAP.DR FT SCH (14:49)
[2016-06-12 15:09] VITALS: BP 102/61
[2016-06-12] MEDS: WARFARIN 5 MG TABLET. PO SCH (15:10)
--- NOTE | 2016-06-12 15:53 | PDOC ---
PROGRESS NOTES Assessment Assessment LE edema. LE weakness. Inferior vena cava thrombosis? Abnormal jerking movements. Orthostatic hypotension. HTN HLD Hypothyroidism, TSH 17.7 Vit D insufficience/deficiency. Anxiety Depression DVT s/p IVC placement L-spine stenosis. RECOMMENDATIONS/PLAN: L-spine CT wo contrast performed. MRI contraindicated to L-spine MRI. Please consult Cardiology for possible inferior vena cava thrombosis. Treat medical diseases. Vit D and Ca++ supplement, further management per PCP. OT/PT Discussed with his at bedside. HCT on 06/06: No acute findings. EEG on 06/07/16: Posterior dominant rhythm is slow for age. C-spine CT: see above. HISTORY OF THE PRESENT ILLNESS: [id number]-[id number] patient was admitted due to LE edema and other medical diseases. He has been having chronic abnormal jerking like movements in hands and feet, but more obvious in hands. PAST MEDICAL HISTORY: Please see above. PAST SURGERY HISTORY: IVC placement. Knee surgery ALLERGY: Reviewed. MEDICATIONS: Refer to [facility] FAMILY HISTORY: Non contributory. Unknown PD hx. SOCIAL HISTORY: Denies smoking, drinking, and illicit drug use. REVIEW OF SYSTEMS: Constitutional: No malnutrition, weight loss, cachexia. Head: No traumatic brain or head injury. Skin: No edema, or rash. Ear: No infection, tinnitus. Eyes: No vision loss or color blindness. Nose: No bleeding or purulent discharges. Hearing: Hearing decrease. Neck: No injury. Cardiac: Syncope, HTN, HLD. Pulmonary: No COPD. GI: No GI ulcer, GI bleeding. Urinary/genital: No dysuria, hematuria, incontinence. Endocrinologic: Diabetes Mellitus Skeletomuscular: No muscular atrophy, deformity. Neurological: see HP. Psychiatric: Denies drug use/abuse. Otherwise, not [id number] review of systems. PHYSICAL EXAMINATION: General appearance is in no acute distress. HEENT: Normocephalic and nontraumatic. Eyes, nose, ears, and throat are unremarkable. Neck is supple. No lymphadenopathy. No bruits are heard over the carotid artery. No crepitus. Cardiovascular: S1, S2, regular rate and rhythm. Pulmonary: Clear to auscultation bilaterally. Abdomen: Bowel sounds are positive. Extremities: No rash, lesions. Non pitting edema in LE. No restriction of range of motion NEUROLOGICAL EXAMINATION: Awake. Oriented to place and person not not to time. PERRL. EOMI. CN: no focal findings. Muscle tone: Mildly increased in right UE. Muscle strength: 4+ UE, 3 LE DTR: 2-, 1 LE Plantar reflex: Flexor response bilaterally Gait: not examined in bed. Sensory exam: no abnormal findings. No obvious cerebellar signs elicited. F-T-N test fine. Objective Objective Vital Signs Date Time Temp Pulse Resp B/P Pulse Ox O2 Delivery O2 Flow Rate FiO2 06/12/16 15:09 98.2 71 20 102/61 95 Room Air 98.2 Intake and Output 06/12/16 07:00 Intake Total 60 ml Balance 60 ml Intake Oral 60 ml # Voids 5 Vitals Signs Vitals VS - Last 72 Hours, by Label Date Time Temp Pulse Resp B/P Pulse Ox O2 Delivery O2 Flow Rate FiO2 06/12/16 15:09 98.2 71 20 102/61 95 Room Air 98.2 06/12/16 15:09 71 102/61 06/12/16 11:45 98.1 65 20 107/62 98 Room Air 98.1 06/12/16 07:00 98.1 60 20 133/68 97 Room Air 98.1 06/12/16 03:00 97.5 62 20 129/52 96 Room Air 97.5 06/11/16 23:00 97.7 69 22 122/64 96 Room Air 97.7 06/11/16 19:20 Room Air 06/11/16 19:00 97.7 72 22 127/63 96 Room Air 97.7 06/11/16 15:15 97.9 76 20 102/51 98 Room Air 97.9 06/11/16 10:10 97.7 63 20 126/72 98 Room Air 97.7 06/11/16 08:00 97.7 61 20 114/64 99 Room Air 97.7 06/11/16 07:30 Room Air Medication Medications Current Medications Sodium Chloride (Iv Sodium Chloride 0.9% 1000ml Bag) 1,000 ml @ 100 mls/hr 1X ONCE IV Last administered on 06/12/16t 15:11; Start 06/12/16 at 14:30; Stop at 00:29 Comment Review of Relevant I have reviewed the following items jorge (where applicable) has been applied. ARLENE ZHOU MD Jun 12, 2016 15:53
--- NOTE | 2016-06-12 16:08 | PDOC ---
CARDIO Progress Notes Date and Time Date of Service 06/12/2016 Time of Evaluation 1550 Subjective Subjective: No Chest Pain, No shortness of breath, No Palpitations, Other (pt cooperative mostly when sife is in room) Vitals Vitals Vital Signs Date Time Temp Pulse Resp B/P Pulse Ox O2 Delivery O2 Flow Rate FiO2 06/12/16 15:09 98.2 71 20 102/61 95 Room Air 98.2 Weight Weight [ ] Input and Output Intake and Output Intake and Output 06/12/16 07:00 Intake Total 60 ml Balance 60 ml Intake Oral 60 ml # Voids 5 Physical Exam HEENT: Neck Supple W Full Motion Chest: Symmetric LUNGS: Clear to Auscultation Heart: S1S2, RRR Abdomen: Other (anasarca) Extremities: No Calf Tenderness, Other (3-4+ bilateral LE pitting edema) Neurology: alert, follow commands, confused (but cooperative) Assessment Assessment 1. Acute bilateral LE DVT: Extensive. on coumadin. Defer to PCP. 2. Anasarca with elevated BNP: Improved. Due to extensive DVT. 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 IVC filter in place and on coumadin. Recent TTE with normal wall motion, preserved EF and no significant valvular abnormalities. Been requested to see pt today in regards to IVC. Will proceed with abdominal ultrasound tomorrow to define any further extension of thrombus to IVC otherwise per CT abdomen IVC filter is well in place. Continue with coumadin. If this is confirmed and any further treatment is warranted would recommend consulting with interventional radiology. 3. Orthostatic Hypotension: Improving. Would consider neurogenic hypotension but suspect of orthostasis likely from inadequate preload from third spacing and possible IVC syndrome. Hypothyroidism contributing. I believe he is responding well with florinef. No supportive orthostatic readings, reinforced this to staff. Continue with PRN midodrine. Orthostatic BP/HR daily. Mechanical compression mainly abd binder to continue. Would defer to neurology if there is an element of neurogenic issue. Nothing further at this time. Continue with supportive care. 4. Constipation: improved. 3. HTN: antiHTN being held. 4. HLP 5. 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 Alzheimers dementia: likely moderate to advanced stage 7. Hx of CVA 8. Hx of hypothyroidism CHIQUI PLEITEZ [employer] Jun 12, 2016 16:08
[2016-06-12 19:00] VITALS: BP_SYST 110; BP_SYST 91; BP_SYST 98; BP_DIAS 59; BP_DIAS 61; BP_DIAS 64
[2016-06-12 23:00] VITALS: BP 115/64
[2016-06-13] VITALS (8 sets, daily range): BP systolic 62–138; BP diastolic 40–70
[2016-06-13 05:06] LABS: BASO # 0.1 x10^3/uL (0.0-0.2); BASO % 1 % (0-3); EOS % 4 % (0-3); HEMATOCRIT 32.9 % (39.0-53.0); HEMOGLOBIN 10.6 g/dL (13.0-17.5); LYMPH # 1.9 x10^3/uL (1.0-4.8); LYMPH % 33 % (24-48); MEAN CORPUSCULAR HEMOGLOBIN 29 pg (25-35); MEAN CORPUSCULAR HGB CONC 32 g/dL (31-37); MEAN CORPUSCULAR VOLUME 89 fL (79-100); MONO % 9 % (0-9); NEUT % 53 % (31-73); PLATELET COUNT 320 x10^3/uL (140-400); RED BLOOD COUNT 3.72 x10^6/uL (4.30-5.70); RED CELL DISTRIBUTION WIDTH 15.5 % (11.5-14.5); WHITE BLOOD COUNT 5.9 x10^3/uL (4.0-11.0)
[2016-06-13 05:36] LABS: CALCIUM 8.2 mg/dL (8.5-10.1); CREATININE 1.1 mg/dL (0.7-1.3); GFR 65.3; POTASSIUM 4.3 mmol/L (3.5-5.1)
[2016-06-13 05:41] LABS: INR 2.6 (0.8-1.1); PROTHROMBIN TIME PATIENT 26.1 SEC (11.7-14.0)
--- NOTE | 2016-06-13 07:30 | RAD ---
Limited abdominal ultrasound, 06/13/2016: History: Evaluate inferior vena cava Sonographic evaluation of the inferior vena cava was attempted including grayscale, color-flow and spectral Doppler analysis. The inferior vena cava in the upper abdomen is patent. In the mid and lower abdomen the inferior vena cava is largely obscured by overlying bowel. The patient's known inferior vena cava filter was not visualized.
[2016-06-13] MEDS: LANSOPRAZOLE 30 MG TAB.RAP.DR FT SCH (10:20)
[2016-06-13] MEDS: FLUDROCORTISONE 0.1 MG TABLET PO SCH (10:20)
[2016-06-13] MEDS: CHOLECALCIFEROL (VITAMIN D3) 5,000 UNIT CAPSULE PO SCH (10:20)
[2016-06-13] MEDS: CLONAZEPAM 0.5 MG TABLET PO SCH ×2 (10:21→21:49)
[2016-06-13] MEDS: DOCUSATE SODIUM 100 MG CAPSULE PO SCH (10:21)
[2016-06-13] MEDS: LEVOTHYROXINE 175 MCG TABLET PO SCH (10:21)
[2016-06-13] MEDS: ASPIRIN 81 MG TAB.CHEW PO SCH (10:21)
[2016-06-13] MEDS: CALCIUM CARBONATE 500 MG TABLET PO SCH ×2 (10:21→16:29)
[2016-06-13] MEDS: CITALOPRAM 20 MG TABLET. PO SCH (10:21)
[2016-06-13] MEDS: MULTIVITAMIN with MINERAL TABLET. PO SCH (10:21)
[2016-06-13] MEDS: MIDODRINE 2.5 MG TABLET PO SCH ×2 (10:22→16:29)
--- NOTE | 2016-06-13 10:41 | PDOC ---
Provider Note Provider Note 06/13/2016 0830 Unable to define the IVC with abdominal ultrasound despite being adequately NPO to define any signs of IVC thrombus and note any IVC syndrome. At this time, I discussed with Dr. Warren that if further imaging is needed then will possibly need a venogram and will defer this and would recommend IR consult. Nothing further at this time, continue with current coumadin treatment in relation to extensive LE DVT. CHIQUI PLEITEZ [employer] Jun 13, 2016 10:41
[2016-06-13] MEDS ORDERED: ACETAMINOPHEN 325 MG TABLET. PO PRN (12:00)
[2016-06-13] MEDS ORDERED: IV NORMAL SALINE 1000ML BAG 1,000 ML IV ONE (12:00)
--- NOTE | 2016-06-13 12:01 | PDOC ---
PROGRESS NOTES Chief Complaint Chief Complaint A/P 1. Acute DVT: extensive to bilateral LE on Warfarin 2. Bilateral lower extremity swelling, Echo normal EF, 3. HTN 5. Hx of DVT/PE: IVC filter , patent. 6. severe Alzheimer dementia: at baseline 7. Hx of CVA 8. Hypothyroidism, not controlled, TSH 15 9. Jerky movements 10. Orthostatic Hypotension Plan 1. EEG no acute findings. 2.IR consult recommended by card for possible IVC filter thrombosis, however, pt got CT with iv contrast, didnot mention if there was any pelvis or abd thrombosis. abd US didnot see IVC filter 3. Hold metoprolol, IVF today, add midodrine tid 4. Echo results reviewed NO CHF 5. PT/OT 6. Ctalked to again, recommend SNF, but seems family just wanna go home PAT consult , hope at least DNR. History of Present Illness History of Present Illness no fever no chills severe orthostatic hypotension very demented Vitals Vitals Vital Signs Date Time Temp Pulse Resp B/P Pulse Ox O2 Delivery O2 Flow Rate FiO2 06/13/16 11:43 98.1 65 14 107/52 94 Room Air 98.1 Physical Exam Physical Exam not answer questions or follow commands General: Alert, Cooperative, No acute distress, Other (not oriented. ) Heart: Regular rate, Normal S1, Normal S2, Other Lungs: Crackles Abdomen: Normal bowel sounds, Soft, Other (unable to assess due to active tension to abdominal muscles during palpation, but notable grimacing) Extremities: Other (2-3+ bilateral LE pitting edema from foot to thigh. scrotal edema, ) Skin: No rashes, No breakdown, No significant lesion, Other (multiple small scab lesions to left thigh) Labs LABS Laboratory Tests Test 06/13/16 04:30 White Blood Count 5.9x10^3/uL (4.0-11.0) Red Blood Count 3.72x10^6/uL (4.30-5.70) Hemoglobin 10.6g/dL (13.0-17.5) Hematocrit 32.9% (39.0-53.0) Mean Corpuscular Volume 89fL (79-100) Mean Corpuscular Hemoglobin 29pg (25-35) Mean Corpuscular Hemoglobin Concent 32g/dL (31-37) Red Cell Distribution Width 15.5% (11.5-14.5) Platelet Count 320x10^3/uL (140-400) Neutrophils (%) (Auto) 53% (31-73) Lymphocytes (%) (Auto) 33% (24-48) Monocytes (%) (Auto) 9% (0-9) Eosinophils (%) (Auto) 4% (0-3) Basophils (%) (Auto) 1% (0-3) Neutrophils # (Auto) 3.1x10^3uL (1.8-7.7) Lymphocytes # (Auto) 1.9x10^3/uL (1.0-4.8) Monocytes # (Auto) 0.5x10^3/uL (0.0-1.1) Eosinophils # (Auto) 0.2x10^3/uL (0.0-0.7) Basophils # (Auto) 0.1x10^3/uL (0.0-0.2) Prothrombin Time 26.1SEC (11.7-14.0) Prothromb Time International Ratio 2.6 (0.8-1.1) Sodium Level 142mmol/L (136-145) Potassium Level 4.3mmol/L (3.5-5.1) Chloride Level 107mmol/L (98-107) Carbon Dioxide Level 30mmol/L (21-32) Anion Gap 5 (6-14) Blood Urea Nitrogen 15mg/dL (8-26) Creatinine 1.1mg/dL (0.7-1.3) Estimated GFR (Cockcroft-Gault) 65.3 Glucose Level 88mg/dL (70-99) Calcium Level 8.2mg/dL (8.5-10.1) Review of Systems Review of Systems no fever, chills, sob or chest pain Assessment and Plan Assessmemt and Plan Problems Medical Problems: (1) Anasarca Status: Acute (2) Orthostatic hypotension Status: Acute Problems: Comment Review of Relevant I have reviewed the following items jorge (where applicable) has been applied. Labs Laboratory Tests Test 06/13/16 04:30 White Blood Count 5.9x10^3/uL (4.0-11.0) Red Blood Count 3.72x10^6/uL (4.30-5.70) Hemoglobin 10.6g/dL (13.0-17.5) Hematocrit 32.9% (39.0-53.0) Mean Corpuscular Volume 89fL (79-100) Mean Corpuscular Hemoglobin 29pg (25-35) Mean Corpuscular Hemoglobin Concent 32g/dL (31-37) Red Cell Distribution Width 15.5% (11.5-14.5) Platelet Count 320x10^3/uL (140-400) Neutrophils (%) (Auto) 53% (31-73) Lymphocytes (%) (Auto) 33% (24-48) Monocytes (%) (Auto) 9% (0-9) Eosinophils (%) (Auto) 4% (0-3) Basophils (%) (Auto) 1% (0-3) Neutrophils # (Auto) 3.1x10^3uL (1.8-7.7) Lymphocytes # (Auto) 1.9x10^3/uL (1.0-4.8) Monocytes # (Auto) 0.5x10^3/uL (0.0-1.1) Eosinophils # (Auto) 0.2x10^3/uL (0.0-0.7) Basophils # (Auto) 0.1x10^3/uL (0.0-0.2) Prothrombin Time 26.1SEC (11.7-14.0) Prothromb Time International Ratio 2.6 (0.8-1.1) Sodium Level 142mmol/L (136-145) Potassium Level 4.3mmol/L (3.5-5.1) Chloride Level 107mmol/L (98-107) Carbon Dioxide Level 30mmol/L (21-32) Anion Gap 5 (6-14) Blood Urea Nitrogen 15mg/dL (8-26) Creatinine 1.1mg/dL (0.7-1.3) Estimated GFR (Cockcroft-Gault) 65.3 Glucose Level 88mg/dL (70-99) Calcium Level 8.2mg/dL (8.5-10.1) Laboratory Tests Test 06/13/16 04:30 White Blood Count 5.9x10^3/uL (4.0-11.0) Red Blood Count 3.72x10^6/uL (4.30-5.70) Hemoglobin 10.6g/dL (13.0-17.5) Hematocrit 32.9% (39.0-53.0) Mean Corpuscular Volume 89fL (79-100) Mean Corpuscular Hemoglobin 29pg (25-35) Mean Corpuscular Hemoglobin Concent 32g/dL (31-37) Red Cell Distribution Width 15.5% (11.5-14.5) Platelet Count 320x10^3/uL (140-400) Neutrophils (%) (Auto) 53% (31-73) Lymphocytes (%) (Auto) 33% (24-48) Monocytes (%) (Auto) 9% (0-9) Eosinophils (%) (Auto) 4% (0-3) Basophils (%) (Auto) 1% (0-3) Neutrophils # (Auto) 3.1x10^3uL (1.8-7.7) Lymphocytes # (Auto) 1.9x10^3/uL (1.0-4.8) Monocytes # (Auto) 0.5x10^3/uL (0.0-1.1) Eosinophils # (Auto) 0.2x10^3/uL (0.0-0.7) Basophils # (Auto) 0.1x10^3/uL (0.0-0.2) Prothrombin Time 26.1SEC (11.7-14.0) Prothromb Time International Ratio 2.6 (0.8-1.1) Sodium Level 142mmol/L (136-145) Potassium Level 4.3mmol/L (3.5-5.1) Chloride Level 107mmol/L (98-107) Carbon Dioxide Level 30mmol/L (21-32) Anion Gap 5 (6-14) Blood Urea Nitrogen 15mg/dL (8-26) Creatinine 1.1mg/dL (0.7-1.3) Estimated GFR (Cockcroft-Gault) 65.3 Glucose Level 88mg/dL (70-99) Calcium Level 8.2mg/dL (8.5-10.1) Medications Current Medications Furosemide (Lasix) 40 mg 1X ONCE IVP Last administered on 06/02/16t 22:13; Start 06/02/16 at 22:00; Stop 06/02/16 at 22:01; Status DC Ondansetron HCl (Zofran) 4 mg PRN Q8HRS PRN IV NAUSEA/VOMITING; Start 06/02/16 at 23:00; Stop 06/03/16 at 22:59; Status DC Acetaminophen (Tylenol) 650 mg PRN Q4HRS PRN PO FEVER; Start 06/02/16 at 23:00 ; Stop 06/03/16 at 22:59; Status DC Furosemide (Lasix) 40 mg 1X ONCE IVP Last administered on 06/03/16 12:23; Start 06/03/16 at 12:00; Stop 06/03/16 at 12:01; Status DC Aspirin (Children'S Aspirin) 81 mg DAILY PO Last administered on 06/13/16 10: 21; Start 06/03/16 at 15:00 Enoxaparin Sodium (Lovenox 100mg Syringe) 100 mg BID SQ Last administered on 21:01; Start 06/03/16 at 14:00; Stop 06/05/16 at 12:51; Status DC Levothyroxine Sodium (Synthroid) 150 mcg DAILYAC PO Last administered on 08:32; Start 06/04/16 at 07:30; Stop 06/08/16 at 11:57; Status DC Warfarin Sodium (Coumadin) 5 mg DAILY PO ; Start 06/04/16 at 09:00; Stop at 09:00; Status DC Citalopram Hydrobromide (Celexa) 40 mg DAILY PO Last administered on 06/13/16 10:21; Start 06/03/16 at 15:00 Non-Formulary Medication 1 tab QHS PO ; Start 06/03/16 at 21:00; Stop 06/03/16 at 21:00; Status DC Pantoprazole Sodium (Protonix) 40 mg DAILYAC PO Last administered on 06/09/16 06:53; Start 06/03/16 at 17:30; Stop 06/10/16 at 08:03; Status DC Docusate Sodium (Colace) 100 mg DAILY PO Last administered on 06/13/16 10:21; Start 06/03/16 at 15:00 Multivitamins/ Calcium (Thera M Plus) 1 tab DAILY PO Last administered on 10:21; Start 06/03/16 at 15:00 Warfarin Sodium (Coumadin Per Pharmacy) 1 each PRN DAILY PRN MC SEE COMMENTS Last administered on 06/12/16 15:06; Start 06/03/16 at 15:00 Warfarin Sodium (Coumadin) 6 mg 1X WARF ONCE PO Last administered on 17:25; Start 06/03/16 at 16:00; Stop 06/03/16 at 16:01; Status DC Warfarin Sodium (Coumadin) 5 mg DAILY16 PO Last administered on 06/12/16 15:10 ; Start 06/04/16 at 18:51 Info (Anti-Coagulation Monitoring By Pharmacy) 1 each PRN DAILY PRN MC SEE COMMENTS; Start 06/04/16 at 19:00; Stop 06/05/16 at 12:51; Status DC Clonazepam (Klonopin) 0.5 mg BID PO Last administered on 06/13/16 10:21; Start 06/06/16 at 15:15 Metoprolol Succinate (Toprol Xl) 25 mg DAILY PO ; Start 06/06/16 at 18:00; Stop 06/07/16 at 16:24; Status DC Polyethylene Glycol (miraLAX PACKET) 17 gm 1X ONCE PO Last administered on 08:32; Start 06/08/16 at 08:00; Stop 06/08/16 at 08:04; Status DC Vitamin D (Vitamin D3) 5,000 unit DAILY PO Last administered on 06/13/16 10:20 ; Start 06/08/16 at 11:00 Calcium Carbonate/ Glycine (Oscal) 500 mg BIDWMEALS PO Last administered on 10:21; Start 06/08/16 at 11:30 Midodrine 2.5 mg 2.5 mg [id number] PO Last administered on 06/09/16 13:58; Start 06/08/16 at 13:00; Stop 06/09/16 at 16:19; Status DC Sodium Chloride (Iv Sodium Chloride 0.9% 500ml Bag) 500 ml @ 500 mls/hr 1X ONCE IV Last administered on 06/08/16 11:59; Start 06/08/16 at 12:00; Stop at 12:59; Status DC Levothyroxine Sodium (Synthroid) 175 mcg DAILY07 PO Last administered on 10:21; Start 06/09/16 at 07:00 Lorazepam (Ativan) 1 mg 1X ONCE IV Last administered on 06/08/16 18:25; Start 06/08/16 at 18:20; Stop 06/08/16 at 18:21; Status DC Iohexol (Omnipaque 300 Mg/ml) 75 ml 1X ONCE IV Last administered on 06/09/16 15:22; Start 06/09/16 at 15:00; Stop 06/09/16 at 15:01; Status DC Info (Do NOT chart on this entry -- for MONITORING) 1 each PRN DAILY PRN MC SEE COMMENTS; Start 06/09/16 at 15:00; Stop 06/11/16 at 14:59; Status DC Midodrine (Proamatine) 2.5 mg [id number] PRN PO ELEVATED BP, SEE COMMENTS Last administered on 06/12/16 15:09; Start 06/09/16 at 16:30; Stop 06/13/16 at 10:03 ; Status DC Fludrocortisone Acetate (Florinef) 0.1 mg DAILY PO Last administered on 10:20; Start 06/09/16 at 17:00 Lansoprazole (Prevacid) 30 mg DAILYAC FT Last administered on 06/13/16 10:20; Start 06/10/16 at 08:30 Polyethylene Glycol 17 gm 17 gm PRN DAILY PRN PO CONSTIPATION Last administered on 06/11/16 13:47; Start 06/11/16 at 13:30 Sodium Chloride (Iv Sodium Chloride 0.9% 1000ml Bag) 1,000 ml @ 100 mls/hr 1X ONCE IV Last administered on 06/12/16 15:11; Start 06/12/16 at 14:30; Stop at 00:29; Status DC Midodrine (Proamatine) 2.5 mg [id number] PO ; Start 06/13/16 at 13:00; Stop at 13:00; Status DC Midodrine (Proamatine) 2.5 mg [id number] PO Last administered on 06/13/16 10:22; Start 06/13/16 at 10:15 Active Scripts Active Klonopin (Clonazepam) 0.5 Mg Tablet 1 Tab PO BID Reported Levothyroxine Sodium 150 Mcg Tablet 150 Mcg PO DAILY Warfarin Sodium 5 Mg Tablet 5 Mg PO DAILY Citalopram Hbr (Citalopram Hydrobromide) 40 Mg Tablet 40 Mg PO DAILY Stool Softener (Docusate Sodium) 50 Mg Capsule Unknown Dose PO Daily Vitamin (Multivitamin) 1 Each Tablet 1 Each PO Melatonin 3 Mg Tablet 1 Tab PO QHS Aspirin 81 Mg Tab.chew 1 Tab PO DAILY Simvastatin 40 Mg Tablet 1 Tab PO QHS Omeprazole 40 Mg Capsule. 1 Cap PO DAILY Vitals/I & O Vital Sign - Last 24 Hours 06/12/16 06/12/16 06/12/16 06/12/16 15:09 15:09 19:00 19:00 Temp 98.2 97.8 98.2 97.8 Pulse 71 71 66 Resp 20 20 B/P 102/61 102/61 91/59 110/61 Pulse Ox 95 95 O2 Delivery Room Air Room Air 06/12/16 06/12/16 06/12/16 06/13/16 19:00 20:36 23:00 03:10 Temp 99.4 98.3 99.4 98.3 Pulse 71 57 57 Resp 20 20 B/P 98/64 115/64 121/65 Pulse Ox 95 96 O2 Delivery Room Air Room Air Room Air 06/13/16 06/13/16 06/13/16 06/13/16 07:30 09:59 09:59 10:00 Temp 97.2 97.2 Pulse 68 55 72 76 Resp 18 B/P 138/70 115/69 83/49 62/40 Pulse Ox 97 O2 Delivery Room Air 06/13/16 06/13/16 10:22 11:43 Temp 98.1 98.1 Pulse 76 65 Resp 14 B/P 115/64 107/52 Pulse Ox 94 O2 Delivery Room Air Intake and Output 06/12/16 06/12/16 06/13/16 15:00 23:00 07:00 Intake Total 1050 ml Balance 1050 ml GREGORY ZUNIGA MD Jun 13, 2016 12:00
[2016-06-13] MEDS ORDERED: MIDODRINE 2.5 MG TABLET PO SCH (13:00)
[2016-06-13] MEDS: WARFARIN 5 MG TABLET. PO SCH (16:29)
--- NOTE | 2016-06-13 16:29 | PDOC ---
Provider Note Provider Note IR Note: Asked to evaluate and ? treat possible IVC filter thrombosis---thank you. Imaging reviewed: [facility] venous doppler from 05/27 16 revealed extensive bilateral [id number] DVT. [facility] CT abd/pelvis from 06/09/16 raises ? of venous thrombosis from IVC filter thru visualized upper femoral veins---I have requested repeat bilateral lower extremity venous Doppler to confirm or exclude persistent [id number] DVT (on Coumadin anticoagulation). I have also requested Doppler of IVC and iliac veins to confirm or excluded ilio-caval extension of thrombus. If ilio-caval thrombus is confirmed, endovascular catheter directed thrombolysis /thrombectomy could be considered. However, that may well prove to be a complex procedure, requiring 24-72 hrs of catheter directed thrombolysis thru bilateral pop vein sheaths in an ICU setting, following correction of INR with heparin or Lovenox bridging. Given Mr Syed's dementia, he may well be unable to tolerate such a prolonged intervention. In that case, conventional treatment with continued anticoagulation, leg elevation, and compression stockings would be recommended. Will follow. ABHI THACKER MD Jun 13, 2016 16:28
--- NOTE | 2016-06-13 19:01 | PDOC2 ---
PALLIATIVE CARE Palliative Care Note Palliative Care Consult requested by to address goals of care Information obtained from medical record Diagnosis: Acute DVT: extensive to bilateral LE; . Bilateral lower extremity swelling, Echo normal EF, . HTN . Hx of DVT/PE: IVC filter , patent. severe Alzheimer dementia: at baseline. Hx of CVA. Hypothyroidism, not controlled, TSH 15 Spoke with Vi. Plan family meeting tomorrow at 1330 to discuss goals of care MARYSE HEATH Jun 13, 2016 19:01
[2016-06-14] VITALS (8 sets, daily range): BP systolic 84–133; BP diastolic 41–66
[2016-06-14] MEDS: LEVOTHYROXINE 175 MCG TABLET PO SCH (06:12)
[2016-06-14] MEDS: MIDODRINE 2.5 MG TABLET PO SCH ×3 (06:14→17:11)
--- NOTE | 2016-06-14 07:25 | RAD ---
Bilateral lower venous ultrasound, 06/13/2016: History: Follow-up DVT Duplex evaluation of the deep veins in both lower extremity was performed including grayscale, color-flow and spectral Doppler analysis. The exam is partially compromised by patient difficulty in cooperating. On the right, there is occlusive thrombus in the iliac, common femoral and superficial femoral veins. There is nonocclusive thrombus in the right popliteal and posterior tibial veins with some internal flow evident. Flow is present in the right greater saphenous vein. On the left, there is occlusive thrombus in the iliac vein. There is thrombus in the left common femoral vein, although a small amount of internal blood flow is noted. The left greater saphenous vein is patent. There is occlusive thrombus in the superficial femoral vein in the left thigh and in the left popliteal vein. Nonocclusive thrombus is evident in posterior tibial veins in the left calf. IMPRESSION: 1. Occlusive thrombus in the iliac veins bilaterally. 2. Extensive bilateral lower extremity deep vein thrombosis as described above.
[2016-06-14] MEDS: LANSOPRAZOLE 30 MG TAB.RAP.DR FT SCH (08:18)
[2016-06-14] MEDS: MULTIVITAMIN with MINERAL TABLET. PO SCH (08:18)
[2016-06-14] MEDS: FLUDROCORTISONE 0.1 MG TABLET PO SCH (08:19)
[2016-06-14] MEDS: CLONAZEPAM 0.5 MG TABLET PO SCH ×2 (08:19→20:59)
[2016-06-14] MEDS: CALCIUM CARBONATE 500 MG TABLET PO SCH ×2 (08:19→17:07)
[2016-06-14] MEDS: CITALOPRAM 20 MG TABLET. PO SCH (08:19)
[2016-06-14] MEDS: CHOLECALCIFEROL (VITAMIN D3) 5,000 UNIT CAPSULE PO SCH (08:19)
[2016-06-14] MEDS: DOCUSATE SODIUM 100 MG CAPSULE PO SCH (08:19)
[2016-06-14] MEDS: ASPIRIN 81 MG TAB.CHEW PO SCH (08:19)
[2016-06-14 10:09] LABS: INR 2.7 (0.8-1.1); PROTHROMBIN TIME PATIENT 27.2 SEC (11.7-14.0)
--- NOTE | 2016-06-14 12:27 | PDOC ---
PROGRESS NOTES Chief Complaint Chief Complaint A/P 1. Acute DVT: extensive to bilateral LE on Warfarin, and bl iliac DVT 2. Bilateral lower extremity swelling 2/2 DVT, Echo normal EF, 3. HTN 5. Hx of DVT/PE: IVC filter in place 6. severe Alzheimer dementia: at baseline 7. Hx of CVA 8. Hypothyroidism, not controlled, TSH 15 9. Jerky movements 10. Orthostatic Hypotension Plan 1. EEG no acute findings. 2.IR consuled, given pt extensive Lower body DVT, could do thrombolysis. However , given pt severe demented, with other comorbidities, might not be a candidate for this extensive procedure 3. Hold metoprolol, IVF today, add midodrine tid 4. Echo results reviewed NO CHF 5. PT/OT 6. Ctalked to again, recommend SNF, but seems family just wanna go home. PAT meeting today PAT consult , hope at least DNR. History of Present Illness History of Present Illness no fever no chills severe orthostatic hypotension very demented Vitals Vitals Vital Signs Date Time Temp Pulse Resp B/P Pulse Ox O2 Delivery O2 Flow Rate FiO2 06/14/16 10:10 64 84/41 06/14/16 10:00 98.2 18 96 Room Air 98.2 Physical Exam Physical Exam not answer questions or follow commands General: Alert, Cooperative, No acute distress, Other (not oriented. ) Heart: Regular rate, Normal S1, Normal S2, Other Lungs: Crackles Abdomen: Normal bowel sounds, Soft, Other (unable to assess due to active tension to abdominal muscles during palpation, but notable grimacing) Extremities: Other (2-3+ bilateral LE pitting edema from foot to thigh. scrotal edema, ) Skin: No rashes, No breakdown, No significant lesion, Other (multiple small scab lesions to left thigh) Labs LABS Laboratory Tests Test 06/14/16 09:05 Prothrombin Time 27.2SEC (11.7-14.0) Prothromb Time International Ratio 2.7 (0.8-1.1) Review of Systems Review of Systems no fever, chills, sob or chest pain Assessment and Plan Assessmemt and Plan Problems Medical Problems: (1) Anasarca Status: Acute (2) Orthostatic hypotension Status: Acute Problems: Comment Review of Relevant I have reviewed the following items jorge (where applicable) has been applied. Labs Laboratory Tests Test 06/13/16 04:30 06/14/16 09:05 White Blood Count 5.9x10^3/uL (4.0-11.0) Red Blood Count 3.72x10^6/uL (4.30-5.70) Hemoglobin 10.6g/dL (13.0-17.5) Hematocrit 32.9% (39.0-53.0) Mean Corpuscular Volume 89fL (79-100) Mean Corpuscular Hemoglobin 29pg (25-35) Mean Corpuscular Hemoglobin Concent 32g/dL (31-37) Red Cell Distribution Width 15.5% (11.5-14.5) Platelet Count 320x10^3/uL (140-400) Neutrophils (%) (Auto) 53% (31-73) Lymphocytes (%) (Auto) 33% (24-48) Monocytes (%) (Auto) 9% (0-9) Eosinophils (%) (Auto) 4% (0-3) Basophils (%) (Auto) 1% (0-3) Neutrophils # (Auto) 3.1x10^3uL (1.8-7.7) Lymphocytes # (Auto) 1.9x10^3/uL (1.0-4.8) Monocytes # (Auto) 0.5x10^3/uL (0.0-1.1) Eosinophils # (Auto) 0.2x10^3/uL (0.0-0.7) Basophils # (Auto) 0.1x10^3/uL (0.0-0.2) Prothrombin Time 26.1SEC (11.7-14.0) 27.2SEC (11.7-14.0) Prothromb Time International Ratio 2.6 (0.8-1.1) 2.7 (0.8-1.1) Sodium Level 142mmol/L (136-145) Potassium Level 4.3mmol/L (3.5-5.1) Chloride Level 107mmol/L (98-107) Carbon Dioxide Level 30mmol/L (21-32) Anion Gap 5 (6-14) Blood Urea Nitrogen 15mg/dL (8-26) Creatinine 1.1mg/dL (0.7-1.3) Estimated GFR (Cockcroft-Gault) 65.3 Glucose Level 88mg/dL (70-99) Calcium Level 8.2mg/dL (8.5-10.1) Laboratory Tests Test 06/14/16 09:05 Prothrombin Time 27.2SEC (11.7-14.0) Prothromb Time International Ratio 2.7 (0.8-1.1) Medications Current Medications Furosemide (Lasix) 40 mg 1X ONCE IVP Last administered on 06/02/16 22:13; Start 06/02/16 at 22:00; Stop 06/02/16 at 22:01; Status DC Ondansetron HCl (Zofran) 4 mg PRN Q8HRS PRN IV NAUSEA/VOMITING; Start 06/02/16 at 23:00; Stop 06/03/16 at 22:59; Status DC Acetaminophen (Tylenol) 650 mg PRN Q4HRS PRN PO FEVER; Start 06/02/16 at 23:00 ; Stop 06/03/16 at 22:59; Status DC Furosemide (Lasix) 40 mg 1X ONCE IVP Last administered on 06/03/16 12:23; Start 06/03/16 at 12:00; Stop 06/03/16 at 12:01; Status DC Aspirin (Children'S Aspirin) 81 mg DAILY PO Last administered on 06/14/16 08:19 ; Start 06/03/16 at 15:00 Enoxaparin Sodium (Lovenox 100mg Syringe) 100 mg BID SQ Last administered on 21:01; Start 06/03/16 at 14:00; Stop 06/05/16 at 12:51; Status DC Levothyroxine Sodium (Synthroid) 150 mcg DAILYAC PO Last administered on 08:32; Start 06/04/16 at 07:30; Stop 06/08/16 at 11:57; Status DC Warfarin Sodium (Coumadin) 5 mg DAILY PO ; Start 06/04/16 at 09:00; Stop at 09:00; Status DC Citalopram Hydrobromide (Celexa) 40 mg DAILY PO Last administered on 06/14/16 08:19; Start 06/03/16 at 15:00 Non-Formulary Medication 1 tab QHS PO ; Start 06/03/16 at 21:00; Stop 06/03/16 at 21:00; Status DC Pantoprazole Sodium (Protonix) 40 mg DAILYAC PO Last administered on 06/09/16 06:53; Start 06/03/16 at 17:30; Stop 06/10/16 at 08:03; Status DC Docusate Sodium (Colace) 100 mg DAILY PO Last administered on 06/12/16 14:48; Start 06/03/16 at 15:00 Multivitamins/ Calcium (Thera M Plus) 1 tab DAILY PO Last administered on 08:18; Start 06/03/16 at 15:00 Warfarin Sodium (Coumadin Per Pharmacy) 1 each PRN DAILY PRN MC SEE COMMENTS Last administered on 06/13/16 14:37; Start 06/03/16 at 15:00 Warfarin Sodium (Coumadin) 6 mg 1X WARF ONCE PO Last administered on 17:25; Start 06/03/16 at 16:00; Stop 06/03/16 at 16:01; Status DC Warfarin Sodium (Coumadin) 5 mg DAILY16 PO Last administered on 06/13/16 16:29 ; Start 06/04/16 at 18:51 Info (Anti-Coagulation Monitoring By Pharmacy) 1 each PRN DAILY PRN MC SEE COMMENTS; Start 06/04/16 at 19:00; Stop 06/05/16 at 12:51; Status DC Clonazepam (Klonopin) 0.5 mg BID PO Last administered on 06/14/16 08:19; Start 06/06/16 at 15:15 Metoprolol Succinate (Toprol Xl) 25 mg DAILY PO ; Start 06/06/16 at 18:00; Stop 06/07/16 at 16:24; Status DC Polyethylene Glycol (miraLAX PACKET) 17 gm 1X ONCE PO Last administered on 08:32; Start 06/08/16 at 08:00; Stop 06/08/16 at 08:04; Status DC Vitamin D (Vitamin D3) 5,000 unit DAILY PO Last administered on 06/14/16 08:19 ; Start 06/08/16 at 11:00 Calcium Carbonate/ Glycine (Oscal) 500 mg BIDWMEALS PO Last administered on 06/14 08:19; Start 06/08/16 at 11:30 Midodrine 2.5 mg 2.5 mg [id number] PO Last administered on 06/09/16 13:58; Start 06/08/16 at 13:00; Stop 06/09/16 at 16:19; Status DC Sodium Chloride (Iv Sodium Chloride 0.9% 500ml Bag) 500 ml @ 500 mls/hr 1X ONCE IV Last administered on 06/08/16 11:59; Start 06/08/16 at 12:00; Stop at 12:59; Status DC Levothyroxine Sodium (Synthroid) 175 mcg DAILY07 PO Last administered on 06:12; Start 06/09/16 at 07:00 Lorazepam (Ativan) 1 mg 1X ONCE IV Last administered on 06/08/16 18:25; Start 06/08/16 at 18:20; Stop 06/08/16 at 18:21; Status DC Iohexol (Omnipaque 300 Mg/ml) 75 ml 1X ONCE IV Last administered on 06/09/16 15:22; Start 06/09/16 at 15:00; Stop 06/09/16 at 15:01; Status DC Info (Do NOT chart on this entry -- for MONITORING) 1 each PRN DAILY PRN MC SEE COMMENTS; Start 06/09/16 at 15:00; Stop 06/11/16 at 14:59; Status DC Midodrine (Proamatine) 2.5 mg [id number] PRN PO ELEVATED BP, SEE COMMENTS Last administered on 06/12/16 15:09; Start 06/09/16 at 16:30; Stop 06/13/16 at 10:03 ; Status DC Fludrocortisone Acetate (Florinef) 0.1 mg DAILY PO Last administered on 08:19; Start 06/09/16 at 17:00 Lansoprazole (Prevacid) 30 mg DAILYAC FT Last administered on 06/14/16 08:18; Start 06/10/16 at 08:30 Polyethylene Glycol 17 gm 17 gm PRN DAILY PRN PO CONSTIPATION Last administered on 06/11/16 13:47; Start 06/11/16 at 13:30 Sodium Chloride (Iv Sodium Chloride 0.9% 1000ml Bag) 1,000 ml @ 100 mls/hr 1X ONCE IV Last administered on 06/12/16 15:11; Start 06/12/16 at 14:30; Stop at 00:29; Status DC Midodrine (Proamatine) 2.5 mg [id number] PO ; Start 06/13/16 at 13:00; Stop at 13:00; Status DC Midodrine (Proamatine) 2.5 mg [id number] PO Last administered on 06/14/16 06:14; Start 06/13/16 at 10:15 Acetaminophen 650 mg 650 mg PRN Q6HRS PRN PO MILD PAIN / TEMP; Start 06/13/16 at 12:00 Sodium Chloride (Iv Sodium Chloride 0.9% 1000ml Bag) 1,000 ml @ 100 mls/hr 1X ONCE IV Last administered on 06/13/16 12:26; Start 06/13/16 at 12:00; Stop at 21:59; Status DC Active Scripts Active Klonopin (Clonazepam) 0.5 Mg Tablet 1 Tab PO BID Reported Levothyroxine Sodium 150 Mcg Tablet 150 Mcg PO DAILY Warfarin Sodium 5 Mg Tablet 5 Mg PO DAILY Citalopram Hbr (Citalopram Hydrobromide) 40 Mg Tablet 40 Mg PO DAILY Stool Softener (Docusate Sodium) 50 Mg Capsule Unknown Dose PO Daily Vitamin (Multivitamin) 1 Each Tablet 1 Each PO Melatonin 3 Mg Tablet 1 Tab PO QHS Aspirin 81 Mg Tab.chew 1 Tab PO DAILY Simvastatin 40 Mg Tablet 1 Tab PO QHS Omeprazole 40 Mg Capsule. 1 Cap PO DAILY Vitals/I & O Vital Sign - Last 24 Hours 06/13/16 06/13/16 06/13/16 06/13/16 15:00 16:29 19:35 20:00 Temp 97.5 98.8 97.5 98.8 Pulse 65 63 72 Resp 18 B/P 102/64 126/70 108/70 Pulse Ox 97 100 O2 Delivery Room Air Room Air Room Air 06/13/16 06/14/16 06/14/16 06/14/16 23:05 03:00 06:14 07:00 Temp 98.0 97.7 98.1 98.0 97.7 98.1 Pulse 65 85 66 61 Resp 20 18 18 B/P 116/65 108/43 110/73 133/66 Pulse Ox 97 94 97 O2 Delivery Room Air Room Air Room Air 06/14/16 06/14/16 06/14/16 06/14/16 07:41 10:00 10:05 10:10 Temp 98.2 98.2 Pulse 68 72 64 Resp 18 B/P 107/53 107/64 84/41 Pulse Ox 96 O2 Delivery Room Air Room Air Intake and Output 06/13/16 06/13/16 06/14/16 15:00 23:00 07:00 Intake Total 240 ml 400 ml 0 ml Balance 240 ml 400 ml 0 ml GREGORY [email or web address] MD Jun 14, 2016 12:27
--- NOTE | 2016-06-14 16:08 | PDOC2 ---
PALLIATIVE CARE Palliative Care Note Palliative Care Patient alert. Confused Met with Vi, daughter Shaista; daughter Samra unable to attend. Reviewed current medical condition: Acute DVT bilateral lower extremities; lower extremity swelling HTN ; dementia--significant symptoms starting 2010( unable to find his way to work) Hx. DVT/PE with IVC filter 2008. Jerky movements, Information obtained from medical record and family Family shared patient was able to feed himself, walk, caring on conversation at [facility]. Early May patient with decreased po intake, legs swelling mid May with hospitalized at [facility] and [facility]. Patient with increased po intake at that return. Returned home May 31 legs remained swollen/on Lovenox. Admitted June 02 at [facility]. Patient has AD. Requested copy Patient had requested DNR/DNI. They wish to follow his wishes. Outside the Hospital DNR/DNI form signed b y . will need physician signature. Family requests more information regarding proposed thrombolysis/thrombectomy procedure before making a decision. Kelvin Galicia aware of family request. Discussed hospice as support if no further aggressive treatment. Family does not feel patient is at baseline regarding dementia. Patient prefers finger foods. Eating with assistance 50% Plan; DNR/DNI Dr. Warren will write order. Family will need more information regarding treatment options -- benefits and burdens. MARYSE HEATH Jun 14, 2016 16:08
[2016-06-14] MEDS: WARFARIN 5 MG TABLET. PO SCH (17:07)
--- NOTE | 2016-06-14 18:35 | PDOC ---
PROGRESS NOTES Assessment Assessment 06-13-16 LE edema. LE weakness. Inferior vena cava thrombosis? Abnormal jerking movements. Orthostatic hypotension. HTN HLD Hypothyroidism, TSH 17.7 Vit D insufficience/deficiency. Anxiety Depression DVT s/p IVC placement L-spine stenosis. RECOMMENDATIONS/PLAN: MRI contraindicated to L-spine MRI. Consulted Cardiology for possible inferior vena cava thrombosis. May consult Vascular Surgery. Treat medical diseases. Vit D and Ca++ supplement, further management per PCP. OT/PT Discussed with his at bedside. HCT on 06/06: No acute findings. EEG on 06/07/16: Posterior dominant rhythm is slow for age. C-spine CT: see above. HISTORY OF THE PRESENT ILLNESS: 23-s-lqy-male patient was admitted due to LE edema and other medical diseases. He has been having chronic abnormal jerking like movements in hands and feet, but more obvious in hands. PAST MEDICAL HISTORY: Please see above. PAST SURGERY HISTORY: IVC placement. Knee surgery ALLERGY: Reviewed. MEDICATIONS: Refer to [facility] FAMILY HISTORY: Non contributory. Unknown PD hx. SOCIAL HISTORY: Denies smoking, drinking, and illicit drug use. REVIEW OF SYSTEMS: Constitutional: No malnutrition, weight loss, cachexia. Head: No traumatic brain or head injury. Skin: No edema, or rash. Ear: No infection, tinnitus. Eyes: No vision loss or color blindness. Nose: No bleeding or purulent discharges. Hearing: Hearing decrease. Neck: No injury. Cardiac: Syncope, HTN, HLD. Pulmonary: No COPD. GI: No GI ulcer, GI bleeding. Urinary/genital: No dysuria, hematuria, incontinence. Endocrinologic: Diabetes Mellitus Skeletomuscular: No muscular atrophy, deformity. Neurological: see HP. Psychiatric: Denies drug use/abuse. Otherwise, not [id number] review of systems. PHYSICAL EXAMINATION: General appearance is in no acute distress. HEENT: Normocephalic and nontraumatic. Eyes, nose, ears, and throat are unremarkable. Neck is supple. No lymphadenopathy. No bruits are heard over the carotid artery. No crepitus. Cardiovascular: S1, S2, regular rate and rhythm. Pulmonary: Clear to auscultation bilaterally. Abdomen: Bowel sounds are positive. Extremities: No rash, lesions. Non pitting edema in LE. No restriction of range of motion NEUROLOGICAL EXAMINATION: Eyes close but awake. Oriented to place and person but not to time. PERRL. EOMI. CN: no focal findings. Muscle tone: Mildly increased in right UE. Muscle strength: 4+ UE, 3 LE DTR: 2-, 1 LE Plantar reflex: Flexor response bilaterally Gait: not examined in bed. Sensory exam: no abnormal findings. No obvious cerebellar signs elicited. F-T-N test fine. Objective Objective Vital Signs Date Time Temp Pulse Resp B/P Pulse Ox O2 Delivery O2 Flow Rate FiO2 06/14/16 17:11 70 112/63 06/14/16 14:56 97.7 20 97 Room Air 97.7 Intake and Output 06/14/16 07:00 Intake Total 640 ml Balance 640 ml Intake Oral 640 ml # Voids 5 # Bowel Movements 3 Vitals Signs Vitals VS - Last 72 Hours, by Label Date Time Temp Pulse Resp B/P Pulse Ox O2 Delivery O2 Flow Rate FiO2 06/14/16 17:11 70 112/63 06/14/16 14:56 97.7 69 20 104/60 97 Room Air 97.7 06/14/16 13:38 68 124/55 06/14/16 10:10 64 84/41 06/14/16 10:05 72 107/64 06/14/16 10:00 98.2 68 18 107/53 96 Room Air 98.2 06/14/16 07:41 Room Air 06/14/16 07:00 98.1 61 18 133/66 97 Room Air 98.1 06/14/16 06:14 66 110/73 06/14/16 03:00 97.7 85 18 108/43 94 Room Air 97.7 06/13/16 23:05 98.0 65 20 116/65 97 Room Air 98.0 06/13/16 20:00 Room Air 06/13/16 19:35 98.8 72 108/70 100 Room Air 98.8 06/13/16 16:29 63 126/70 06/13/16 15:00 97.5 65 18 102/64 97 Room Air 97.5 06/13/16 11:43 98.1 65 14 107/52 94 Room Air 98.1 06/13/16 10:22 76 115/64 06/13/16 10:00 76 62/40 06/13/16 09:59 72 83/49 06/13/16 09:59 55 115/69 06/13/16 08:00 Room Air 06/13/16 07:30 97.2 68 18 138/70 97 Room Air 97.2 Laboratory Laboratory Laboratory Tests Test 06/14/16 09:05 Prothrombin Time 27.2SEC (11.7-14.0) Prothromb Time International Ratio 2.7 (0.8-1.1) Medication Medications Current Medications Docusate Sodium (Colace) 100 mg PRN DAILY PRN PO CONSTIPATION; Start 06/15/16 at 09:00 Comment Review of Relevant I have reviewed the following items jorge (where applicable) has been applied. ARLENE ZHOU MD Jun 14, 2016 18:35
--- NOTE | 2016-06-14 18:43 | PDOC ---
PROGRESS NOTES Assessment Assessment LE edema. LE weakness. Inferior vena cava thrombosis? DVT Abnormal jerking movements. Orthostatic hypotension. HTN HLD Hypothyroidism, TSH 17.7 Vit D insufficience/deficiency. Anxiety Depression DVT s/p IVC placement L-spine stenosis. RECOMMENDATIONS/PLAN: L-spine CT wo contrast performed. MRI contraindicated to L-spine MRI. Consulted Cardiology and Vascular Surgery for possible inferior vena cava thrombosis. Treat medical diseases. Vit D and Ca++ supplement, further management per PCP. OT/PT Palliative care suggested. HCT on 06/06: No acute findings. EEG on 06/07/16: Posterior dominant rhythm is slow for age. C-spine CT: see above. HISTORY OF THE PRESENT ILLNESS: 38-p-rfi-male patient was admitted due to LE edema and other medical diseases. He has been having chronic abnormal jerking like movements in hands and feet, but more obvious in hands. PAST MEDICAL HISTORY: Please see above. PAST SURGERY HISTORY: IVC placement. Knee surgery ALLERGY: Reviewed. MEDICATIONS: Refer to [facility] FAMILY HISTORY: Non contributory. Unknown PD hx. SOCIAL HISTORY: Denies smoking, drinking, and illicit drug use. REVIEW OF SYSTEMS: Constitutional: No malnutrition, weight loss, cachexia. Head: No traumatic brain or head injury. Skin: No edema, or rash. Ear: No infection, tinnitus. Eyes: No vision loss or color blindness. Nose: No bleeding or purulent discharges. Hearing: Hearing decrease. Neck: No injury. Cardiac: Syncope, HTN, HLD. Pulmonary: No COPD. GI: No GI ulcer, GI bleeding. Urinary/genital: No dysuria, hematuria, incontinence. Endocrinologic: Diabetes Mellitus Skeletomuscular: No muscular atrophy, deformity. Neurological: see HP. Psychiatric: Denies drug use/abuse. Otherwise, not [id number] review of systems. PHYSICAL EXAMINATION: General appearance is in no acute distress. HEENT: Normocephalic and nontraumatic. Eyes, nose, ears, and throat are unremarkable. Neck is supple. No lymphadenopathy. No bruits are heard over the carotid artery. No crepitus. Cardiovascular: S1, S2, regular rate and rhythm. Pulmonary: Clear to auscultation bilaterally. Abdomen: Bowel sounds are positive. Extremities: No rash, lesions. Non pitting edema in LE. No restriction of range of motion NEUROLOGICAL EXAMINATION: Eyes closed, but able to respond to exam. Oriented to place and person not not to time. PERRL. EOMI. CN: no focal findings. Muscle tone: Mildly increased in right UE. Muscle strength: 4+ UE, 3 LE DTR: 2-, 1 LE Plantar reflex: Flexor response bilaterally Gait: not examined in bed. Sensory exam: no abnormal findings. No obvious cerebellar signs elicited. F-T-N test fine. Objective Objective Vital Signs Date Time Temp Pulse Resp B/P Pulse Ox O2 Delivery O2 Flow Rate FiO2 06/14/16 17:11 70 112/63 06/14/16 14:56 97.7 20 97 Room Air 97.7 Intake and Output 06/14/16 07:00 Intake Total 640 ml Balance 640 ml Intake Oral 640 ml # Voids 5 # Bowel Movements 3 Vitals Signs Vitals VS - Last 72 Hours, by Label Date Time Temp Pulse Resp B/P Pulse Ox O2 Delivery O2 Flow Rate FiO2 06/14/16 17:11 70 112/63 06/14/16 14:56 97.7 69 20 104/60 97 Room Air 97.7 06/14/16 13:38 68 124/55 06/14/16 10:10 64 84/41 06/14/16 10:05 72 107/64 06/14/16 10:00 98.2 68 18 107/53 96 Room Air 98.2 06/14/16 07:41 Room Air 06/14/16 07:00 98.1 61 18 133/66 97 Room Air 98.1 06/14/16 06:14 66 110/73 06/14/16 03:00 97.7 85 18 108/43 94 Room Air 97.7 06/13/16 23:05 98.0 65 20 116/65 97 Room Air 98.0 06/13/16 20:00 Room Air 06/13/16 19:35 98.8 72 108/70 100 Room Air 98.8 06/13/16 16:29 63 126/70 06/13/16 15:00 97.5 65 18 102/64 97 Room Air 97.5 06/13/16 11:43 98.1 65 14 107/52 94 Room Air 98.1 06/13/16 10:22 76 115/64 06/13/16 10:00 76 62/40 06/13/16 09:59 72 83/49 06/13/16 09:59 55 115/69 06/13/16 08:00 Room Air 06/13/16 07:30 97.2 68 18 138/70 97 Room Air 97.2 Laboratory Laboratory Laboratory Tests Test 06/14/16 09:05 Prothrombin Time 27.2SEC (11.7-14.0) Prothromb Time International Ratio 2.7 (0.8-1.1) Medication Medications Current Medications Docusate Sodium (Colace) 100 mg PRN DAILY PRN PO CONSTIPATION; Start 06/15/16 at 09:00 Comment Review of Relevant I have reviewed the following items jorge (where applicable) has been applied. ARLENE ZHOU MD Jun 14, 2016 18:43
[2016-06-15 03:05] VITALS: BP 106/78
[2016-06-15] MEDS: LEVOTHYROXINE 175 MCG TABLET PO SCH (06:36)
[2016-06-15] MEDS: LANSOPRAZOLE 30 MG TAB.RAP.DR FT SCH (06:36)
[2016-06-15] MEDS: MIDODRINE 2.5 MG TABLET PO SCH ×3 (06:36→17:41)
[2016-06-15 07:30] VITALS: BP 125/74
[2016-06-15] MEDS ORDERED: DOCUSATE SODIUM 100 MG CAPSULE PO PRN (09:00)
[2016-06-15] MEDS: FLUDROCORTISONE 0.1 MG TABLET PO SCH (09:05)
[2016-06-15] MEDS: CLONAZEPAM 0.5 MG TABLET PO SCH ×2 (09:05→21:27)
[2016-06-15] MEDS: CHOLECALCIFEROL (VITAMIN D3) 5,000 UNIT CAPSULE PO SCH (09:05)
[2016-06-15] MEDS: MULTIVITAMIN with MINERAL TABLET. PO SCH (09:05)
[2016-06-15] MEDS: ASPIRIN 81 MG TAB.CHEW PO SCH (09:05)
[2016-06-15] MEDS: CALCIUM CARBONATE 500 MG TABLET PO SCH ×2 (09:05→17:40)
[2016-06-15] MEDS: CITALOPRAM 20 MG TABLET. PO SCH (09:05)
[2016-06-15 11:15] VITALS: BP 116/61
--- NOTE | 2016-06-15 12:18 | PDOC ---
PROGRESS NOTES Chief Complaint Chief Complaint A/P 1. Acute DVT: extensive to bilateral LE on Warfarin, and bl iliac DVT 2. Bilateral lower extremity swelling 2/2 DVT, Echo normal EF, 3. HTN 5. Hx of DVT/PE: IVC filter in place 6. severe Alzheimer dementia: at baseline 7. Hx of CVA 8. Hypothyroidism, not controlled, TSH 15 9. Jerky movements 10. Orthostatic Hypotension 11. diarrhea Plan 1. EEG no acute findings. 2.IR consuled, given pt extensive Lower body DVT, could do thrombolysis. However , given pt severe demented, with other comorbidities, might not be a candidate for this extensive procedure 3. Hold metoprolol, IVF today, add midodrine tid 4. Echo results reviewed NO CHF 5. PT/OT 6. Ctalked to SW again, recommend SNF, but seems family just wanna go home. PAT consulted, DNR. add PPN for now given low po intake i talked to pts and daughter yesterday, dont think pt is a good candidate to do thrombolysis, waiting for IR to talk to family cdiff pending History of Present Illness History of Present Illness no fever no chills severe orthostatic hypotension very demented diarrhea last night, refuse eat today, cdiff pending Vitals Vitals Vital Signs Date Time Temp Pulse Resp B/P Pulse Ox O2 Delivery O2 Flow Rate FiO2 06/15/16 11:15 97.6 62 18 116/61 92 Room Air 97.6 Physical Exam Physical Exam not answer questions or follow commands General: Alert, Cooperative, No acute distress, Other (not oriented. ) Heart: Regular rate, Normal S1, Normal S2, Other Lungs: Crackles Abdomen: Normal bowel sounds, Soft, Other (unable to assess due to active tension to abdominal muscles during palpation, but notable grimacing) Extremities: Other (2-3+ bilateral LE pitting edema from foot to thigh. scrotal edema, ) Skin: No rashes, No breakdown, No significant lesion, Other (multiple small scab lesions to left thigh) Review of Systems Review of Systems no fever, chills, sob or chest pain Assessment and Plan Assessmemt and Plan Problems Medical Problems: (1) Anasarca Status: Acute (2) Orthostatic hypotension Status: Acute Problems: Comment Review of Relevant I have reviewed the following items jorge (where applicable) has been applied. Labs Laboratory Tests Test 06/14/16 09:05 Prothrombin Time 27.2SEC (11.7-14.0) Prothromb Time International Ratio 2.7 (0.8-1.1) Medications Current Medications Furosemide (Lasix) 40 mg 1X ONCE IVP Last administered on 06/02/16 22:13; Start 06/02/16 at 22:00; Stop 06/02/16 at 22:01; Status DC Ondansetron HCl (Zofran) 4 mg PRN Q8HRS PRN IV NAUSEA/VOMITING; Start 06/02/16 at 23:00; Stop 06/03/16 at 22:59; Status DC Acetaminophen (Tylenol) 650 mg PRN Q4HRS PRN PO FEVER; Start 06/02/16 at 23:00 ; Stop 06/03/16 at 22:59; Status DC Furosemide (Lasix) 40 mg 1X ONCE IVP Last administered on 06/03/16 12:23; Start 06/03/16 at 12:00; Stop 06/03/16 at 12:01; Status DC Aspirin (Children'S Aspirin) 81 mg DAILY PO Last administered on 06/15/16 09:05 ; Start 06/03/16 at 15:00 Enoxaparin Sodium (Lovenox 100mg Syringe) 100 mg BID SQ Last administered on 21:01; Start 06/03/16 at 14:00; Stop 06/05/16 at 12:51; Status DC Levothyroxine Sodium (Synthroid) 150 mcg DAILYAC PO Last administered on 08:32; Start 06/04/16 at 07:30; Stop 06/08/16 at 11:57; Status DC Warfarin Sodium (Coumadin) 5 mg DAILY PO ; Start 06/04/16 at 09:00; Stop at 09:00; Status DC Citalopram Hydrobromide (Celexa) 40 mg DAILY PO Last administered on 06/15/16 09:05; Start 06/03/16 at 15:00 Non-Formulary Medication 1 tab QHS PO ; Start 06/03/16 at 21:00; Stop 06/03/16 at 21:00; Status DC Pantoprazole Sodium (Protonix) 40 mg DAILYAC PO Last administered on 06/09/16 06:53; Start 06/03/16 at 17:30; Stop 06/10/16 at 08:03; Status DC Docusate Sodium (Colace) 100 mg DAILY PO Last administered on 06/12/16 14:48; Start 06/03/16 at 15:00; Stop 06/14/16 at 12:25; Status DC Multivitamins/ Calcium (Thera M Plus) 1 tab DAILY PO Last administered on 09:05; Start 06/03/16 at 15:00 Warfarin Sodium (Coumadin Per Pharmacy) 1 each PRN DAILY PRN MC SEE COMMENTS Last administered on 06/15/16 11:11; Start 06/03/16 at 15:00 Warfarin Sodium (Coumadin) 6 mg 1X WARF ONCE PO Last administered on 17:25; Start 06/03/16 at 16:00; Stop 06/03/16 at 16:01; Status DC Warfarin Sodium (Coumadin) 5 mg DAILY16 PO Last administered on 06/14/16 17:07 ; Start 06/04/16 at 18:51 Info (Anti-Coagulation Monitoring By Pharmacy) 1 each PRN DAILY PRN MC SEE COMMENTS; Start 06/04/16 at 19:00; Stop 06/05/16 at 12:51; Status DC Clonazepam (Klonopin) 0.5 mg BID PO Last administered on 06/15/16 09:05; Start 06/06/16 at 15:15 Metoprolol Succinate (Toprol Xl) 25 mg DAILY PO ; Start 06/06/16 at 18:00; Stop 06/07/16 at 16:24; Status DC Polyethylene Glycol (miraLAX PACKET) 17 gm 1X ONCE PO Last administered on 08:32; Start 06/08/16 at 08:00; Stop 06/08/16 at 08:04; Status DC Vitamin D (Vitamin D3) 5,000 unit DAILY PO Last administered on 06/15/16 09:05 ; Start 06/08/16 at 11:00 Calcium Carbonate/ Glycine (Oscal) 500 mg BIDWMEALS PO Last administered on 06/15 09:05; Start 06/08/16 at 11:30 Midodrine 2.5 mg 2.5 mg [id number] PO Last administered on 06/09/16 13:58; Start 06/08/16 at 13:00; Stop 06/09/16 at 16:19; Status DC Sodium Chloride (Iv Sodium Chloride 0.9% 500ml Bag) 500 ml @ 500 mls/hr 1X ONCE IV Last administered on 06/08/16 11:59; Start 06/08/16 at 12:00; Stop at 12:59; Status DC Levothyroxine Sodium (Synthroid) 175 mcg DAILY07 PO Last administered on 06:36; Start 06/09/16 at 07:00 Lorazepam (Ativan) 1 mg 1X ONCE IV Last administered on 06/08/16 18:25; Start 06/08/16 at 18:20; Stop 06/08/16 at 18:21; Status DC Iohexol (Omnipaque 300 Mg/ml) 75 ml 1X ONCE IV Last administered on 06/09/16 15:22; Start 06/09/16 at 15:00; Stop 06/09/16 at 15:01; Status DC Info (Do NOT chart on this entry -- for MONITORING) 1 each PRN DAILY PRN MC SEE COMMENTS; Start 06/09/16 at 15:00; Stop 06/11/16 at 14:59; Status DC Midodrine (Proamatine) 2.5 mg [id number] PRN PO ELEVATED BP, SEE COMMENTS Last administered on 06/12/16 15:09; Start 06/09/16 at 16:30; Stop 06/13/16 at 10:03 ; Status DC Fludrocortisone Acetate (Florinef) 0.1 mg DAILY PO Last administered on 09:05; Start 06/09/16 at 17:00 Lansoprazole (Prevacid) 30 mg DAILYAC FT Last administered on 06/15/16 06:36; Start 06/10/16 at 08:30 Polyethylene Glycol 17 gm 17 gm PRN DAILY PRN PO CONSTIPATION Last administered on 06/11/16 13:47; Start 06/11/16 at 13:30 Sodium Chloride (Iv Sodium Chloride 0.9% 1000ml Bag) 1,000 ml @ 100 mls/hr 1X ONCE IV Last administered on 06/12/16 15:11; Start 06/12/16 at 14:30; Stop at 00:29; Status DC Midodrine (Proamatine) 2.5 mg [id number] PO ; Start 06/13/16 at 13:00; Stop at 13:00; Status DC Midodrine (Proamatine) 2.5 mg [id number] PO Last administered on 06/15/16 06:36; Start 06/13/16 at 10:15 Acetaminophen 650 mg 650 mg PRN Q6HRS PRN PO MILD PAIN / TEMP; Start 06/13/16 at 12:00 Sodium Chloride (Iv Sodium Chloride 0.9% 1000ml Bag) 1,000 ml @ 100 mls/hr 1X ONCE IV Last administered on 06/13/16 12:26; Start 06/13/16 at 12:00; Stop at 21:59; Status DC Docusate Sodium (Colace) 100 mg PRN DAILY PRN PO CONSTIPATION; Start 06/15/16 at 09:00 Active Scripts Active Klonopin (Clonazepam) 0.5 Mg Tablet 1 Tab PO BID Reported Levothyroxine Sodium 150 Mcg Tablet 150 Mcg PO DAILY Warfarin Sodium 5 Mg Tablet 5 Mg PO DAILY Citalopram Hbr (Citalopram Hydrobromide) 40 Mg Tablet 40 Mg PO DAILY Stool Softener (Docusate Sodium) 50 Mg Capsule Unknown Dose PO Daily Vitamin (Multivitamin) 1 Each Tablet 1 Each PO Melatonin 3 Mg Tablet 1 Tab PO QHS Aspirin 81 Mg Tab.chew 1 Tab PO DAILY Simvastatin 40 Mg Tablet 1 Tab PO QHS Omeprazole 40 Mg Capsule. 1 Cap PO DAILY Vitals/I & O Vital Sign - Last 24 Hours 06/14/16 06/14/16 06/14/16 06/14/16 13:38 14:56 17:11 19:00 Temp 97.7 98.9 97.7 98.9 Pulse 68 69 70 68 Resp 20 18 B/P 124/55 104/60 112/63 104/58 Pulse Ox 97 97 O2 Delivery Room Air Room Air 06/14/16 06/14/16 06/15/16 06/15/16 20:00 23:00 03:05 06:36 Temp 98.8 98.6 98.8 98.6 Pulse 63 67 67 Resp 18 20 B/P 100/62 106/78 129/75 Pulse Ox 95 98 O2 Delivery Room Air Room Air Room Air 06/15/16 06/15/16 06/15/16 07:30 08:00 11:15 Temp 97.8 97.6 97.8 97.6 Pulse 63 62 Resp 14 18 B/P 125/74 116/61 Pulse Ox 96 92 O2 Delivery Room Air Room Air Room Air Intake and Output 06/14/16 06/14/16 06/15/16 15:00 23:00 07:00 Intake Total 120 ml 720 ml 120 ml Balance 120 ml 720 ml 120 ml GREGORY ZUNIGA MD Jun 15, 2016 12:18
[2016-06-15] MEDS: AA 3%/ELECTROLYTE-TPN SOLN/GLY 1,000 ML IV SCH (12:42)
--- NOTE | 2016-06-15 14:52 | PDOC ---
PROGRESS NOTES Assessment Assessment LE edema. LE weakness. Inferior vena cava thrombosis. DVT Abnormal jerking movements. Orthostatic hypotension. HTN HLD Hypothyroidism, TSH 17.7 Vit D insufficience/deficiency. Anxiety Depression DVT s/p IVC placement L-spine stenosis. RECOMMENDATIONS/PLAN: L-spine CT wo contrast performed. MRI contraindicated to L-spine MRI. Consulted Cardiology and Vascular Surgery for possible inferior vena cava thrombosis. Treat medical diseases. Vit D and Ca++ supplement, further management per PCP. OT/PT Palliative care per family. HCT on 06/06: No acute findings. EEG on 06/07/16: Posterior dominant rhythm is slow for age. C-spine CT: see above. HISTORY OF THE PRESENT ILLNESS: 45-j-obz-male patient was admitted due to LE edema and other medical diseases. He has been having chronic abnormal jerking like movements in hands and feet, but more obvious in hands. His abnormal movements were controlled. PAST MEDICAL HISTORY: Please see above. PAST SURGERY HISTORY: IVC placement. Knee surgery ALLERGY: Reviewed. MEDICATIONS: Refer to [facility] FAMILY HISTORY: Non contributory. Unknown PD hx. SOCIAL HISTORY: Denies smoking, drinking, and illicit drug use. REVIEW OF SYSTEMS: Constitutional: No malnutrition, weight loss, cachexia. Head: No traumatic brain or head injury. Skin: No edema, or rash. Ear: No infection, tinnitus. Eyes: No vision loss or color blindness. Nose: No bleeding or purulent discharges. Hearing: Hearing decrease. Neck: No injury. Cardiac: Syncope, HTN, HLD. Pulmonary: No COPD. GI: No GI ulcer, GI bleeding. Urinary/genital: No dysuria, hematuria, incontinence. Endocrinologic: Diabetes Mellitus Skeletomuscular: No muscular atrophy, deformity. Neurological: see HP. Psychiatric: Denies drug use/abuse. Otherwise, not [id number] review of systems. PHYSICAL EXAMINATION: General appearance is in no acute distress. HEENT: Normocephalic and nontraumatic. Eyes, nose, ears, and throat are unremarkable. Neck is supple. No lymphadenopathy. No bruits are heard over the carotid artery. No crepitus. Cardiovascular: S1, S2, regular rate and rhythm. Pulmonary: Clear to auscultation bilaterally. Abdomen: Bowel sounds are positive. Extremities: No rash, lesions. Non pitting edema in LE. No restriction of range of motion NEUROLOGICAL EXAMINATION: Sleepiness but arousable. Oriented to place and person not not to time. PERRL. EOMI. CN: no focal findings. Muscle tone: Mildly increased in right UE. Muscle strength: 4+ UE, 3 LE DTR: 2-, 1 LE Plantar reflex: Flexor response bilaterally Gait: Unable to walk. Sensory exam: decreased in LE.. No obvious cerebellar signs elicited. . Objective Objective Vital Signs Date Time Temp Pulse Resp B/P Pulse Ox O2 Delivery O2 Flow Rate FiO2 06/15/16 12:42 116/61 06/15/16 11:15 97.6 62 18 92 Room Air 97.6 Intake and Output 06/15/16 07:00 Intake Total 960 ml Balance 960 ml Intake Oral 960 ml # Voids 4 # Bowel Movements 3 Vitals Signs Vitals VS - Last 72 Hours, by Label Date Time Temp Pulse Resp B/P Pulse Ox O2 Delivery O2 Flow Rate FiO2 06/15/16 12:42 116/61 06/15/16 11:15 97.6 62 18 116/61 92 Room Air 97.6 06/15/16 08:00 Room Air 06/15/16 07:30 97.8 63 14 125/74 96 Room Air 97.8 06/15/16 06:36 67 129/75 06/15/16 03:05 98.6 67 20 106/78 98 Room Air 98.6 06/14/16 23:00 98.8 63 18 100/62 95 Room Air 98.8 06/14/16 20:00 Room Air 06/14/16 19:00 98.9 68 18 104/58 97 Room Air 98.9 06/14/16 17:11 70 112/63 06/14/16 14:56 97.7 69 20 104/60 97 Room Air 97.7 06/14/16 13:38 68 124/55 06/14/16 10:10 64 84/41 06/14/16 10:05 72 107/64 06/14/16 10:00 98.2 68 18 107/53 96 Room Air 98.2 06/14/16 07:41 Room Air 06/14/16 07:00 98.1 61 18 133/66 97 Room Air 98.1 Medication Medications Current Medications Amino Acids/ Glycerin/ Electrolytes (Procalamine) 1,000 ml @ 60 mls/hr [id number] IV Last administered on 06/15/16t 12:42; Start 06/15/16 at 12:15 Docusate Sodium 100 mg 100 mg PRN DAILY PRN PO CONSTIPATION; Start 06/15/16 at 09:00 Comment Review of Relevant I have reviewed the following items jorge (where applicable) has been applied. ARLENE ZHOU MD Jun 15, 2016 14:52
[2016-06-15 15:30] VITALS: BP 100/63
--- NOTE | 2016-06-15 16:07 | PDOC2 ---
PALLIATIVE CARE Palliative Care Note Palliative Care Patient remains confused. Spoke with /DPOA Vi. She has spoke with Dr. Rosenberg and has decided on no more procedures/surgery. Copy of Advanced Directive placed on record. She would like hospice when discharged. Spoke with Leanna who will assist with discharge. Baldo has reviewed. DME: Bed with rales; bed alarm; bedside table, MARYSE HEATH Jun 15, 2016 16:07
[2016-06-15] MEDS: WARFARIN 5 MG TABLET. PO SCH (16:14)
[2016-06-15 19:00] VITALS: BP 117/69
[2016-06-15 23:00] VITALS: BP 125/74
[2016-06-16 03:04] VITALS: BP 120/65
[2016-06-16 05:08] LABS: BASO # 0.1 x10^3/uL (0.0-0.2); BASO % 1 % (0-3); EOS % 3 % (0-3); HEMATOCRIT 31.3 % (39.0-53.0); HEMOGLOBIN 10.7 g/dL (13.0-17.5); LYMPH % 29 % (24-48); MEAN CORPUSCULAR HEMOGLOBIN 29 pg (25-35); MEAN CORPUSCULAR HGB CONC 34 g/dL (31-37); MEAN CORPUSCULAR VOLUME 85 fL (79-100); MONO % 9 % (0-9); NEUT % 58 % (31-73); PLATELET COUNT 276 x10^3/uL (140-400); RED BLOOD COUNT 3.67 x10^6/uL (4.30-5.70); RED CELL DISTRIBUTION WIDTH 15.4 % (11.5-14.5); WHITE BLOOD COUNT 6.9 x10^3/uL (4.0-11.0)
[2016-06-16 05:18] LABS: INR 2.6 (0.8-1.1); PROTHROMBIN TIME PATIENT 26.5 SEC (11.7-14.0)
[2016-06-16] MEDS: AA 3%/ELECTROLYTE-TPN SOLN/GLY 1,000 ML IV SCH (05:35)
[2016-06-16] MEDS: LANSOPRAZOLE 30 MG TAB.RAP.DR FT SCH (05:37)
[2016-06-16] MEDS: LEVOTHYROXINE 175 MCG TABLET PO SCH (05:38)
[2016-06-16] MEDS: MIDODRINE 2.5 MG TABLET PO SCH ×2 (05:38→12:25)
[2016-06-16 05:44] LABS: CALCIUM 8.5 mg/dL (8.5-10.1); CREATININE 1.1 mg/dL (0.7-1.3); GFR 65.3; POTASSIUM 4.1 mmol/L (3.5-5.1)
[2016-06-16 07:20] VITALS: BP 123/75
[2016-06-16] MEDS: CLONAZEPAM 0.5 MG TABLET PO SCH (08:49)
[2016-06-16] MEDS: ASPIRIN 81 MG TAB.CHEW PO SCH (08:49)
[2016-06-16] MEDS: FLUDROCORTISONE 0.1 MG TABLET PO SCH (08:49)
[2016-06-16] MEDS: CITALOPRAM 20 MG TABLET. PO SCH (08:49)
[2016-06-16] MEDS: CALCIUM CARBONATE 500 MG TABLET PO SCH (08:49)
[2016-06-16] MEDS: MULTIVITAMIN with MINERAL TABLET. PO SCH (08:49)
[2016-06-16] MEDS: CHOLECALCIFEROL (VITAMIN D3) 5,000 UNIT CAPSULE PO SCH (08:49)
--- NOTE | 2016-06-16 09:31 | PDOC ---
PROGRESS NOTES Chief Complaint Chief Complaint LE edema ASSESSMENT AND PLAN: 1. Acute DVT: extensive to bilateral LE ti iliacs. therapeutic on warfarin, not a candidate for thrombolysis 2. 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 Alzheimer dementia: severe, at baseline 5. Jerky movements: neuro W/U without evidence of sz 6. HTN 7. Orthostatic Hypotension: ongoing. mitodrine added 8. Diarrhea: ongoing. C. diff neg. loperamide PRN 9. Hypothyroidism, not controlled, TSH 15 10. Hx CVA 10. Dispo: home w/ Hospice today. DNR Vitals Vitals Vital Signs Date Time Temp Pulse Resp B/P Pulse Ox O2 Delivery O2 Flow Rate FiO2 06/16/16 08:00 Room Air 06/16/16 07:20 97.5 60 18 123/75 98 97.5 Physical Exam Physical Exam not answer questions or follow commands. mumbles incoherently General: No acute distress, Other (awake, not following commands) Heart: Regular rate, Other Lungs: Crackles Abdomen: Normal bowel sounds, Soft Extremities: Other (2-3+ bilateral LE pitting edema from foot to thigh. scrotal edema, ) Skin: No rashes, Other (multiple small scab lesions to left thigh) Labs LABS Laboratory Tests Test 06/16/16 04:20 White Blood Count 6.9x10^3/uL (4.0-11.0) Red Blood Count 3.67x10^6/uL (4.30-5.70) Hemoglobin 10.7g/dL (13.0-17.5) Hematocrit 31.3% (39.0-53.0) Mean Corpuscular Volume 85fL (79-100) Mean Corpuscular Hemoglobin 29pg (25-35) Mean Corpuscular Hemoglobin Concent 34g/dL (31-37) Red Cell Distribution Width 15.4% (11.5-14.5) Platelet Count 276x10^3/uL (140-400) Neutrophils (%) (Auto) 58% (31-73) Lymphocytes (%) (Auto) 29% (24-48) Monocytes (%) (Auto) 9% (0-9) Eosinophils (%) (Auto) 3% (0-3) Basophils (%) (Auto) 1% (0-3) Neutrophils # (Auto) 4.0x10^3uL (1.8-7.7) Lymphocytes # (Auto) 2.0x10^3/uL (1.0-4.8) Monocytes # (Auto) 0.6x10^3/uL (0.0-1.1) Eosinophils # (Auto) 0.2x10^3/uL (0.0-0.7) Basophils # (Auto) 0.1x10^3/uL (0.0-0.2) Prothrombin Time 26.5SEC (11.7-14.0) Prothromb Time International Ratio 2.6 (0.8-1.1) Sodium Level 143mmol/L (136-145) Potassium Level 4.1mmol/L (3.5-5.1) Chloride Level 107mmol/L (98-107) Carbon Dioxide Level 30mmol/L (21-32) Anion Gap 6 (6-14) Blood Urea Nitrogen 16mg/dL (8-26) Creatinine 1.1mg/dL (0.7-1.3) Estimated GFR (Cockcroft-Gault) 65.3 Glucose Level 101mg/dL (70-99) Calcium Level 8.5mg/dL (8.5-10.1) Review of Systems Review of Systems nonverbal MISSAEL MONTE MD Jun 16, 2016 09:31
[2016-06-16 10:38] VITALS: BP_SYST 109; BP_SYST 111; BP_DIAS 66
[2016-06-16 10:39] VITALS: BP 78/55
[2016-06-16 10:44] VITALS: BP_SYST 123; BP_SYST 99; BP_DIAS 62; BP_DIAS 75
--- NOTE | 2016-06-16 11:24 | DISCH ---
DISCHARGE INSTRUCTIONS Condition on Discharge Condition on Discharge: Stable Activity After Discharge Activity Instructions for Disc: Resume previous activity Diet after Discharge Diet after Discharge: Regular Contacting the DR. after DC Call your doctor for: Concerns you may have Follow-Up Follow up with: PCP as needed MISSAEL MONTE MD Jun 16, 2016 11:24
--- NOTE | 2016-06-16 11:25 | PDOC ---
PROGRESS NOTES Assessment Assessment LE edema. LE weakness. Inferior vena cava thrombosis. DVT Abnormal jerking movements. Orthostatic hypotension. HTN HLD Hypothyroidism, TSH 17.7 Vit D insufficience/deficiency. Anxiety Depression DVT s/p IVC placement L-spine stenosis. RECOMMENDATIONS/PLAN: MRI contraindicated. Consulted Cardiology and Vascular Surgery for inferior vena cava thrombosis. He is not a surgical candidate. Treat medical diseases. Vit D and Ca++ supplement, further management per PCP. OT/PT Palliative care per family. HCT on 06/06: No acute findings. EEG on 06/07/16: Posterior dominant rhythm is slow for age. L-spine CT: see above. HISTORY OF THE PRESENT ILLNESS: [id number]-male patient was admitted due to LE edema and other medical diseases. He has been having chronic abnormal jerking like movements in hands and feet, but more obvious in hands. His abnormal movements were controlled. His mentation improved in some degree, but his LE edema is the same. PAST MEDICAL HISTORY: Please see above. PAST SURGERY HISTORY: IVC placement. Knee surgery ALLERGY: Reviewed. MEDICATIONS: Refer to [facility] FAMILY HISTORY: Non contributory. Unknown PD hx. SOCIAL HISTORY: Denies smoking, drinking, and illicit drug use. REVIEW OF SYSTEMS: Constitutional: No malnutrition, weight loss, cachexia. Head: No traumatic brain or head injury. Skin: No edema, or rash. Ear: No infection, tinnitus. Eyes: No vision loss or color blindness. Nose: No bleeding or purulent discharges. Hearing: Hearing decrease. Neck: No injury. Cardiac: Syncope, HTN, HLD. Pulmonary: No COPD. GI: No GI ulcer, GI bleeding. Urinary/genital: No dysuria, hematuria, incontinence. Endocrinologic: Diabetes Mellitus Skeletomuscular: No muscular atrophy, deformity. Neurological: see HP. Psychiatric: Denies drug use/abuse. Otherwise, not [id number] review of systems. PHYSICAL EXAMINATION: General appearance is in no acute distress. HEENT: Normocephalic and nontraumatic. Eyes, nose, ears, and throat are unremarkable. Neck is supple. No lymphadenopathy. No bruits are heard over the carotid artery. No crepitus. Cardiovascular: S1, S2, regular rate and rhythm. Pulmonary: Clear to auscultation bilaterally. Abdomen: Bowel sounds are positive. Extremities: No rash, lesions. Non pitting edema in LE. No restriction of range of motion NEUROLOGICAL EXAMINATION: Awake. Able to answer a few questions and follow a few commands. Oriented to place and person but not to time. PERRL. EOMI. CN: no focal findings. Muscle tone: Mildly increased in right UE. Muscle strength: 4+ UE, 3 LE. edema LE DTR: 2-, 1 LE Plantar reflex: Flexor response bilaterally Gait: Unable to walk. Sensory exam: decreased in LE.. No obvious cerebellar signs elicited. . Objective Objective Vital Signs Date Time Temp Pulse Resp B/P Pulse Ox O2 Delivery O2 Flow Rate FiO2 06/16/16 10:44 98.0 62 18 99/62 97 Room Air 98.0 Intake and Output 06/16/16 07:00 Intake Total 1180 ml Balance 1180 ml Intake Oral 180 ml IV Total 1000 ml # Voids 5 # Bowel Movements 8 Vitals Signs Vitals VS - Last 72 Hours, by Label Date Time Temp Pulse Resp B/P Pulse Ox O2 Delivery O2 Flow Rate FiO2 06/16/16 10:44 98.0 62 18 99/62 97 Room Air 98.0 06/16/16 10:39 78/55 06/16/16 10:38 109/66 06/16/16 10:38 111/66 06/16/16 08:00 Room Air 06/16/16 07:20 97.5 60 18 123/75 98 Room Air 97.5 06/16/16 05:38 57 113/69 06/16/16 03:04 98.7 58 20 120/65 97 Room Air 98.7 06/15/16 23:00 98.5 64 20 125/74 95 Room Air 98.5 06/15/16 20:00 Room Air 06/15/16 19:00 97.8 68 20 117/69 97 Room Air 97.8 06/15/16 17:41 100/63 06/15/16 15:30 97.6 69 18 100/63 96 Room Air 97.6 06/15/16 12:42 116/61 06/15/16 11:15 97.6 62 18 116/61 92 Room Air 97.6 06/15/16 08:00 Room Air 06/15/16 07:30 97.8 63 14 125/74 96 Room Air 97.8 Laboratory Laboratory Laboratory Tests Test 06/16/16 04:20 White Blood Count 6.9x10^3/uL (4.0-11.0) Red Blood Count 3.67x10^6/uL (4.30-5.70) Hemoglobin 10.7g/dL (13.0-17.5) Hematocrit 31.3% (39.0-53.0) Mean Corpuscular Volume 85fL (79-100) Mean Corpuscular Hemoglobin 29pg (25-35) Mean Corpuscular Hemoglobin Concent 34g/dL (31-37) Red Cell Distribution Width 15.4% (11.5-14.5) Platelet Count 276x10^3/uL (140-400) Neutrophils (%) (Auto) 58% (31-73) Lymphocytes (%) (Auto) 29% (24-48) Monocytes (%) (Auto) 9% (0-9) Eosinophils (%) (Auto) 3% (0-3) Basophils (%) (Auto) 1% (0-3) Neutrophils # (Auto) 4.0x10^3uL (1.8-7.7) Lymphocytes # (Auto) 2.0x10^3/uL (1.0-4.8) Monocytes # (Auto) 0.6x10^3/uL (0.0-1.1) Eosinophils # (Auto) 0.2x10^3/uL (0.0-0.7) Basophils # (Auto) 0.1x10^3/uL (0.0-0.2) Prothrombin Time 26.5SEC (11.7-14.0) Prothromb Time International Ratio 2.6 (0.8-1.1) Sodium Level 143mmol/L (136-145) Potassium Level 4.1mmol/L (3.5-5.1) Chloride Level 107mmol/L (98-107) Carbon Dioxide Level 30mmol/L (21-32) Anion Gap 6 (6-14) Blood Urea Nitrogen 16mg/dL (8-26) Creatinine 1.1mg/dL (0.7-1.3) Estimated GFR (Cockcroft-Gault) 65.3 Glucose Level 101mg/dL (70-99) Calcium Level 8.5mg/dL (8.5-10.1) Medication Medications Current Medications Amino Acids/ Glycerin/ Electrolytes (Procalamine) 1,000 ml @ 60 mls/hr [id number] IV Last administered on 06/16/16t 05:35; Start 06/15/16 at 12:15 Comment Review of Relevant I have reviewed the following items jorge (where applicable) has been applied. ARLENE ZHOU MD Jun 16, 2016 11:25
[2016-06-16] MEDS ORDERED: LOPE2TAB27 PO (11:27)
[2016-06-16 15:07] VITALS: BP 106/71
[2016-06-16] MEDS: WARFARIN 5 MG TABLET. PO SCH (15:15)
--- NOTE | 2016-06-19 10:00 | DS ---
DATE OF DISCHARGE: 06/16/2016 CHIEF COMPLAINT: Lower extremity edema. HOSPITAL COURSE: The patient is a 76-year-old gentleman who presented to the Emergency Room with several days of lower extremity edema in both legs. Although initially thought to be fluid overload, ultrasound actually revealed this to be extensive clot burden in both lower extremities up to the iliacs. Because of comorbidities, he was not deemed a candidate for thrombolysis. He was therefore started on warfarin and kept therapeutic. His symptoms slowly improved. He actually did have a history of previous DVT/PE and an IVC filter is already in place. His other chronic issues including hypertension, orthostatic hypotension, hypothyroidism, CVA, and dementia were essentially stable and the patient was continued on home medications. Had developed diarrhea here, which was C. diff negative. In discussion with family, he was deemed appropriate for hospice care and discharged to home with hospice. PHYSICAL EXAMINATION: Please refer to note from same day. DISCHARGE DATE: 06/16/2016 DISCHARGE CONDITION: Home with hospice. DISCHARGE CONDITION: Stable. DISCHARGE DIAGNOSES: 1. Extensive lower extremity deep venous thrombosis to iliacs. 2. Alzheimer dementia. DISCHARGE MEDICATIONS: Please refer to [facility]. DISCHARGE INSTRUCTIONS: The patient will follow up with hospice. He will see PCP as needed. MISSAEL MONTE MD DR: [email or web address]/[id number] JOB#: [id number] / [id number] Nhi Campos MD
== END 2016-06-16 16:30 | disposition home or self-care (01) | DRG 300 ==
LOC: ER 20:44 → 5 NORTH 23:32
PROVIDERS: ADMIT Internal Medicine; ATTEND Internal Medicine
DX: I82.422 Acute embolism and thrombosis of left iliac vein (principal); E44.1 Mild protein-calorie malnutrition; I82.220 Acute embolism and thrombosis of inferior vena cava; E03.9 Hypothyroidism, unspecified; E11.9 Type 2 diabetes mellitus without complications; Z68.32 Body mass index [BMI] 32.0-32.9, adult; E78.5 Hyperlipidemia, unspecified; F02.80 Dementia in other diseases classified elsewhere, unspecified severity, without behavioral disturbance, psychotic disturbance, mood disturbance, and anxiety; F41.8 Other specified anxiety disorders; G30.9 Alzheimer's disease, unspecified; G47.33 Obstructive sleep apnea (adult) (pediatric); I10 Essential (primary) hypertension; I95.1 Orthostatic hypotension; M41.9 Scoliosis, unspecified; I82.403 Acute embolism and thrombosis of unspecified deep veins of lower extremity, bilateral; M43.16 Spondylolisthesis, lumbar region; M48.00 Spinal stenosis, site unspecified; N20.0 Calculus of kidney; M19.90 Unspecified osteoarthritis, unspecified site; Z96.659 Presence of unspecified artificial knee joint; N50.89 Other specified disorders of the male genital organs; Z51.5 Encounter for palliative care; Z83.3 Family history of diabetes mellitus; Z86.711 Personal history of pulmonary embolism; Z86.73 Personal history of transient ischemic attack (TIA), and cerebral infarction without residual deficits; Z79.01 Long term (current) use of anticoagulants
CPT/HCPCS: 36415; 51702; 70450; 71010; 74177; 76705; 80048; 80053; 80076; 82306; 82310; 82533; 82550; 82607; 83735; 83880; 83970; 84443; 84484; 85007; 85027; 85610; 87324; 93005; 93306; 93970; 95816; 96374; 96376; J1650; J1940; J2060; J7030; J7040; Q9967; 97116; 97530; 97535; 99285-25